=== PATIENT | male | born 1990 | race Caucasian/White ===

== ENCOUNTER 2017-05-18 21:27 | Emergency (ER) | payer OTHER ==
--- NOTE | 2017-05-18 23:30 | ERPHSYRPT ---
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 ALERT/ORIENTED - FLAT AFFECT. SKIN FLUSHED/HOT/DRY - NO RASH/INJURY APPRECIATED. RESPS EASY NON-LABORED Physician History: The patient is a 27-year-old male with his mother and is a poor historian. He states that he used to weigh 285 pounds and now weighs 250 pounds. At first he said he lost the 35 pounds in a period of 2 2-1/2 weeks but his mother corrected him saying that it has been several months. For several weeks after eating he sometimes vomits a partial amount of his food. It begins by belching and then he vomits because it makes him breathe better. He is been trying to watch is diet and eat better. He denies having any vomiting or abdominal pain today. He saw his family doctor a few weeks ago and was told this might be his gallbladder. He also complains that he smelled and irritating gas at work several weeks ago when bleach and on discharge detergent were mixed in a drain. His past medical history is unremarkable. Timing/Duration: week(s) (several) Severity: mild Modifying Factors: Improves With: eating Associated Symptoms: nausea, vomiting Allergies/Adverse Reactions: No Known Drug Allergies Allergy (Unverified 05/18/17 22:23) Hx Tetanus, Diphtheria Vaccination/Date Given: Yes Hx Influenza Vaccination/Date Given: No Hx Pneumococcal Vaccination/Date Given: No Immunizations Up to Date: Yes - Review of Systems Constitutional: Weight Loss Eyes: No Symptoms Ears, Nose, & Throat: No Symptoms Respiratory: No Cough, No Dyspnea Cardiac: No Chest Pain, No Edema, No Syncope Abdominal/Gastrointestinal: Vomiting Genitourinary Symptoms: No Dysuria Musculoskeletal: No Back Pain, No Neck Pain Skin: No Rash Neurological: No Dizziness, No Focal Weakness, No Sensory Changes Psychological: No Symptoms Endocrine: No Symptoms Hematologic/Lymphatic: No Symptoms Immunological/Allergic: No Symptoms All Other Systems: Reviewed and Negative - Past Medical History Pertinent Past Medical History: No - Past Surgical History Past Surgical History: No - Social History Smoking Status: Never smoker Exposure to second hand smoke: No Drug Use: none Patient Lives Alone: No - Nursing Vital Signs Nursing Vital Signs: Initial Vital Signs Temperature 98.5 F Temperature Source Oral Pulse Rate 78 Respiratory Rate 18 Blood Pressure [Left Arm] 121/81 Pain Intensity 0 - Physical Exam General Appearance: no apparent distress, alert Eye Exam: PERRL/EOMI, eyes nml inspection Ears, Nose, Throat Exam: normal ENT inspection, TMs normal, pharynx normal, moist mucous membranes Neck Exam: normal inspection, non-tender, supple, full range of motion Respiratory Exam: normal breath sounds, lungs clear, No respiratory distress Cardiovascular Exam: regular rate/rhythm, normal heart sounds, normal peripheral pulses Gastrointestinal/Abdomen Exam: soft, normal bowel sounds, No tenderness, No mass Rectal Exam: not done Back Exam: normal inspection, normal range of motion, No CVA tenderness, No vertebral tenderness Extremity Exam: normal inspection, normal range of motion, pelvis stable Neurologic Exam: alert, oriented x 3, cooperative, normal mood/affect, nml cerebellar function, nml station & gait, sensation nml, No motor deficits Skin Exam: normal color, warm, dry, No rash Lymphatic Exam: No adenopathy SpO2 Interpretation: normal SpO2: 97 Oxygen Delivery: Room Air - Radiology Exams Abdomen X-ray Interpretation: Interpreted by me, Negative Ordered Tests: Active Orders 24 hr Category Date Time Status KUB Stat Exams 05/18/17 23:35 Taken CBC W DIFF Stat Lab 05/18/17 23:45 Completed CMP Stat Lab 05/18/17 23:45 Completed LIPASE Stat Lab 05/18/17 23:45 Completed Lab/Rad Data: Laboratory Result Diagrams 05/18/17 23:45 05/18/17 23:45 Laboratory Results 05/18/17 05/18/17 Range/Units 23:45 23:45 WBC 5.6 (4.0-10.5) K/mm3 RBC 5.11 (4.1-5.6) M/mm3 Hgb 15.6 (12.5-18.0) gm/dl Hct 44.8 (42-50) % MCV 87.7 (78-100) fl MCH 30.5 (26-32) pg MCHC 34.8 (32-36) g/dl RDW 13.0 (11.5-14.0) % Plt Count 192 (150-450) K/mm3 MPV 11.2 H (6-9.5) fl Gran % 42.7 (36.0-66.0) % Lymphocytes % 42.0 (24.0-44.0) % Monocytes % 14.2 H (0.0-12.0) % Eosinophils % 0.9 (0.00-5.0) % Basophils % 0.2 (0.0-0.4) % Basophils # 0.01 (0-0.4) Sodium 140 (136-145) mEq/L Potassium 3.3 L (3.5-5.1) mEq/L Chloride 104 (98-107) mEq/L Carbon Dioxide 23.5 (21-32) mEq/L Anion Gap 16.0 H (5-15) MEQ/L BUN 13 (9-20) mg/dL Creatinine 0.74 (0.55-1.30) mg/dl Estimated GFR > 60 ML/MIN Glucose 99 (70-110) MG/DL Calcium 9.2 (8.5-10.1) mg/dL Total Bilirubin 0.80 (0.2-1.0) mg/dL AST 22 (15-37) U/L ALT 48 (12-78) U/L Alkaline Phosphatase 38 L (46-116) U/L Serum Total Protein 7.2 (6.4-8.2) gm/dL Albumin 4.1 (3.4-5.0) g/dL Lipase 106 (73-393) U/L - Progress Progress: unchanged Counseled pt/family regarding: lab results, diagnosis, need for follow-up - Departure Time of Disposition: 00:43 Departure Disposition: Home Clinical Impression: Vomiting Condition: Stable Critical Care Time: No Additional Instructions: You have intermittent vomiting from an unknown cause. Your laboratory results including the white count, kidney function, liver function, and pancreatic enzymes were all normal. X-ray of your abdomen was normal. Take Zofran 4 mg every 6 hours as needed for nausea and vomiting. Follow-up with Dr. Vizcaino to discuss further evaluation and studies. Prescriptions: Ondansetron [Zofran Odt] 4 mg PO Q6HPRN PRN #10 tab.rapdis PRN Reason: Nausea/Vomiting
[2017-05-18 23:49] LABS: BASOPHIL % 0.2 % (0.0-0.4); Eosinophil % 0.9 % (0.00-5.0); Granulocytes % 42.7 % (36.0-66.0); Mean Cell Volume 87.7 fl (78-100); Mean Corpuscular Hemoglobin 30.5 pg (26-32); Mean Platelet Volume 11.2 fl (6-9.5); Monocytes % 14.2 % (0.0-12.0); Platelet Count 192 K/mm3 (150-450); Red Blood Count 5.11 M/mm3 (4.1-5.6); White Blood Count 5.6 K/mm3 (4.0-10.5)
[2017-05-19 00:01] VITALS: PULSE 78
[2017-05-19 00:07] LABS: ALBUMIN 4.1 g/dL (3.4-5.0); ALKALINE PHOSPHATASE 38 U/L (46-116); BLOOD UREA NITROGEN 13 mg/dL (9-20); CHLORIDE 104 mEq/L (98-107); Carbon Dioxide 23.5 mEq/L (21-32); Glucose 99 MG/DL (70-110); LIPASE 106 U/L (73-393); Potassium 3.3 mEq/L (3.5-5.1); SGOT/AST 22 U/L (15-37); SGPT/ALT 48 U/L (12-78); SODIUM 140 mEq/L (136-145); Total Protein 7.2 gm/dL (6.4-8.2)
[2017-05-19 00:47] VITALS: O2SAT 97
[2017-05-19 00:59] VITALS: BP 128/78
--- NOTE | 2017-05-21 08:51 | XRAY ---
Indication: Emesis. Comparison: None KUB nonacute and nonobstructed. Solid organs and osseous structures unremarkable.
== END 2017-05-19 00:59 | disposition home or self-care (01) ==
LOC: ED 21:27
DX: R11.2 Nausea with vomiting, unspecified (principal); R10.10 Upper abdominal pain, unspecified; R63.4 Abnormal weight loss
CPT/HCPCS: 36415; 74000; 80053; 83690; 85025; 99284

== ENCOUNTER 2017-06-22 05:47 | Day surgery (SDC) | payer OTHER ==
[2017-06-22] MEDS ORDERED: Lactated Ringers 1,000 ML IV SCH (07:00)
[2017-06-22 07:54] VITALS: O2SAT 98
[2017-06-22] MEDS ORDERED: DIPRIVAN 200 MG/20 ML IV ONE (08:00)
[2017-06-22] MEDS ORDERED: Versed 2 MG/2 ML Injection IV ONE (08:00)
--- NOTE | 2017-06-22 08:03 | OP ---
SURGERY DATE/TIME: 06/22/2017 0651 PREOPERATIVE DIAGNOSIS: Persistent vomiting. POSTOPERATIVE DIAGNOSES: 1) Mild gastritis. 2) Mild esophagitis. PROCEDURE: Esophagogastroduodenoscopy with biopsy. SURGEON: Dr. Torres. ANESTHESIA: Medications were given by the anesthesia department. BRIEF HISTORY: The patient is a 27 year old white male patient presenting now for complaints of persistent vomiting over the last three months. He has been on omeprazole but not improving. He had a gallbladder ultrasound which was negative. The patient was felt the need to have endoscopic evaluation. He was appraised of the risks of the procedure including the risk of perforation, phlebitis, untoward reaction to medication, bleeding and missed lesions. The patient verbalized his understanding and desired to have the procedure performed. DESCRIPTION OF PROCEDURE: The patient was given the medications by the anesthesia department. He had continuous pulse oximetry, ECG monitoring, intermittent blood pressure monitoring and tidal CO2 monitoring during the examination. He was placed in the left lateral decubitus position. A bite block was placed. The flexible Olympus gastroscope was used to intubate the oropharynx. A view of the esophagus was developed with the scope easily passed into the esophagus. There appeared to be streaks of erythema radiating upwards from the gastroesophageal junction. They were somewhat mild in nature and consistent with a grade I esophagitis. The scope was passed into the stomach where normal gastric rugal folds were seen and these distended nicely with insufflation of air. The scope was passed along the greater curvature of the stomach to the antrum. The pylorus is encountered and intubated. The duodenum inspected and found to be normal. The scope was withdrawn towards the stomach. A retroflex view was obtained of the lesser curvature, fundus and cardia regions of the stomach and these appeared to be normal. The scope was then redirected towards the gastric antrum and biopsies were obtained to rule out the presence of Helicobacter pylori-type organisms. The scope was then removed from the patient who tolerated the procedure well and was sent back to the hospital [facility] in good condition.
[2017-06-22 08:07] VITALS: BP 124/68; PULSE 71
== END 2017-06-22 08:10 | disposition home or self-care (01) ==
LOC: SDC 05:47
PROVIDERS: ATTEND Family Medicine
PROC: 0DB78ZX Excision of Stomach, Pylorus, Via Natural or Artificial Opening Endoscopic, Diagnostic (ICD-10-PCS; principal; 2017-06-22)
DX: K29.70 Gastritis, unspecified, without bleeding (principal); K20.9 Esophagitis, unspecified
CPT/HCPCS: 00740; 36415; 88305; J2250; J2704

== ENCOUNTER 2017-06-25 20:45 | Emergency (ER) | payer OTHER ==
[2017-06-25] MEDS ORDERED: GI COCKTAIL 60ML (Belladonn/Phenobarb/Lidoc PO ONE (21:26)
[2017-06-25] MEDS ORDERED: Zofran 4 MG/2 ML VIAL IV ONE (21:26)
[2017-06-25] MEDS ORDERED: Sodium Chloride 0.9% 1000 ML 1,000 ML IV STA (21:26)
--- NOTE | 2017-06-25 21:26 | ERPHSYRPT ---
- History of Present Illness Time Seen by Provider: 06/25/17 21:16 Source: patient, family Exam Limitations: no limitations Patient Subjective Stated Complaint: PT STATES THAT HE HAD TROUBLE BREATHING TODAY AND HAS SOME TINGLING IN HIS HANDS. PT REPORTS FREQUENT BELCHING, NAUSEA AND INTERMITTENT VOMITING. PT ALSO REPORTS SOME CHEST PAIN AND REFLUX. REPORTS AT TIMES HIS CHEST PAIN IS INCREASED AFTER CERTAIN FOODS. MOTHER STATES HE HAS BEEN GOING THROUGH SOME TESTING FOR UNEXPLAINED WEIGHT LOSS. Triage Nursing Assessment: PT IS AOX3, AMBULATORY TO COT WITH NO DIFFICULTIES, RESPS ARE EASY AND NON LABORED, LUNGS SOUNDS ARE CLEAR AND EQUAL THROUGHOUT, BOWEL SOUNDS ARE PRESENT AND NORMOACTIVE, PULSES ARE STRONG AND EQUAL, HEART SOUNDS ARE NORMAL, SKIN IS PWD. NO EDEMA IS NOTED. PT IS BELCHING THROUGHOUT THIS EXAM. Physician History: The patient is a 27-year-old male with his mother complaining of shortness of breath at times today. The patient is a poor historian. He doesn't have any problems at this moment. On June 22 he had an upper GI which showed inflammation of the esophagus. He states that some foods will cause chest pain. Today he is belching frequently with nausea and intermittent vomiting. His past medical history is significant for gastritis and hypertension. Timing/Duration: today Activities at Onset: none Severity of Dyspnea-Max: mild Severity of Dyspnea-Current: none Possible Cause: no prior episodes Modifying Factors: Improves With: activity Associated Symptoms: tingling hands Allergies/Adverse Reactions: No Known Drug Allergies Allergy (Verified 06/25/17 21:00) Home Medications: Lisinopril 40 mg PO DAILY 06/21/17 [History] Omeprazole 20 MG [Prilosec 20 mg] 20 mg PO DAILY 06/21/17 [History] Hx Tetanus, Diphtheria Vaccination/Date Given: Yes Hx Influenza Vaccination/Date Given: No Hx Pneumococcal Vaccination/Date Given: No Immunizations Up to Date: Yes - Review of Systems Constitutional: No Fever, No Chills Eyes: No Symptoms Ears, Nose, & Throat: No Symptoms Respiratory: Dyspnea Cardiac: Chest Pain Abdominal/Gastrointestinal: Nausea, Vomiting Genitourinary Symptoms: No Symptoms Musculoskeletal: No Back Pain, No Neck Pain Skin: No Rash Neurological: No Dizziness, No Focal Weakness, No Sensory Changes Psychological: No Symptoms Endocrine: No Symptoms Hematologic/Lymphatic: No Symptoms Immunological/Allergic: No Symptoms All Other Systems: Reviewed and Negative - Past Medical History Pertinent Past Medical History: No Neurological History: No Pertinent History ENT History: No Pertinent History Cardiac History: No Pertinent History, Hypertension Respiratory History: No Pertinent History Endocrine Medical History: No Pertinent History Musculoskeletal History: No Pertinent History GI Medical History: No Pertinent History History: No Pertinent History Psycho-Social History: No Pertinent History Male Reproductive Disorders: No Pertinent History Other Medical History: pt states he has chest pain after eating. - Past Surgical History Past Surgical History: Yes Neuro Surgical History: No Pertinent History Cardiac: No Pertinent History Respiratory: No Pertinent History Gastrointestinal: No Pertinent History Genitourinary: No Pertinent History Musculoskeletal: Other Male Surgical History: No Pertinent History Other Surgical History: pt states he had thumb surgery when he was a baby. - Social History Smoking Status: Never smoker Exposure to second hand smoke: No Drug Use: none Patient Lives Alone: No - Nursing Vital Signs Nursing Vital Signs: Initial Vital Signs Temperature 98.3 F 06/25/17 20:46 Pulse Rate 93 H 06/25/17 20:46 Respiratory Rate 20 06/25/17 20:46 Blood Pressure 142/95 06/25/17 20:46 O2 Sat by Pulse Oximetry 96 06/25/17 20:46 Pain Scale Pain Intensity 0 - Physical Exam General Appearance: no apparent distress, alert Eye Exam: PERRL/EOMI Neck Exam: normal inspection, supple Respiratory Exam: normal breath sounds Cardiovascular/Chest Exam: normal heart sounds, regular rate/rhythm Abdominal/Gastrointestinal Exam: soft, No tenderness, No distention, No mass Rectal Exam: not done Extremity Exam: non-tender, normal range of motion, normal inspection, no calf tenderness, no pedal edema Neurologic Exam: alert, oriented x 3, cooperative, risk advisor II-XII nml as tested, sensation nml, No motor deficits Skin Exam: normal color, warm, No dry SpO2 Interpretation: normal SpO2: 96 Oxygen Delivery: Room Air - Course EKG Interpreted by Me: RATE, Sinus Rhythm, NORMAL AXIS, NORMAL INTERVALS, NORMAL QRS, NORMAL ST-T - Radiology Exams Chest X-ray Interpretation: Interpreted by me, Negative Ordered Tests: Active Orders 24 hr Category Date Time Status EKG-ER Only STAT Care 06/25/17 21:26 Active IV Insertion STAT Care 06/25/17 21:26 Active CHEST 2 VIEWS (PA AND LAT) Stat Exams 06/25/17 21:27 Taken CBC W DIFF Stat Lab 06/25/17 21:48 Completed CMP Stat Lab 06/25/17 21:48 Completed Lactic Acid Stat Lab 06/25/17 21:45 Completed TROPONIN Q3H Lab 06/25/17 21:48 Completed TROPONIN Q3H Lab 06/26/17 00:30 Ordered TROPONIN Q3H Lab 06/26/17 03:30 Ordered TROPONIN Q3H Lab 06/26/17 06:30 Ordered TROPONIN Q3H Lab 06/26/17 09:30 Ordered Medication Summary Discontinued Medications Generic Name Dose Route Start Last Admin Trade Name Draganq PRN Reason Stop Dose Admin Al Hydrox/Mg Hydrox/Simethicone Confirm 06/25/17 21:33 Maalox Es 30 Ml Unit Dose Administered 06/25/17 21:34 Dose 30 ml .ROUTE .STK-MED ONE Belladonna Alkaloids/Phenobarbital 60 ml 06/25/17 21:26 06/25/17 21:37 Gi Cocktail 60ml (Belladonn/Phenobarb/Lidoc* PO 06/25/17 21:27 60 ml STAT ONE Administration Belladonna Alkaloids/Phenobarbital Confirm 06/25/17 21:34 Donnatol Liquid Administered 06/25/17 21:35 Dose 64.8 mg .ROUTE .STK-MED ONE Sodium Chloride 1,000 mls @ 999 mls/hr 06/25/17 21:26 06/25/17 21:37 Sodium Chloride 0.9% 1000 Ml IV 06/25/17 22:26 999 mls/hr .Q1H1M STA Administration Sodium Chloride Confirm 06/25/17 21:33 Sodium Chloride 0.9% 1000 Ml Administered 06/25/17 21:34 Dose 1,000 mls @ ud .ROUTE .STK-MED ONE Lidocaine HCl Confirm 06/25/17 21:32 Xylocaine Viscous 2% 20 Ml Cup Administered 06/25/17 21:33 Dose 20 ml .ROUTE .STK-MED ONE Ondansetron HCl 4 mg 06/25/17 21:26 06/25/17 21:37 Zofran 4 Mg/2 Ml Vial IV 06/25/17 21:27 4 mg STAT ONE Administration Ondansetron HCl Confirm 06/25/17 21:35 Zofran 4 Mg/2 Ml Vial Administered 06/25/17 21:36 Dose 4 mg .ROUTE .STK-MED ONE Lab/Rad Data: Laboratory Result Diagrams 06/25/17 21:48 06/25/17 21:48 Laboratory Results 06/25/17 06/25/17 06/25/17 Range/Units 21:48 21:48 21:48 WBC 6.6 (4.0-10.5) K/mm3 RBC 5.12 (4.1-5.6) M/mm3 Hgb 15.4 (12.5-18.0) gm/dl Hct 44.9 (42-50) % MCV 87.7 (78-100) fl MCH 30.1 (26-32) pg MCHC 34.3 (32-36) g/dl RDW 12.7 (11.5-14.0) % Plt Count 196 (150-450) K/mm3 MPV 11.8 H (6-9.5) fl Gran % 47.9 (36.0-66.0) % Lymphocytes % 37.9 (24.0-44.0) % Monocytes % 13.2 H (0.0-12.0) % Eosinophils % 0.8 (0.00-5.0) % Basophils % 0.2 (0.0-0.4) % Basophils # 0.01 (0-0.4) Sodium 143 (136-145) mEq/L Potassium 3.4 L (3.5-5.1) mEq/L Chloride 106 (98-107) mEq/L Carbon Dioxide 24.5 (21-32) mEq/L Anion Gap 15.7 H (5-15) MEQ/L BUN 13 (9-20) mg/dL Creatinine 0.93 (0.55-1.30) mg/dl Estimated GFR > 60 ML/MIN Glucose 90 (70-110) MG/DL Lactic Acid (0.4-2.0) Calcium 9.3 (8.5-10.1) mg/dL Total Bilirubin 0.60 (0.2-1.0) mg/dL AST 22 (15-37) U/L ALT 38 (12-78) U/L Alkaline Phosphatase 53 (46-116) U/L Troponin I < 0.017 (0.000-0.056) ng/ml Serum Total Protein 7.0 (6.4-8.2) gm/dL Albumin 4.3 (3.4-5.0) g/dL 06/25/17 Range/Units 21:45 WBC (4.0-10.5) K/mm3 RBC (4.1-5.6) M/mm3 Hgb (12.5-18.0) gm/dl Hct (42-50) % MCV (78-100) fl MCH (26-32) pg MCHC (32-36) g/dl RDW (11.5-14.0) % Plt Count (150-450) K/mm3 MPV (6-9.5) fl Gran % (36.0-66.0) % Lymphocytes % (24.0-44.0) % Monocytes % (0.0-12.0) % Eosinophils % (0.00-5.0) % Basophils % (0.0-0.4) % Basophils # (0-0.4) Sodium (136-145) mEq/L Potassium (3.5-5.1) mEq/L Chloride (98-107) mEq/L Carbon Dioxide (21-32) mEq/L Anion Gap (5-15) MEQ/L BUN (9-20) mg/dL Creatinine (0.55-1.30) mg/dl Estimated GFR ML/MIN Glucose (70-110) MG/DL Lactic Acid 1.3 (0.4-2.0) Calcium (8.5-10.1) mg/dL Total Bilirubin (0.2-1.0) mg/dL AST (15-37) U/L ALT (12-78) U/L Alkaline Phosphatase (46-116) U/L Troponin I (0.000-0.056) ng/ml Serum Total Protein (6.4-8.2) gm/dL Albumin (3.4-5.0) g/dL - Progress Progress: improved Blood Culture(s) Obtained: No Antibiotics given: No Counseled pt/family regarding: lab results, diagnosis, need for follow-up, rad results - Departure Time of Disposition: 22:38 Departure Disposition: Home Clinical Impression: Gastritis, Hypokalemia, Vomiting Condition: Stable Critical Care Time: No Additional Instructions: You have gastritis. This is caused 2 to have nausea and vomiting. The vomiting has decreased your serum potassium level slightly. In the ER you were given 1 L of normal saline by IV as well as Zofran 4 mg. You were also given a GI cocktail. You were given potassium 20 mEq. Take Zofran 4 mg ODT every 6 hours as needed for nausea and vomiting. Follow-up as scheduled. Prescriptions: Ondansetron [Zofran Odt] 4 mg PO Q6HPRN PRN #10 tab.rapdis PRN Reason: Nausea/Vomiting
[2017-06-25] MEDS ORDERED: XYLOCAINE VISCOUS 2% 20 ML CUP ONE (21:32)
[2017-06-25] MEDS ORDERED: MAALOX ES 30 ML UNIT DOSE ONE (21:33)
[2017-06-25] MEDS ORDERED: Sodium Chloride 0.9% 1000 ML 1,000 ML ONE (21:33)
[2017-06-25] MEDS ORDERED: Donnatol Liquid ONE (21:34)
[2017-06-25] MEDS ORDERED: Zofran 4 MG/2 ML VIAL ONE (21:35)
[2017-06-25 21:54] LABS: BASOPHIL % 0.2 % (0.0-0.4); Eosinophil % 0.8 % (0.00-5.0); Granulocytes % 47.9 % (36.0-66.0); Lymphocytes % 37.9 % (24.0-44.0); Mean Cell Volume 87.7 fl (78-100); Mean Corpuscular Hemoglobin 30.1 pg (26-32); Mean Platelet Volume 11.8 fl (6-9.5); Monocytes % 13.2 % (0.0-12.0); Platelet Count 196 K/mm3 (150-450); Red Blood Count 5.12 M/mm3 (4.1-5.6); Red Cell Distribution Width 12.7 % (11.5-14.0); White Blood Count 6.6 K/mm3 (4.0-10.5)
[2017-06-25 22:04] VITALS: PULSE 76
[2017-06-25 22:14] LABS: ALBUMIN 4.3 g/dL (3.4-5.0); ALKALINE PHOSPHATASE 53 U/L (46-116); ANION GAP 15.7 MEQ/L (5-15); BLOOD UREA NITROGEN 13 mg/dL (9-20); CHLORIDE 106 mEq/L (98-107); Carbon Dioxide 24.5 mEq/L (21-32); Glucose 90 MG/DL (70-110); Potassium 3.4 mEq/L (3.5-5.1); SGOT/AST 22 U/L (15-37); SGPT/ALT 38 U/L (12-78); SODIUM 143 mEq/L (136-145)
[2017-06-25] MEDS ORDERED: Klor Con 10 MEQ PO ONE ×2 (22:39→22:44)
[2017-06-25 22:54] VITALS: BP 121/73; O2SAT 99
--- NOTE | 2017-06-26 08:36 | XRAY ---
Indication: Chest pain, short of breath, congestion, cough, and fever for 3 months. Comparison: None PA/lateral chest demonstrates normal heart and lungs. Bony thorax intact.
== END 2017-06-25 22:54 | disposition home or self-care (01) ==
LOC: ED 20:45
DX: K29.70 Gastritis, unspecified, without bleeding (principal); E87.6 Hypokalemia; R11.2 Nausea with vomiting, unspecified; R07.9 Chest pain, unspecified; R06.02 Shortness of breath; R14.2 Eructation; I10 Essential (primary) hypertension; Z79.899 Other long term (current) drug therapy
CPT/HCPCS: 36000; 36415; 71020; 80053; 83605; 84484; 85025; 93005; 96374; 99284; J2405; A9270-GY

== ENCOUNTER 2017-07-20 20:03 | Emergency (ER) | payer OTHER ==
[2017-07-20] MEDS ORDERED: Ativan 1 MG PO ONE (20:53)
[2017-07-20] MEDS ORDERED: Ativan 1 MG ONE (20:59)
--- NOTE | 2017-07-20 20:59 | ERPHSYRPT ---
- History of Present Illness Time Seen by Provider: 07/20/17 20:12 Source: patient, family Patient Subjective Stated Complaint: pt states he has been having trouble thinking today. states while washing his hands he began feeling panicked and began having difficulty thinking. states he feels like he has a band around his head- has been having this pressure in head for about a month. pt states he has been having a lot of stress lately Triage Nursing Assessment: pt awake and alert, answers questions but has difficulty answerign some questions. pt ambualtory with steady gait noted. respriations nonlabored with llungs cta. skin pink warm and dry. pupils equal and reactive. bilat upper and lower ext strength strong and equal bilat. Physician History: He has a baseline learning disability, but today for past 3 hours, he feels like he cannot think correctly. He has frequent panic attacks and felt like this all began with a panic attack. Time of Onset/Last Time Seen Normal: 3 hours ago. Timing/Duration: today, hour(s) (3) Severity: mild Character of Deficits: none Baseline/Normal Cognition: alert oriented x 3 Current Cognition: alert oriented x 3 Associated Symptoms: headache, No confusion, No fever, No loss of consciousness , No nausea, No vomiting, No weakness, No insomnia, No muscle spasms, No numbness/tingling in legs/feet, No paresthesia, No ringing in ears, No seizures , No slurred speech, No trouble walking, No vision changes, No chest pain Allergies/Adverse Reactions: No Known Drug Allergies Allergy (Verified 07/20/17 20:28) Home Medications: Omeprazole 20 MG [Prilosec 20 mg] 20 mg PO BID 06/21/17 [History] Hx Tetanus, Diphtheria Vaccination/Date Given: Yes Hx Influenza Vaccination/Date Given: No Hx Pneumococcal Vaccination/Date Given: No Immunizations Up to Date: Yes - Review of Systems Constitutional: No Symptoms Eyes: No Symptoms Ears, Nose, & Throat: No Symptoms Respiratory: No Symptoms Cardiac: No Symptoms Abdominal/Gastrointestinal: No Symptoms Musculoskeletal: No Symptoms Skin: No Symptoms Neurological: Other (He states that he feels like a band around his head.) Psychological: Anxiety Endocrine: No Symptoms Hematologic/Lymphatic: No Symptoms Immunological/Allergic: No Symptoms All Other Systems: Reviewed and Negative - Past Medical History Pertinent Past Medical History: Yes Neurological History: No Pertinent History, Other (Learning Disability) ENT History: No Pertinent History Cardiac History: Hypertension Respiratory History: No Pertinent History Endocrine Medical History: No Pertinent History Musculoskeletal History: No Pertinent History GI Medical History: GERD History: No Pertinent History Psycho-Social History: No Pertinent History Male Reproductive Disorders: No Pertinent History Other Medical History: states he is no longer on bp meds since losing weight - Past Surgical History Past Surgical History: Yes Neuro Surgical History: No Pertinent History Cardiac: No Pertinent History Respiratory: No Pertinent History Gastrointestinal: No Pertinent History Genitourinary: No Pertinent History Musculoskeletal: Other Male Surgical History: No Pertinent History Other Surgical History: pt states he had thumb surgery when he was a baby. - Social History Smoking Status: Never smoker Exposure to second hand smoke: No Drug Use: none Patient Lives Alone: No - Nursing Vital Signs Nursing Vital Signs: Initial Vital Signs Temperature 98.7 F 07/20/17 20:11 Pulse Rate 102 H 07/20/17 20:11 Respiratory Rate 20 07/20/17 20:11 Blood Pressure 147/88 07/20/17 20:11 O2 Sat by Pulse Oximetry 99 07/20/17 20:11 Pain Scale Pain Intensity 3 - [place] Coma Scale Best Eye Response ([place]): (4) open spontaneously Best Verbal Response ([place]): (5) oriented Best Motor Response ([place]): (6) obeys commands [place] Total: 15 - Physical Exam General Appearance: no apparent distress, alert, anxiety Eye Exam: bilateral eye: normal inspection, PERRL, EOMI Ears, Nose, Throat Exam: normal ENT inspection, TMs normal, pharynx normal, moist mucous membranes Neck Exam: normal inspection, non-tender, supple, full range of motion Respiratory: normal breath sounds, lungs clear, airway intact, No chest tenderness, No respiratory distress Cardiovascular: regular rate/rhythm, normal heart sounds, normal peripheral pulses Gastrointestinal: soft, normal bowel sounds, No tenderness, No distention Back Exam: normal inspection, normal range of motion Extremity Exam: normal inspection, normal range of motion, pelvis stable Peripheral Pulses: dorsalis-pedis (R): 3+, dorsalis-pedis (L): 3+ Mental Status: alert, oriented x 3, 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 Exam: normal hearing, normal speech, PERRL Coordination/Gait: normal gait Motor/Sensory: no motor deficit, no sensory deficit, no pronator drift, No pronator drift (R), No pronator drift (L), No sensory deficit, No weak motor strength RUE, No weak motor strength LUE, No weak motor strength RLE, No weak motor strength LLE Skin Exam: normal color, warm, dry SpO2 Interpretation: normal SpO2: 99 Oxygen Delivery: Room Air - Course Nursing assessment & vital signs reviewed: Yes - CT Exams Head CT Interpretation: Negative Ordered Tests: Active Orders 24 hr Category Date Time Status HEAD WITHOUT CONTRAST [CT] Stat Exams 07/20/17 20:49 Taken CBC W DIFF Stat Lab 07/20/17 21:05 Completed CMP Stat Lab 07/20/17 21:05 Completed PROTIME WITH INR Stat Lab 07/20/17 20:48 Completed UA W/RFX UR CULTURE Stat Lab 07/20/17 20:49 Ordered Medication Summary Discontinued Medications Generic Name Dose Route Start Last Admin Trade Name Freq PRN Reason Stop Dose Admin Lorazepam 1 mg 07/20/17 20:53 07/20/17 20:59 Ativan 1 Mg PO 07/20/17 20:54 1 mg STAT ONE Administration Lorazepam Confirm 07/20/17 20:59 Ativan 1 Mg Administered 07/20/17 21:00 Dose 1 mg .ROUTE .STK-MED ONE Lab/Rad Data: Laboratory Result Diagrams 07/20/17 21:05 07/20/17 21:05 Laboratory Results 07/20/17 07/20/17 07/20/17 Range/Units 21:05 21:05 20:48 WBC 7.3 (4.0-10.5) K/mm3 RBC 4.86 (4.1-5.6) M/mm3 Hgb 14.5 (12.5-18.0) gm/dl Hct 43.3 (42-50) % MCV 89.1 (78-100) fl MCH 29.8 (26-32) pg MCHC 33.5 (32-36) g/dl RDW 12.7 (11.5-14.0) % Plt Count 177 (150-450) K/mm3 MPV 11.6 H (6-9.5) fl Gran % 80.5 H (36.0-66.0) % Lymphocytes % 10.7 L (24.0-44.0) % Monocytes % 8.3 (0.0-12.0) % Eosinophils % 0.4 (0.00-5.0) % Basophils % 0.1 (0.0-0.4) % Basophils # 0.01 (0-0.4) INR 1.08 (0.8-3.0) Sodium 143 (136-145) mEq/L Potassium 4.0 (3.5-5.1) mEq/L Chloride 107 (98-107) mEq/L Carbon Dioxide 26.0 (21-32) mEq/L Anion Gap 13.9 (5-15) MEQ/L BUN 8 L (9-20) mg/dL Creatinine 0.95 (0.55-1.30) mg/dl Estimated GFR > 60 ML/MIN Glucose 110 (70-110) MG/DL Calcium 9.6 (8.5-10.1) mg/dL Total Bilirubin 0.40 (0.2-1.0) mg/dL AST 20 (15-37) U/L ALT 26 (12-78) U/L Alkaline Phosphatase 43 L (46-116) U/L Serum Total Protein 6.8 (6.4-8.2) gm/dL Albumin 4.0 (3.4-5.0) g/dL - Progress Progress: improved Discussed with : Other Will see patient in: office (PCP 1 week) Counseled pt/family regarding: lab results, diagnosis, need for follow-up, rad results - Departure Time of Disposition: 21:45 Departure Disposition: Home Clinical Impression: Anxiety Condition: Stable Critical Care Time: No Referrals: RENATA CUELLO [Primary Care Provider] -
[2017-07-20 21:10] LABS: BASOPHIL % 0.1 % (0.0-0.4); Eosinophil % 0.4 % (0.00-5.0); Granulocytes % 80.5 % (36.0-66.0); Lymphocytes % 10.7 % (24.0-44.0); Mean Cell Volume 89.1 fl (78-100); Mean Corpuscular Hemoglobin 29.8 pg (26-32); Mean Platelet Volume 11.6 fl (6-9.5); Monocytes % 8.3 % (0.0-12.0); Platelet Count 177 K/mm3 (150-450); Red Blood Count 4.86 M/mm3 (4.1-5.6); Red Cell Distribution Width 12.7 % (11.5-14.0); White Blood Count 7.3 K/mm3 (4.0-10.5)
[2017-07-20 21:30] LABS: ALKALINE PHOSPHATASE 43 U/L (46-116); ANION GAP 13.9 MEQ/L (5-15); BLOOD UREA NITROGEN 8 mg/dL (9-20); CHLORIDE 107 mEq/L (98-107); Glucose 110 MG/DL (70-110); SGOT/AST 20 U/L (15-37); SGPT/ALT 26 U/L (12-78); SODIUM 143 mEq/L (136-145); Total Protein 6.8 gm/dL (6.4-8.2)
[2017-07-20 21:34] LABS: INR 1.08 (0.8-3.0); PROTIME 12.2 SECONDS (8.83-12.87)
[2017-07-20 22:19] LABS: ADD URINE CULTURE? NO (NO); Bilirubin NEGATIVE (NEGATIVE); Blood NEGATIVE Ery/ul (0-5); COMPLETE URINE MICROSCOPIC? NO; Collection Type CLEAN CATCH; Glucose NEGATIVE (NEGATIVE); Leukocyte Esterase NEGATIVE (NEGATIVE)
[2017-07-20 22:42] VITALS: BP 127/70; PULSE 76; O2SAT 100
--- NOTE | 2017-07-21 08:58 | XRAY ---
Indication: Decrease cognition. " Bandlike tightening pressure." Multiple contiguous axial images obtained through the head without contrast. Comparison: None Normal appearing brain parenchyma, ventricles, and bony calvarium. Visualized paranasal sinuses and mastoid air cells clear. Impression: Normal CT head without contrast exam. Comment: Preliminary interpretation was made by [facility]. No discrepancy. CTDI 70.94
== END 2017-07-20 22:41 | disposition home or self-care (01) ==
LOC: ED 20:03
DX: F41.9 Anxiety disorder, unspecified (principal); F81.89 Other developmental disorders of scholastic skills; F41.0 Panic disorder [episodic paroxysmal anxiety]; I10 Essential (primary) hypertension
CPT/HCPCS: 36415; 70450; 80053; 81002; 85025; 85610; 99284; A9270-GY

== ENCOUNTER 2017-08-12 20:29 | Emergency (ER) | payer OTHER ==
[2017-08-12] MEDS ORDERED: Geodon 20 MG INJ IM ONE ×2 (20:46→20:58)
[2017-08-12 21:03] LABS: BASOPHIL % 0.3 % (0.0-0.4); Eosinophil % 0.3 % (0.00-5.0); Granulocytes % 59.8 % (36.0-66.0); Lymphocytes % 26.7 % (24.0-44.0); Mean Cell Volume 89.9 fl (78-100); Mean Corpuscular Hemoglobin 30.2 pg (26-32); Monocytes % 12.9 % (0.0-12.0); Platelet Count 191 K/mm3 (150-450); Red Blood Count 5.43 M/mm3 (4.1-5.6); Red Cell Distribution Width 13.5 % (11.5-14.0)
[2017-08-12 21:20] LABS: ALBUMIN 5.1 g/dL (3.4-5.0); ALKALINE PHOSPHATASE 44 U/L (46-116); ANION GAP 18.1 MEQ/L (5-15); BLOOD UREA NITROGEN 18 mg/dL (9-20); CHLORIDE 108 mEq/L (98-107); Carbon Dioxide 25.7 mEq/L (21-32); ETHYL ALCOHOL < 0.010 % (0.00-0.01); Glucose 94 MG/DL (70-110); Potassium 3.7 mEq/L (3.5-5.1); SGOT/AST 16 U/L (15-37); SGPT/ALT 26 U/L (12-78); SODIUM 148 mEq/L (136-145); Total Protein 7.8 gm/dL (6.4-8.2)
[2017-08-12 21:25] LABS: ACETAMINOPHEN < 2.0 ug/ml (10-30)
[2017-08-12 21:32] LABS: ADD URINE CULTURE? NO (NO); Bilirubin NEGATIVE (NEGATIVE); Blood NEGATIVE Ery/ul (0-5); COMPLETE URINE MICROSCOPIC? NO; Collection Type CLEAN CATCH; Glucose 50 mg/dL (NEGATIVE); Leukocyte Esterase NEGATIVE (NEGATIVE)
--- NOTE | 2017-08-12 23:34 | ERPHSYRPT ---
- History of Present Illness Source: patient, family (parents), EMS Patient Subjective Stated Complaint: PER POLICE CALLED FOR PERSON TRYING TO BREAK INTO HOME, PATIENT CONFUSED AND IRRATIONAL THOUGHTS, Triage Nursing Assessment: PER POLICE CALLED FOR PERSON TRYING TO BREAK INTO HOME, PATIENT CONFUSED AND IRRATIONAL THOUGHTS, PATIENT CONFUSED RAMBILING THOUGHTS, VSS, AOX3, POLICE WITH PATIENT ESCORT AT THIS TIME, PATIENT DENIES HOMICIDIAL OR SUICIDIAL THOUGHTS, Timing/Duration: today Severity of Symptoms-Max: severe Severity of Symptoms-Current: severe Hx Tetanus, Diphtheria Vaccination/Date Given: Yes Hx Influenza Vaccination/Date Given: No Hx Pneumococcal Vaccination/Date Given: No <ROMAN GALEANO - Last Filed: 08/13/17 06:42> <FANY ISLAS - Last Filed: 08/13/17 11:33> - History of Present Illness Time Seen by Provider: 08/12/17 20:37 Physician History: CC: mental disorder Hx: 27 y/o patient of Dr Renata Cuello. He has fam hx of bipolar disorder in mother. He has never been admited to [facility]. He had a panic attack a month ago. Had follow up. Started Rx of zyprexa this week but only took two tabs if any. Was supposed to start effexor next week. Today the police were called as he was banging on a girl's door. Apparently he had a fixation with this girl and stalked her 5 years ago. He had no relationship with her but had seen her working in a restaraunt. He then went to the gas station and laid on the floor. Police were called again. He ran and was caught and brought to hospital. He denies hearing voices or seeing things. He states he has thoughts he can not control. He denies suicidal ideation. Mother reports he has never slept well and suffers a sleeping disorder. Family feels he likely has bipolar disorder like mother. (ROMAN GALEANO) Allergies/Adverse Reactions: No Known Drug Allergies Allergy (Verified 07/20/17 20:28) Home Medications: Omeprazole 20 MG [Prilosec 20 mg] 20 mg PO BID 06/21/17 [History] - Past Medical History Pertinent Past Medical History: Yes Neurological History: No Pertinent History, Other (Learning Disability) ENT History: No Pertinent History Cardiac History: Hypertension Respiratory History: No Pertinent History Endocrine Medical History: No Pertinent History Musculoskeletal History: No Pertinent History GI Medical History: GERD History: No Pertinent History Psycho-Social History: Depression, Other Male Reproductive Disorders: No Pertinent History Other Medical History: PSYCH HX - Past Surgical History Past Surgical History: No Neuro Surgical History: No Pertinent History Cardiac: No Pertinent History Respiratory: No Pertinent History Gastrointestinal: No Pertinent History Genitourinary: No Pertinent History Musculoskeletal: Other Male Surgical History: No Pertinent History Other Surgical History: pt states he had thumb surgery when he was a baby. - Social History Smoking Status: Never smoker Exposure to second hand smoke: No Drug Use: none Patient Lives Alone: No (FAMILY) <GALEANOROMAN - Last Filed: 08/13/17 06:42> - Review of Systems Constitutional: No Fever, No Chills Eyes: No Symptoms Ears, Nose, & Throat: No Symptoms Respiratory: No Cough, No Dyspnea Cardiac: No Chest Pain Abdominal/Gastrointestinal: No Abdominal Pain, No Nausea, No Vomiting Genitourinary Symptoms: No Symptoms Musculoskeletal: No Back Pain, No Neck Pain, No Fall, No Injury Skin: No Rash Neurological: No Focal Weakness, No Headache, No Parasthesia Psychological: Anxiety, Emotional Lability, Hallucinations (?), No Alcohol Abuse , No Drug Abuse, No Suicidal Ideations All Other Systems: Reviewed and Negative <GALEANOROMAN Last Filed: 08/13/17 06:42> - Physical Exam General Appearance: alert, other (fairly cooperative) Eyes, Ears, Nose, Throat Exam: normal ENT inspection, moist mucous membranes Neck Exam: normal inspection, non-tender, supple Respiratory Exam: normal breath sounds, lungs clear Cardiovascular Exam: regular rate/rhythm Gastrointestinal/Abdominal Exam: soft, No tenderness, No distention Current Suicidality: denies suicide plan Neurological Exam: alert, oriented x 3 Appearance: appropriate appearance Thoughts/Hallucinations: delusions, lutheran (holding arms in front and chanting) Skin Exam: warm, dry, No rash SpO2 Interpretation: normal SpO2: 97 Oxygen Delivery: Room Air <GALEANOROMAN - Last Filed: 08/13/17 06:42> - Nursing Vital Signs Nursing Vital Signs: Initial Vital Signs Temperature 98.5 F 08/12/17 20:35 Pulse Rate 105 H 08/12/17 20:35 Respiratory Rate 12 08/12/17 20:35 Blood Pressure 150/80 08/12/17 20:35 O2 Sat by Pulse Oximetry 100 08/12/17 20:35 Pain Scale Pain Intensity 0 - Course Nursing assessment & vital signs reviewed: Yes <GALEANONONA - Last Filed: 08/13/17 06:42> Ordered Tests: Active Orders 24 hr Category Date Time Status Clean Catch Urine Specimen STAT Care 08/12/17 20:37 Active EKG-ER Only STAT Care 08/12/17 20:37 Active IV Insertion STAT Care 08/12/17 20:37 Active Regular Diet Diet 08/13/17 Breakfast Active Regular Diet Diet 08/13/17 Dinner Active ACETAMINOPHEN Stat Lab 08/12/17 20:40 Completed CBC W DIFF Stat Lab 08/12/17 20:40 Completed CMP Stat Lab 08/12/17 20:40 Completed ETHYL ALCOHOL Stat Lab 08/12/17 20:40 Completed SALICYLATE Stat Lab 08/12/17 20:40 Completed UA W/RFX UR CULTURE Stat Lab 08/12/17 21:20 Completed Urine Triage Profile Stat Lab 08/12/17 21:20 Completed Medication Summary Discontinued Medications Generic Name Dose Route Start Last Admin Trade Name Draganq PRN Reason Stop Dose Admin Lorazepam 2 mg 08/13/17 00:57 08/13/17 01:06 Ativan 2 Mg/1 Ml Vial SL 08/13/17 00:58 2 mg STAT ONE Administration Lorazepam Confirm 08/13/17 00:59 Ativan 2 Mg/1 Ml Vial Administered 08/13/17 01:00 Dose 2 mg .ROUTE .STK-MED ONE Lorazepam 2 mg 08/13/17 08:53 08/13/17 09:07 Ativan 2 Mg/1 Ml Vial IV 08/13/17 08:54 2 mg STAT ONE Administration Lorazepam Confirm 08/13/17 08:52 Ativan 2 Mg/1 Ml Vial Administered 08/13/17 08:53 Dose 2 mg .ROUTE .STK-MED ONE Ziprasidone 10 mg 08/12/17 20:46 08/12/17 21:24 Geodon 20 Mg Inj IM 08/12/17 20:47 10 mg STAT ONE Administration Ziprasidone Confirm 08/12/17 20:58 Geodon 20 Mg Inj Administered 08/12/17 20:59 Dose 20 mg IM .STK-MED ONE Ziprasidone 10 mg 08/13/17 06:03 08/13/17 06:37 Geodon 20 Mg Inj IM 08/13/17 06:04 10 mg STAT ONE Administration Lab/Rad Data: Laboratory Result Diagrams 08/12/17 20:40 08/12/17 20:40 Laboratory Results 08/12/17 08/12/17 08/12/17 Range/Units 21:20 21:20 20:40 WBC (4.0-10.5) K/mm3 RBC (4.1-5.6) M/mm3 Hgb (12.5-18.0) gm/dl Hct (42-50) % MCV (78-100) fl MCH (26-32) pg MCHC (32-36) g/dl RDW (11.5-14.0) % Plt Count (150-450) K/mm3 MPV (6-9.5) fl Gran % (36.0-66.0) % Lymphocytes % (24.0-44.0) % Monocytes % (0.0-12.0) % Eosinophils % (0.00-5.0) % Basophils % (0.0-0.4) % Basophils # (0-0.4) Sodium (136-145) mEq/L Potassium (3.5-5.1) mEq/L Chloride (98-107) mEq/L Carbon Dioxide (21-32) mEq/L Anion Gap (5-15) MEQ/L BUN (9-20) mg/dL Creatinine (0.55-1.30) mg/dl Estimated GFR ML/MIN Glucose (70-110) MG/DL Calcium (8.5-10.1) mg/dL Total Bilirubin (0.2-1.0) mg/dL AST (15-37) U/L ALT (12-78) U/L Alkaline Phosphatase (46-116) U/L Serum Total Protein (6.4-8.2) gm/dL Albumin (3.4-5.0) g/dL Ur Collection Type CLEAN CATCH Urine Color HEBER (YELLOW) Urine Appearance CLEAR (CLEAR) Urine pH 5.0 (5-6) Ur Specific Brock 1.030 (1.005-1.025) Urine Protein NEGATIVE (Negative) Urine Ketones NEGATIVE (NEGATIVE) Urine Blood NEGATIVE (0-5) Waldo/ul Urine Nitrite NEGATIVE (NEGATIVE) Urine Bilirubin NEGATIVE (NEGATIVE) Urine Urobilinogen NORMAL (0-1) mg/dL Ur Leukocyte Esterase NEGATIVE (NEGATIVE) Urine Glucose 50 (NEGATIVE) mg/dL Salicylates < 2.8 L (2.8-20.0) mg/dl Urine Opiates Level NEG. (NEGATIVE) Ur Methadone NEG. (NEGATIVE) Acetaminophen (10-30) ug/ml Urine Barbiturates NEG. (NEGATIVE) Ur Phencyclidine (PCP) NEG. (NEGATIVE) Urine Amphetamine NEG. (NEGATIVE) U Benzodiazepine Level NEG. (NEGATIVE) Urine Cocaine NEG. (NEGATIVE) Urine Marijuana (THC) NEG. (NEGATIVE) Ethyl Alcohol (0.00-0.01) % Specimen Received 08/12/17:2100 08/12/17 08/12/17 Range/Units 20:40 20:40 WBC 7.0 (4.0-10.5) K/mm3 RBC 5.43 (4.1-5.6) M/mm3 Hgb 16.4 (12.5-18.0) gm/dl Hct 48.8 (42-50) % MCV 89.9 (78-100) fl MCH 30.2 (26-32) pg MCHC 33.6 (32-36) g/dl RDW 13.5 (11.5-14.0) % Plt Count 191 (150-450) K/mm3 MPV 12.0 H (6-9.5) fl Gran % 59.8 (36.0-66.0) % Lymphocytes % 26.7 (24.0-44.0) % Monocytes % 12.9 H (0.0-12.0) % Eosinophils % 0.3 (0.00-5.0) % Basophils % 0.3 (0.0-0.4) % Basophils # 0.02 (0-0.4) Sodium 148 H (136-145) mEq/L Potassium 3.7 (3.5-5.1) mEq/L Chloride 108 H (98-107) mEq/L Carbon Dioxide 25.7 (21-32) mEq/L Anion Gap 18.1 H (5-15) MEQ/L BUN 18 (9-20) mg/dL Creatinine 0.98 (0.55-1.30) mg/dl Estimated GFR > 60 ML/MIN Glucose 94 (70-110) MG/DL Calcium 10.2 H (8.5-10.1) mg/dL Total Bilirubin 1.30 H (0.2-1.0) mg/dL AST 16 (15-37) U/L ALT 26 (12-78) U/L Alkaline Phosphatase 44 L (46-116) U/L Serum Total Protein 7.8 (6.4-8.2) gm/dL Albumin 5.1 H (3.4-5.0) g/dL Ur Collection Type Urine Color (YELLOW) Urine Appearance (CLEAR) Urine pH (5-6) Ur Specific Brock (1.005-1.025) Urine Protein (Negative) Urine Ketones (NEGATIVE) Urine Blood (0-5) Waldo/ul Urine Nitrite (NEGATIVE) Urine Bilirubin (NEGATIVE) Urine Urobilinogen (0-1) mg/dL Ur Leukocyte Esterase (NEGATIVE) Urine Glucose (NEGATIVE) mg/dL Salicylates (2.8-20.0) mg/dl Urine Opiates Level (NEGATIVE) Ur Methadone (NEGATIVE) Acetaminophen < 2.0 L (10-30) ug/ml Urine Barbiturates (NEGATIVE) Ur Phencyclidine (PCP) (NEGATIVE) Urine Amphetamine (NEGATIVE) U Benzodiazepine Level (NEGATIVE) Urine Cocaine (NEGATIVE) Urine Marijuana (THC) (NEGATIVE) Ethyl Alcohol < 0.010 (0.00-0.01) % Specimen Received - Progress Counseled pt/family regarding: lab results, diagnosis, need for follow-up <ROMAN GALEANO - Last Filed: 08/13/17 06:42> <FANY ISLAS - Last Filed: 08/13/17 11:33> - Progress Progress Note: 08/12/17 23:34 Police placed immediate mcfp for evaluation. IM kinzadon given. He has been mostly calm. No beds at [facility] or [facility] or [facility]. Attempting IP BHU placement. 08/13/17 02:46 Pt was up and agitated. Not comabtive but holding arms in front chanting. IV ativan given. Sleeping now with stable vital signs. No beds at [facility], [facility] Noon, [facility], [facility]. Also called [facility]. Spoke to intake at [facility] and they are reviewing case. 08/13/17 04:08 [facility] called back and Dr Robbins accepts but no current bed available. May be bed by noon. Parents aware. Pt sleeping. 08/13/17 06:42 He awoke and gradually was becoming more agitated. Was singing and talking to the wall. He is having trouble understanding time and day. Another dose IM geodon given. He is now eating breakfast and more relaxed. Await transfer to [facility]. landcare officer filled out emergency [facility] paperwork. (ROMAN GALEANO) 08/13/17 11:[address] Pt care discussed with Dr Galeano and care accepted from Dr Galeano at 07:00. Pt accepted for transfer to [facility] per Dr Robbins. (FANY ISLAS) - Departure Departure Disposition: Transfer ([facility]) Critical Care Time: No <ROMAN GALEANO - Last Filed: 08/13/17 06:42> - Departure Time of Disposition: 11:32 Departure Disposition: Transfer ([facility] per DR Robbins) Critical Care Time: No <FANY ISLAS - Last Filed: 08/13/17 11:33> - Departure Clinical Impression: Psychosis Qualifiers: Psychosis type: unspecified psychosis type Qualified Code(s): F29 - Unspecified psychosis not due to a substance or known physiological condition Condition: Fair Referrals: RENATA CUELLO [Primary Care Provider] - Additional Instructions: You are having a psychotic episode and are being transferred to [facility] per Dr Robbins.
[2017-08-13] MEDS ORDERED: Ativan 2 MG/1 ML VIAL SL ONE (00:57)
[2017-08-13] MEDS ORDERED: Ativan 2 MG/1 ML VIAL ONE ×3 (00:59→11:58)
[2017-08-13] MEDS ORDERED: Geodon 20 MG INJ IM ONE (06:03)
[2017-08-13] MEDS ORDERED: Ativan 2 MG/1 ML VIAL IV ONE ×2 (08:53→11:58)
[2017-08-13 11:11] VITALS: BP 156/75
[2017-08-13 12:13] VITALS: PULSE 93; O2SAT 98
== END 2017-08-13 12:44 ==
LOC: ED 20:29
DX: F29 Unspecified psychosis not due to a substance or known physiological condition (principal)
CPT/HCPCS: 36415; 80053; 80307; 81002; 85025; 93005; 96360; 96372; 96374; 96376; 99285; G0481; J2060; J3486

== ENCOUNTER 2019-04-28 07:37 | Emergency (ER) | payer OTHER ==
--- NOTE | 2019-04-28 07:39 | ERPHSYRPT ---
- History of Present Illness Time Seen by Provider: 04/28/19 07:39 Source: patient, family Exam Limitations: no limitations Physician History: 29 y/o morbidly obese white male presents with soa. pt states his sx began this morning after breakfast. he states he has to belch to catch his breath. pt denies cp, denies abd pain and denies calf pain. pt had in the past. pt states sx better after he lost weight. pt gain a lot of weight back. Timing/Duration: today Activities at Onset: none Severity of Dyspnea-Max: mild Severity of Dyspnea-Current: mild Possible Cause: occasional episodes Modifying Factors: Improves With: activity Associated Symptoms: No cough, No chest pain/discomfort, No wheezing, No hemoptysis, No calf pain, No dizziness Allergies/Adverse Reactions: No Known Drug Allergies Allergy (Verified 04/28/19 07:48) Home Medications: Lurasidone HCl [Latuda] 40 mg PO DAILY 04/28/19 [History] Phentermine HCl [Adipex-P] 37.5 mg PO DAILY 04/28/19 [History] Hx Tetanus, Diphtheria Vaccination/Date Given: Yes Hx Influenza Vaccination/Date Given: No Hx Pneumococcal Vaccination/Date Given: No - Review of Systems Constitutional: No Symptoms Eyes: No Symptoms Ears, Nose, & Throat: No Symptoms Respiratory: Dyspnea Cardiac: No Symptoms Abdominal/Gastrointestinal: No Symptoms Genitourinary Symptoms: No Symptoms Musculoskeletal: No Symptoms Skin: No Symptoms Neurological: No Symptoms Psychological: No Symptoms Endocrine: No Symptoms Hematologic/Lymphatic: No Symptoms Immunological/Allergic: No Symptoms All Other Systems: Reviewed and Negative - Past Medical History Pertinent Past Medical History: Yes Neurological History: No Pertinent History, Other (Learning Disability) ENT History: No Pertinent History Cardiac History: Hypertension Respiratory History: No Pertinent History Endocrine Medical History: No Pertinent History Musculoskeletal History: No Pertinent History GI Medical History: GERD History: No Pertinent History Psycho-Social History: Depression, Other Male Reproductive Disorders: No Pertinent History Other Medical History: PSYCH HX - Past Surgical History Past Surgical History: No Neuro Surgical History: No Pertinent History Cardiac: No Pertinent History Respiratory: No Pertinent History Gastrointestinal: No Pertinent History Genitourinary: No Pertinent History Musculoskeletal: Other Male Surgical History: No Pertinent History Other Surgical History: pt states he had thumb surgery when he was a baby. - Social History Smoking Status: Never smoker Exposure to second hand smoke: No Drug Use: none Patient Lives Alone: No (FAMILY) - Nursing Vital Signs Nursing Vital Signs: Initial Vital Signs Temperature 98.1 F 04/28/19 07:39 Pulse Rate 92 H 04/28/19 07:39 Respiratory Rate 14 04/28/19 07:39 Blood Pressure 152/98 04/28/19 07:39 O2 Sat by Pulse Oximetry 96 04/28/19 07:39 Pain Scale Pain Intensity 0 - Physical Exam General Appearance: no apparent distress, alert, anxiety Eye Exam: PERRL/EOMI, eyes nml inspection Ears, Nose, Throat Exam: hearing grossly normal, normal ENT inspection Neck Exam: normal inspection, non-tender, supple, full range of motion Respiratory Exam: normal breath sounds, lungs clear, airway intact, No chest tenderness, No respiratory distress, No diminished breath sounds Cardiovascular/Chest Exam: normal heart sounds, regular rate/rhythm, murmur Abdominal/Gastrointestinal Exam: soft, normal bowel sounds, No tenderness, No guarding Rectal Exam: not done Extremity Exam: non-tender, No normal range of motion, No normal inspection, No normal capillary refill Neurologic Exam: alert, oriented x 3, cooperative, pastoral counselor II-XII nml as tested Skin Exam: normal color, warm, dry Lymphatic Exam: No adenopathy SpO2 Interpretation: normal O2 Delivery: Room Air - Course Nursing assessment & vital signs reviewed: Yes EKG Interpreted by Me: RATE ([id number]), Sinus Rhythm, NORMAL AXIS, NORMAL INTERVALS, NORMAL QRS, Other (coomparison ekg 08/12/17 no changes) Ordered Tests: Active Orders 24 hr Category Date Time Status Circular Knife Cutter Machine STAT Care 04/28/19 07:55 Active EKG-ER Only STAT Care 04/28/19 07:54 Active IV Insertion STAT Care 04/28/19 07:54 Active Pulse Oximetry (ED) STAT Care 04/28/19 07:54 Active CHEST 1 VIEW (PORTABLE) Stat Exams 04/28/19 07:55 Completed CHEST WITH CONTRAST [CT] Stat Exams 04/28/19 08:30 Completed CBC W DIFF Stat Lab 04/28/19 08:00 Completed CMP Stat Lab 04/28/19 08:00 Completed D-DIMER QUANTITATION Stat Lab 04/28/19 08:00 Completed NT PRO BNP Stat Lab 04/28/19 08:00 Completed PROTIME WITH INR Stat Lab 04/28/19 08:00 Completed TROPONIN Q3H Lab 04/28/19 08:00 Completed TROPONIN Q3H Lab 04/28/19 11:00 Ordered TROPONIN Q3H Lab 04/28/19 14:00 Ordered TROPONIN Q3H Lab 04/28/19 17:00 Ordered TROPONIN Q3H Lab 04/28/19 20:00 Ordered Lab/Rad Data: Laboratory Result Diagrams 04/28/19 08:00 04/28/19 08:00 Laboratory Results 04/28/19 04/28/19 04/28/19 Range/Units 08:00 08:00 08:00 WBC (4.0-10.5) K/mm3 RBC (4.1-5.6) M/mm3 Hgb (12.5-18.0) gm/dl Hct (42-50) % MCV (78-100) fl MCH (26-32) pg MCHC (32-36) g/dl RDW (11.5-14.0) % Plt Count (150-450) K/mm3 MPV (6-9.5) fl Gran % (36.0-66.0) % Eos # (Auto) (0-0.5) Absolute Lymphs (auto) (1.0-4.6) Absolute Monos (auto) (0.0-1.3) Lymphocytes % (24.0-44.0) % Monocytes % (0.0-12.0) % Eosinophils % (0.00-5.0) % Basophils % (0.0-0.4) % Absolute Granulocytes (1.4-6.9) Basophils # (0-0.4) PT 10.9 (8.83-12.87) SECONDS INR 0.94 (0.8-3.0) D-Dimer 523 H* (215-500) ng/mL Sodium 142 (137-145) mmol/L Potassium 3.7 (3.5-5.1) mmol/L Chloride 105 (98-107) mmol/L Carbon Dioxide 25 (22-30) mmol/L Anion Gap 15.7 H (5-15) MEQ/L BUN 16 (9-20) mg/dL Creatinine 0.63 L (0.66-1.25) mg/dL Estimated GFR > 60.0 ML/MIN Glucose 147 H (74-106) mg/dL Calcium 9.5 (8.4-10.2) mg/dL Total Bilirubin 0.40 (0.2-1.3) mg/dL AST 36 (17-59) U/L ALT 42 (0-50) U/L Alkaline Phosphatase 50 (38-126) U/L Troponin I < 0.012 (0.000-0.034) ng/mL NT-Pro-B Natriuret Pep < 11.1 (0-450) pg/mL Serum Total Protein 7.4 (6.3-8.2) g/dL Albumin 4.1 (3.5-5.0) g/dL 04/28/19 Range/Units 08:00 WBC 6.8 (4.0-10.5) K/mm3 RBC 4.89 (4.1-5.6) M/mm3 Hgb 14.7 (12.5-18.0) gm/dl Hct 44.3 (42-50) % MCV 90.6 (78-100) fl MCH 30.1 (26-32) pg MCHC 33.2 (32-36) g/dl RDW 13.8 (11.5-14.0) % Plt Count 203 (150-450) K/mm3 MPV 10.8 H (6-9.5) fl Gran % 56.8 (36.0-66.0) % Eos # (Auto) 0.10 (0-0.5) Absolute Lymphs (auto) 2.14 (1.0-4.6) Absolute Monos (auto) 0.69 (0.0-1.3) Lymphocytes % 31.3 (24.0-44.0) % Monocytes % 10.1 (0.0-12.0) % Eosinophils % 1.5 (0.00-5.0) % Basophils % 0.3 (0.0-0.4) % Absolute Granulocytes 3.88 (1.4-6.9) Basophils # 0.02 (0-0.4) PT (8.83-12.87) SECONDS INR (0.8-3.0) D-Dimer (215-500) ng/mL Sodium (137-145) mmol/L Potassium (3.5-5.1) mmol/L Chloride (98-107) mmol/L Carbon Dioxide (22-30) mmol/L Anion Gap (5-15) MEQ/L BUN (9-20) mg/dL Creatinine (0.66-1.25) mg/dL Estimated GFR ML/MIN Glucose (74-106) mg/dL Calcium (8.4-10.2) mg/dL Total Bilirubin (0.2-1.3) mg/dL AST (17-59) U/L ALT (0-50) U/L Alkaline Phosphatase (38-126) U/L Troponin I (0.000-0.034) ng/mL NT-Pro-B Natriuret Pep (0-450) pg/mL Serum Total Protein (6.3-8.2) g/dL Albumin (3.5-5.0) g/dL - Progress Progress: re-examined Air Movement: good Progress Note: 04/28/19 09:52 cta chest-no large central pulmonary emboli seen. limited view but no obvious distal pulmonary emboli Blood Culture(s) Obtained: No Antibiotics given: No Counseled pt/family regarding: lab results, diagnosis, need for follow-up, rad results - Departure Departure Disposition: Home Clinical Impression: Shortness of breath Condition: Stable Critical Care Time: No Referrals: SEPIDEH ALLAN [Primary Care Provider] - Additional Instructions: follow up with primary doctor for further management
[2019-04-28 07:48] VITALS: PULSE 92
[2019-04-28 08:03] VITALS: O2SAT 95
[2019-04-28 08:05] LABS: BASOPHIL % 0.3 % (0.0-0.4); Basophil (Absolute #) 0.02 (0-0.4); Eosinophil % 1.5 % (0.00-5.0); Granulocyte Absolute (ANC) 3.88 (1.4-6.9); Granulocytes % 56.8 % (36.0-66.0); Hematocrit 44.3 % (42-50); Hemoglobin 14.7 gm/dl (12.5-18.0); Lymphocyte (Absolute #) 2.14 (1.0-4.6); Lymphocytes % 31.3 % (24.0-44.0); Mean Cell Volume 90.6 fl (78-100); Mean Corpuscular Hemoglobin 30.1 pg (26-32); Mean Corpuscular Hgb Concent. 33.2 g/dl (32-36); Mean Platelet Volume 10.8 fl (6-9.5); Monocyte (Absolute #) 0.69 (0.0-1.3); Monocytes % 10.1 % (0.0-12.0); Platelet Count 203 K/mm3 (150-450); Red Blood Count 4.89 M/mm3 (4.1-5.6); Red Cell Distribution Width 13.8 % (11.5-14.0); White Blood Count 6.8 K/mm3 (4.0-10.5)
[2019-04-28 08:12] LABS: INR 0.94 (0.8-3.0); PROTIME 10.9 SECONDS (8.83-12.87)
[2019-04-28 08:27] LABS: ALBUMIN 4.1 g/dL (3.5-5.0); ALKALINE PHOSPHATASE 50 U/L (38-126); ANION GAP 15.7 MEQ/L (5-15); BLOOD UREA NITROGEN 16 mg/dL (9-20); CHLORIDE 105 mmol/L (98-107); Calcium 9.5 mg/dL (8.4-10.2); Carbon Dioxide 25 mmol/L (22-30); Creatinine 1 0.63 mg/dL (0.66-1.25); Glucose 147 mg/dL (74-106); NT PRO BNP < 11.1 pg/mL (0-450); Potassium 3.7 mmol/L (3.5-5.1); SGOT/AST 36 U/L (17-59); SGPT/ALT 42 U/L (0-50); SODIUM 142 mmol/L (137-145); Total Protein 7.4 g/dL (6.3-8.2)
--- NOTE | 2019-04-28 09:34 | XRAY ---
Indication: Short of breath and neck pain. Elevated d-dimer. Multiple contiguous axial images obtained through the chest using 100 cc Isovue 370 contrast and PE protocol. Comparison: None There is suboptimal opacification of the pulmonary arteries limiting evaluation for pulmonary embolus in the distal lobar and segmental branches. No large central pulmonary embolus. Heart is not enlarged. Aorta is normal in course and caliber. No pathologic mediastinal/hilar lymphadenopathy. Small hiatal hernia. Lungs inflated and clear. Bony thorax intact. Limited upper abdomen demonstrates diffuse fatty liver. Impression: 1. Pulmonary embolus evaluation limited by suboptimal contrast opacification. No large central pulmonary embolus. 2. Incidental fatty liver and small hiatal hernia. 3. Remaining CT chest with contrast exam is negative. CT DI 28.13
--- NOTE | 2019-04-28 09:34 | XRAY ---
Indication: Short of breath. Comparison: June 25, 2017. Portable apical lordotic chest again demonstrates normal heart, lungs, and bony thorax.
[2019-04-28 10:14] VITALS: BP 136/95
== END 2019-04-28 10:14 | disposition home or self-care (01) ==
LOC: ED 07:37
DX: R06.02 Shortness of breath (principal); I10 Essential (primary) hypertension; K21.9 Gastro-esophageal reflux disease without esophagitis
CPT/HCPCS: 36000; 36415; 71045; 71260; 80053; 83880; 84484; 85025; 85379; 85610; 93005; 93041; 99284

== ENCOUNTER 2019-08-07 17:17 | Emergency (ER) | payer OTHER ==
--- NOTE | 2019-08-07 17:47 | ERPHSYRPT ---
- History of Present Illness Time Seen by Provider: 08/07/19 17:30 Source: patient, family Exam Limitations: no limitations Patient Subjective Stated Complaint: pt here to be checked out , he states hes parents thinks he is being mean to hes mom and sister, punching craft, and honking horn. pt is a poor historian,pt denies wanting to harm self or others, Triage Nursing Assessment: pt alert, resp easy , skin w/d/p, moves all ext well , walked in, Physician History: Patient has a long-standing mental illness history who has become increasingly more aggressive towards his family, culminating with patient stating his car all evening of 08/06/2019 incontinence warned that he was angry at his parents. Patient has been admitted in the past for psychiatric issues. the patient's parents are very concerned the patient is worsening and they're concerned for their safety as well as the safety for himself. Patient denies any active homicidal or suicidal ideation at this visit. Timing/Duration: week(s) (2) Severity of Symptoms-Max: severe Severity of Symptoms-Current: severe Context related to: parent Suicidal thoughts: other (no thoughts) Associated Symptoms: angry, agitated, hostile, No anxiety, No confused, No depressed, No frustrated, No hallucinating, No impaired concentration, No ingestion, No injury, No insomnia, No paranoid, No suicidal ideation Previous symptoms: same symptoms as today (patient has been hospitalized in the past once for psychiatric issues and sees counselors at [facility]) Allergies/Adverse Reactions: No Known Drug Allergies Allergy (Verified 08/07/19 17:23) Home Medications: Lurasidone HCl [Latuda] 40 mg PO DAILY 04/28/19 [History] Phentermine HCl [Adipex-P] 37.5 mg PO DAILY 04/28/19 [History] Buspirone HCl [Buspar] 5 mg DAILY 08/07/19 [History] Hx Tetanus, Diphtheria Vaccination/Date Given: Yes Hx Influenza Vaccination/Date Given: No Hx Pneumococcal Vaccination/Date Given: No Immunizations Up to Date: Yes - Past Medical History Pertinent Past Medical History: Yes Neurological History: No Pertinent History, Other ENT History: No Pertinent History Cardiac History: Hypertension Respiratory History: No Pertinent History Endocrine Medical History: No Pertinent History Musculoskeletal History: No Pertinent History GI Medical History: GERD History: No Pertinent History Psycho-Social History: Anxiety, Depression, Other Male Reproductive Disorders: No Pertinent History Other Medical History: PSYCH HX - Past Surgical History Past Surgical History: No Neuro Surgical History: No Pertinent History Cardiac: No Pertinent History Respiratory: No Pertinent History Gastrointestinal: No Pertinent History Genitourinary: No Pertinent History Musculoskeletal: Other Male Surgical History: No Pertinent History Other Surgical History: pt states he had thumb surgery when he was a baby. - Social History Smoking Status: Never smoker Exposure to second hand smoke: No Drug Use: none Patient Lives Alone: No - Review of Systems Constitutional: No Fever, No Chills Eyes: No Eye Pain, No Photophobia, No Vision Changes Ears, Nose, & Throat: No Nose Pain, No Nose Congestion, No Throat Pain, No Throat Swelling, No Hoarse Respiratory: No Cough, No Dyspnea Cardiac: No Chest Pain, No Edema, No Syncope Abdominal/Gastrointestinal: No Abdominal Pain, No Nausea, No Vomiting, No Diarrhea Genitourinary Symptoms: No Dysuria, No Hematuria, No Flank Pain Musculoskeletal: No Back Pain, No Neck Pain, No Myalgias Skin: No Rash Neurological: No Dizziness, No Focal Weakness, No Sensory Changes Psychological: Emotional Lability, Mood Changes, No Alcohol Abuse, No Drug Abuse , No Suicidal Ideations, No Homicidal Ideations, No Hallucinations Endocrine: No Polyuria, No Excessive Sweating Hematologic/Lymphatic: No Easy Bleeding, No Easy Bruising All Other Systems: Reviewed and Negative - Nursing Vital Signs Nursing Vital Signs: Initial Vital Signs Temperature 97.2 F 08/07/19 17:24 Pulse Rate 105 H 08/07/19 17:24 Respiratory Rate 16 08/07/19 17:24 Blood Pressure 156/100 08/07/19 17:24 O2 Sat by Pulse Oximetry 96 08/07/19 17:24 Pain Scale Pain Intensity 0 - Physical Exam General Appearance: no apparent distress Eyes, Ears, Nose, Throat Exam: normal ENT inspection, moist mucous membranes Neck Exam: normal inspection, non-tender, supple Respiratory Exam: normal breath sounds, lungs clear, No respiratory distress Cardiovascular Exam: regular rate/rhythm, No edema Gastrointestinal/Abdominal Exam: soft, No tenderness, No distention Extremities Exam: normal inspection, normal range of motion, No evidence of injury, No edema Current Suicidality: denies suicide plan Neurological Exam: alert, customer service sales consultant II-XII nml as tested, oriented x 3 Skin Exam: normal color, warm, dry, No rash SpO2: 96 - Course Nursing assessment & vital signs reviewed: Yes EKG Interpreted by Me: RATE (97), Sinus Rhythm, NORMAL AXIS, NORMAL INTERVALS, NORMAL QRS, NORMAL ST-T, Other (negative for any acute changes in comparison to EKG from 04/28/2019) Ordered Tests: Active Orders 24 hr Category Date Time Status Manual Writer STAT Care 08/07/19 17:40 Active EKG-ER Only STAT Care 08/07/19 17:39 Active ACETAMINOPHEN Stat Lab 08/07/19 18:12 Completed CBC W DIFF Stat Lab 08/07/19 18:12 Completed CMP Stat Lab 08/07/19 18:12 Completed ETHYL ALCOHOL Stat Lab 08/07/19 18:12 Completed SALICYLATE Stat Lab 08/07/19 18:12 Completed TSH [TSH, 3RD Generation] Stat Lab 08/07/19 18:12 Completed UA W/RFX UR CULTURE Stat Lab 08/07/19 18:45 Completed Urine Triage Profile Stat Lab 08/07/19 18:45 Completed Lab/Rad Data: Laboratory Result Diagrams 08/07/19 18:12 08/07/19 18:12 Laboratory Results 08/07/19 08/07/19 08/07/19 Range/Units 18:45 18:45 18:12 WBC (4.0-10.5) K/mm3 RBC (4.1-5.6) M/mm3 Hgb (12.5-18.0) gm/dl Hct (42-50) % MCV (78-100) fl MCH (26-32) pg MCHC (32-36) g/dl RDW (11.5-14.0) % Plt Count (150-450) K/mm3 MPV (6-9.5) fl Gran % (36.0-66.0) % Eos # (Auto) (0-0.5) Absolute Lymphs (auto) (1.0-4.6) Absolute Monos (auto) (0.0-1.3) Lymphocytes % (24.0-44.0) % Monocytes % (0.0-12.0) % Eosinophils % (0.00-5.0) % Basophils % (0.0-0.4) % Absolute Granulocytes (1.4-6.9) Basophils # (0-0.4) Sodium (137-145) mmol/L Potassium (3.5-5.1) mmol/L Chloride (98-107) mmol/L Carbon Dioxide (22-30) mmol/L Anion Gap (5-15) MEQ/L BUN (9-20) mg/dL Creatinine (0.66-1.25) mg/dL Estimated GFR ML/MIN Glucose (74-106) mg/dL Calcium (8.4-10.2) mg/dL Total Bilirubin (0.2-1.3) mg/dL AST (17-59) U/L ALT (0-50) U/L Alkaline Phosphatase (38-126) U/L Serum Total Protein (6.3-8.2) g/dL Albumin (3.5-5.0) g/dL TSH 3rd Generation 2.490 (0.47-4.68) mIU/L Urine Color YELLOW (YELLOW) Urine Appearance CLEAR (CLEAR) Urine pH 5.0 (5-6) Ur Specific Bradford 1.024 (1.005-1.025) Urine Protein NEGATIVE (Negative) Urine Ketones NEGATIVE (NEGATIVE) Urine Blood NEGATIVE (0-5) Waldo/ul Urine Nitrite NEGATIVE (NEGATIVE) Urine Bilirubin NEGATIVE (NEGATIVE) Urine Urobilinogen NEGATIVE (0-1) mg/dL Ur Leukocyte Esterase NEGATIVE (NEGATIVE) Urine WBC (Auto) NONE (0-5) /HPF Urine RBC (Auto) NONE (0-2) /HPF U Epithel Cells (Auto) NONE (FEW) /HPF Urine Bacteria (Auto) NONE (NEGATIVE) /HPF Urine Mucus (Auto) SLIGHT (NEGATIVE) /HPF Urine Culture Reflexed NO (NO) Urine Glucose NEGATIVE (NEGATIVE) mg/dL Salicylates (2-20) mg/dL Urine Opiates Level NEGATIVE (NEGATIVE) Ur Methadone NEGATIVE (NEGATIVE) Acetaminophen (10-30) ug/ml Urine Barbiturates NEGATIVE (NEGATIVE) Ur Phencyclidine (PCP) NEGATIVE (NEGATIVE) Urine Amphetamine NEGATIVE (NEGATIVE) U Benzodiazepine Level NEGATIVE (NEGATIVE) Urine Cocaine NEGATIVE (NEGATIVE) Urine Marijuana (THC) NEGATIVE (NEGATIVE) Ethyl Alcohol (0-10) mg/dL 08/07/19 08/07/19 Range/Units 18:12 18:12 WBC 8.5 (4.0-10.5) K/mm3 RBC 5.10 (4.1-5.6) M/mm3 Hgb 15.3 (12.5-18.0) gm/dl Hct 46.0 (42-50) % MCV 90.2 (78-100) fl MCH 30.0 (26-32) pg MCHC 33.3 (32-36) g/dl RDW 13.5 (11.5-14.0) % Plt Count 240 (150-450) K/mm3 MPV 10.5 H (6-9.5) fl Gran % 65.3 (36.0-66.0) % Eos # (Auto) 0.09 (0-0.5) Absolute Lymphs (auto) 2.08 (1.0-4.6) Absolute Monos (auto) 0.74 (0.0-1.3) Lymphocytes % 24.6 (24.0-44.0) % Monocytes % 8.8 (0.0-12.0) % Eosinophils % 1.1 (0.00-5.0) % Basophils % 0.2 (0.0-0.4) % Absolute Granulocytes 5.52 (1.4-6.9) Basophils # 0.02 (0-0.4) Sodium 141 (137-145) mmol/L Potassium 3.7 (3.5-5.1) mmol/L Chloride 108 H (98-107) mmol/L Carbon Dioxide 22 (22-30) mmol/L Anion Gap 14.7 (5-15) MEQ/L BUN 15 (9-20) mg/dL Creatinine 0.72 (0.66-1.25) mg/dL Estimated GFR > 60.0 ML/MIN Glucose 109 H (74-106) mg/dL Calcium 9.5 (8.4-10.2) mg/dL Total Bilirubin 0.40 (0.2-1.3) mg/dL AST 33 (17-59) U/L ALT 37 (0-50) U/L Alkaline Phosphatase 53 (38-126) U/L Serum Total Protein 7.7 (6.3-8.2) g/dL Albumin 4.5 (3.5-5.0) g/dL TSH 3rd Generation (0.47-4.68) mIU/L Urine Color (YELLOW) Urine Appearance (CLEAR) Urine pH (5-6) Ur Specific Bradford (1.005-1.025) Urine Protein (Negative) Urine Ketones (NEGATIVE) Urine Blood (0-5) Waldo/ul Urine Nitrite (NEGATIVE) Urine Bilirubin (NEGATIVE) Urine Urobilinogen (0-1) mg/dL Ur Leukocyte Esterase (NEGATIVE) Urine WBC (Auto) (0-5) /HPF Urine RBC (Auto) (0-2) /HPF U Epithel Cells (Auto) (FEW) /HPF Urine Bacteria (Auto) (NEGATIVE) /HPF Urine Mucus (Auto) (NEGATIVE) /HPF Urine Culture Reflexed (NO) Urine Glucose (NEGATIVE) mg/dL Salicylates < 1.0 L (2-20) mg/dL Urine Opiates Level (NEGATIVE) Ur Methadone (NEGATIVE) Acetaminophen < 10 L (10-30) ug/ml Urine Barbiturates (NEGATIVE) Ur Phencyclidine (PCP) (NEGATIVE) Urine Amphetamine (NEGATIVE) U Benzodiazepine Level (NEGATIVE) Urine Cocaine (NEGATIVE) Urine Marijuana (THC) (NEGATIVE) Ethyl Alcohol < 10 (0-10) mg/dL - Progress Progress: unchanged Progress Note: 08/07/19 19:30 Patient is medically cleared at this time. We will have [facility] evaluate the patient for inpatient psychiatric admission. 08/07/19 21:25 Jessica Kelley from [facility] states patient is not a candidate for inpatient psychiatric admission at this time and the patient is to followup as an outpatient in the morning of 08/08/2019 and [place], [place] office. 08/07/19 21:31 patient denies any auditory or visual hallucinations, suicidal ideations, homicidal ideations, scattered thoughts, anxiety, shortness of breath, chest pain, or palpitations at this time. Counseled pt/family regarding: lab results, diagnosis, need for follow-up - Departure Departure Disposition: Home Clinical Impression: Outbursts of anger Hypertension Qualifiers: Hypertension type: essential hypertension Qualified Code(s): I10 - Essential ( primary) hypertension Condition: Good Critical Care Time: No Referrals: SEPIDEH ALLAN [Primary Care Provider] - 08/08/19 (Follow-up with [facility] on 08/07/2019 in the [place], [place] office) Instructions: Intermittent Explosive Disorder, Bipolar Disorder (DC), High Blood Pressure (DC) Additional Instructions: Make certain to follow-up with [facility] on 08/08/2019. Return immediately back to the emergency department if any worsening thoughts, anger, mood swings, depression, anxiety or any other concerning signs or symptoms that were not present on today's emergency department for immediate reevaluation in the emergency department.
[2019-08-07 18:15] LABS: BASOPHIL % 0.2 % (0.0-0.4); Basophil (Absolute #) 0.02 (0-0.4); Eosinophil % 1.1 % (0.00-5.0); Eosinophil (Absolute #) 0.09 (0-0.5); Granulocyte Absolute (ANC) 5.52 (1.4-6.9); Granulocytes % 65.3 % (36.0-66.0); Hemoglobin 15.3 gm/dl (12.5-18.0); Lymphocyte (Absolute #) 2.08 (1.0-4.6); Lymphocytes % 24.6 % (24.0-44.0); Mean Cell Volume 90.2 fl (78-100); Mean Corpuscular Hgb Concent. 33.3 g/dl (32-36); Mean Platelet Volume 10.5 fl (6-9.5); Monocyte (Absolute #) 0.74 (0.0-1.3); Monocytes % 8.8 % (0.0-12.0); Platelet Count 240 K/mm3 (150-450); Red Cell Distribution Width 13.5 % (11.5-14.0); White Blood Count 8.5 K/mm3 (4.0-10.5)
[2019-08-07 18:29] LABS: ALBUMIN 4.5 g/dL (3.5-5.0); ALKALINE PHOSPHATASE 53 U/L (38-126); ANION GAP 14.7 MEQ/L (5-15); BLOOD UREA NITROGEN 15 mg/dL (9-20); CHLORIDE 108 mmol/L (98-107); Calcium 9.5 mg/dL (8.4-10.2); Carbon Dioxide 22 mmol/L (22-30); Creatinine 1 0.72 mg/dL (0.66-1.25); Glucose 109 mg/dL (74-106); Potassium 3.7 mmol/L (3.5-5.1); SGOT/AST 33 U/L (17-59); SGPT/ALT 37 U/L (0-50); SODIUM 141 mmol/L (137-145); Total Protein 7.7 g/dL (6.3-8.2)
[2019-08-07 18:33] LABS: ACETAMINOPHEN < 10 ug/ml (10-30); ETHYL ALCOHOL < 10 mg/dL (0-10); SALICYLATE < 1.0 mg/dL (2-20)
[2019-08-07 18:57] LABS: Appearance CLEAR (CLEAR); Bilirubin NEGATIVE (NEGATIVE); Blood NEGATIVE Ery/ul (0-5); Glucose NEGATIVE (NEGATIVE); Ketones NEGATIVE (NEGATIVE); Leukocyte Esterase NEGATIVE (NEGATIVE); Mucus SLIGHT /HPF (NEGATIVE); Nitrite NEGATIVE (NEGATIVE); Protein,Urine Dip NEGATIVE (Negative); Specific Gravity 1.024 (1.005-1.025); Urobilinogen NEGATIVE mg/dL (0-1)
[2019-08-07 19:12] LABS: Amphetamine,Urine NEGATIVE (NEGATIVE); Barbiturate,Urine NEGATIVE (NEGATIVE); Benzodiazepine,Urine NEGATIVE (NEGATIVE); Cocaine,Urine NEGATIVE (NEGATIVE); Methadone,Urine NEGATIVE (NEGATIVE); Opiate,Urine NEGATIVE (NEGATIVE); PCP,Urine NEGATIVE (NEGATIVE); THC,Urine NEGATIVE (NEGATIVE)
[2019-08-07 21:42] VITALS: O2SAT 96
[2019-08-07 21:48] VITALS: BP 126/97; PULSE 88
== END 2019-08-07 21:49 | disposition home or self-care (01) ==
LOC: ED 17:17
DX: R45.4 Irritability and anger (principal); I10 Essential (primary) hypertension
CPT/HCPCS: 36415; 80053; 80307; 81001; 84443; 85025; 93005; 93041; 99284; G0480; G0481

== ENCOUNTER 2019-09-08 05:47 | Day surgery (SDC) | payer OTHER ==
[2019-09-08] MEDS ORDERED: Lactated Ringers 1,000 ML IV SCH (06:30)
[2019-09-08] MEDS ORDERED: Lactated Ringers 1,000 ML IV ONE (07:24)
[2019-09-08] MEDS ORDERED: DIPRIVAN 200 MG/20 ML IV ONE ×2 (08:07→08:10)
[2019-09-08] MEDS ORDERED: Ketamine HCl 50 MG/ML ONE (08:07)
[2019-09-08] MEDS ORDERED: APRESOLINE 20 MG/ML INJ ONE (08:19)
[2019-09-08 09:19] VITALS: BP 167/91; PULSE 90; O2SAT 97
--- NOTE | 2019-09-08 11:04 | OP ---
SURGERY DATE/TIME: 09/08/2019 0810 PREOPERATIVE DIAGNOSIS: Rectal bleeding. POSTOPERATIVE DIAGNOSIS: Sigmoid colon polyp. PROCEDURE: Colonoscopy with cold forceps biopsy. SURGEON: Dr. Torres. ANESTHESIA: MAC. Medications given by anesthesia department. HISTORY: The patient is a 29 year-old white male presenting now for colonoscopic evaluation. He reports that he has been having intermittent rectal bleeding bright red in nature mixed in with his stools. The patient was felt the need to have endoscopic evaluation. He was appraised of the risks of the procedure including the risk of perforation, phlebitis, untoward reaction to medication, bleeding and missed lesions. The patient verbalized his understanding and desired to have the procedure performed. DESCRIPTION OF PROCEDURE: The patient was given the medications by the anesthesia department. He had continuous pulse oximetry, ECG monitoring, intermittent blood pressure monitoring and tidal CO2 monitoring during the examination. He was placed in the left lateral decubitus position. A digital rectal examination was performed and revealed normal anal sphincter tone, no masses, no hemorrhoids, normal prostate. The flexible Olympus pediatric colonoscope was used to intubate the rectum. A view of the colon was developed sequentially to the cecum. The patient did have a fair amount of liquid stool to the left. They had given him cleansing enemas before the procedure. It was noted in the sigmoid colon a small polyp measuring approximately 0.7 cm in size this was destroyed using three passes of cold forceps biopsy to completely destroy the lesion. No other mucosal lesions being encountered the scope was removed from the patient who tolerated the procedure well and sent back to OP recovery in good condition. The prep was noted to be fair to poor.
== END 2019-09-08 09:32 | disposition home or self-care (01) ==
LOC: SDC 05:47
PROVIDERS: ATTEND Family Medicine
DX: D12.5 Benign neoplasm of sigmoid colon (principal); I10 Essential (primary) hypertension; Z79.899 Other long term (current) drug therapy
CPT/HCPCS: 88305; J0360; J2704

== ENCOUNTER 2019-10-10 15:32 | Emergency (ER) | payer OTHER ==
--- NOTE | 2019-10-10 15:48 | ERPHSYRPT ---
- History of Present Illness Time Seen by Provider: 10/10/19 15:40 Source: patient Exam Limitations: no limitations Physician History: 29 y/o morbidly obese with h/o htn on no medications for it, presents with a concern of high bp and palpitations at home, pts bp was 130's/90. pts father felt pts pulse was irregular at home. pt denies cp and denies soa. pt denies abd pain. EKG dated 04/28/19 hr 86, nsr, nl axis Timing/Duration: today Severity: mild Modifying Factors: Improves With: nothing Associated Symptoms: No nausea, No vomiting, No abdominal pain, No shortness of breath, No chest pain Allergies/Adverse Reactions: No Known Drug Allergies Allergy (Verified 09/08/19 06:27) Home Medications: Lurasidone HCl [Latuda] 40 mg PO DAILY 04/28/19 [History] Phentermine HCl [Adipex-P] 37.5 mg PO DAILY 04/28/19 [History] Buspirone HCl [Buspar] 5 mg DAILY 08/07/19 [History] Cholecalciferol (Vitamin D3) [Vitamin D3] 1,000 unit PO DAILY 09/01/19 [History] Hx Tetanus, Diphtheria Vaccination/Date Given: Yes Hx Influenza Vaccination/Date Given: No Hx Pneumococcal Vaccination/Date Given: No - Review of Systems Constitutional: No Symptoms Eyes: No Symptoms Ears, Nose, & Throat: No Symptoms Respiratory: No Symptoms Cardiac: Palpitations, No Chest Pain, No Syncope Abdominal/Gastrointestinal: No Symptoms, No Abdominal Pain, No Nausea, No Vomiting Genitourinary Symptoms: No Symptoms Musculoskeletal: No Symptoms Skin: No Symptoms Neurological: No Symptoms Psychological: No Symptoms Endocrine: No Symptoms Hematologic/Lymphatic: No Symptoms Immunological/Allergic: No Symptoms All Other Systems: Reviewed and Negative - Past Medical History Pertinent Past Medical History: Yes Neurological History: No Pertinent History ENT History: No Pertinent History Cardiac History: Hypertension Respiratory History: No Pertinent History Endocrine Medical History: No Pertinent History Musculoskeletal History: No Pertinent History GI Medical History: GERD History: No Pertinent History Psycho-Social History: Anxiety, Depression, Other Male Reproductive Disorders: No Pertinent History Other Medical History: PSYCH HX - Past Surgical History Past Surgical History: No Neuro Surgical History: No Pertinent History Cardiac: No Pertinent History Respiratory: No Pertinent History Gastrointestinal: No Pertinent History Genitourinary: No Pertinent History Musculoskeletal: Other Male Surgical History: No Pertinent History Other Surgical History: pt states he had thumb surgery when he was a baby. - Social History Smoking Status: Never smoker Exposure to second hand smoke: No Drug Use: none Patient Lives Alone: No - Nursing Vital Signs Nursing Vital Signs: Initial Vital Signs Temperature 97.9 F 10/10/19 15:37 Pulse Rate 95 H 10/10/19 15:37 Respiratory Rate 18 10/10/19 15:37 Blood Pressure 117/71 10/10/19 15:37 O2 Sat by Pulse Oximetry 97 10/10/19 15:37 Pain Scale Pain Intensity 0 - Physical Exam General Appearance: no apparent distress, alert, anxiety Eye Exam: PERRL/EOMI, eyes nml inspection Ears, Nose, Throat Exam: normal ENT inspection, moist mucous membranes Neck Exam: normal inspection, non-tender, supple, full range of motion Respiratory Exam: normal breath sounds, lungs clear, airway intact, No chest tenderness, No respiratory distress Cardiovascular Exam: regular rate/rhythm, normal heart sounds, normal peripheral pulses Gastrointestinal/Abdomen Exam: soft, normal bowel sounds, No tenderness Rectal Exam: not done Back Exam: normal inspection, normal range of motion, No CVA tenderness, No vertebral tenderness Extremity Exam: normal inspection, normal range of motion, pelvis stable Neurologic Exam: alert, oriented x 3, cooperative, 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 ) Ordered Tests: Active Orders 24 hr Category Date Time Status Humidifier Attendant STAT Care 10/10/19 15:49 Active EKG-ER Only STAT Care 10/10/19 15:48 Active IV Insertion STAT Care 10/10/19 15:48 Active Pulse Oximetry (ED) STAT Care 10/10/19 15:48 Active CBC W DIFF Stat Lab 10/10/19 16:01 Completed CMP Stat Lab 10/10/19 16:01 Completed MAGNESIUM Stat Lab 10/10/19 16:01 Completed NT PRO BNP Stat Lab 10/10/19 16:01 Completed TROPONIN Q3H Lab 10/10/19 16:01 Completed TROPONIN Q3H Lab 10/10/19 19:00 Ordered TROPONIN Q3H Lab 10/10/19 22:00 Ordered TROPONIN Q3H Lab 10/11/19 01:00 Ordered TROPONIN Q3H Lab 10/11/19 04:00 Ordered Lab/Rad Data: Laboratory Result Diagrams 10/10/19 16:01 10/10/19 16:01 Laboratory Results 10/10/19 10/10/19 10/10/19 Range/Units 16:01 16:01 16:01 WBC 7.9 (4.0-10.5) K/mm3 RBC 5.16 (4.1-5.6) M/mm3 Hgb 15.3 (12.5-18.0) gm/dl Hct 46.2 (42-50) % MCV 89.5 (78-100) fl MCH 29.7 (26-32) pg MCHC 33.1 (32-36) g/dl RDW 13.7 (11.5-14.0) % Plt Count 229 (150-450) K/mm3 MPV 10.8 H (6-9.5) fl Gran % 59.6 (36.0-66.0) % Eos # (Auto) 0.09 (0-0.5) Absolute Lymphs (auto) 2.24 (1.0-4.6) Absolute Monos (auto) 0.86 (0.0-1.3) Lymphocytes % 28.2 (24.0-44.0) % Monocytes % 10.8 (0.0-12.0) % Eosinophils % 1.1 (0.00-5.0) % Basophils % 0.3 (0.0-0.4) % Absolute Granulocytes 4.73 (1.4-6.9) Basophils # 0.02 (0-0.4) Sodium 142 (137-145) mmol/L Potassium 4.2 (3.5-5.1) mmol/L Chloride 104 (98-107) mmol/L Carbon Dioxide 28 (22-30) mmol/L Anion Gap 14.6 (5-15) MEQ/L BUN 11 (9-20) mg/dL Creatinine 0.62 L (0.66-1.25) mg/dL Estimated GFR > 60.0 ML/MIN Glucose 107 H (74-106) mg/dL Calcium 10.3 H (8.4-10.2) mg/dL Magnesium 2.0 (1.6-2.3) mg/dL Total Bilirubin 0.50 (0.2-1.3) mg/dL AST 36 (17-59) U/L ALT 46 (0-50) U/L Alkaline Phosphatase 41 (38-126) U/L Troponin I < 0.012 (0.000-0.034) ng/mL NT-Pro-B Natriuret Pep 12.3 (0-450) pg/mL Serum Total Protein 8.0 (6.3-8.2) g/dL Albumin 4.5 (3.5-5.0) g/dL - Progress Progress: unchanged Counseled pt/family regarding: lab results, diagnosis, need for follow-up - Departure Departure Disposition: Home Clinical Impression: Palpitations Condition: Stable Critical Care Time: No Referrals: SEPIDEH ALLAN [Primary Care Provider] - Additional Instructions: follow up with primary doctor for further management. take your medications as prescribed
[2019-10-10 16:04] LABS: Absolute Neutrophil Ct (ANC) 4.73 (1.4-6.9); BASOPHIL % 0.3 % (0.0-0.4); Basophil (Absolute #) 0.02 (0-0.4); Eosinophil % 1.1 % (0.00-5.0); Eosinophil (Absolute #) 0.09 (0-0.5); Hematocrit 46.2 % (42-50); Hemoglobin 15.3 gm/dl (12.5-18.0); Lymphocyte (Absolute #) 2.24 (1.0-4.6); Lymphocytes % 28.2 % (24.0-44.0); Mean Cell Volume 89.5 fl (78-100); Mean Corpuscular Hemoglobin 29.7 pg (26-32); Mean Corpuscular Hgb Concent. 33.1 g/dl (32-36); Mean Platelet Volume 10.8 fl (6-9.5); Monocyte (Absolute #) 0.86 (0.0-1.3); Monocytes % 10.8 % (0.0-12.0); Neutrophil % 59.6 % (36.0-66.0); Platelet Count 229 K/mm3 (150-450); Red Blood Count 5.16 M/mm3 (4.1-5.6); Red Cell Distribution Width 13.7 % (11.5-14.0); White Blood Count 7.9 K/mm3 (4.0-10.5)
[2019-10-10 16:24] LABS: ALBUMIN 4.5 g/dL (3.5-5.0); ALKALINE PHOSPHATASE 41 U/L (38-126); ANION GAP 14.6 MEQ/L (5-15); BLOOD UREA NITROGEN 11 mg/dL (9-20); CHLORIDE 104 mmol/L (98-107); Calcium 10.3 mg/dL (8.4-10.2); Carbon Dioxide 28 mmol/L (22-30); Creatinine 1 0.62 mg/dL (0.66-1.25); Glucose 107 mg/dL (74-106); NT PRO BNP 12.3 pg/mL (0-450); Potassium 4.2 mmol/L (3.5-5.1); SGOT/AST 36 U/L (17-59); SGPT/ALT 46 U/L (0-50); SODIUM 142 mmol/L (137-145)
[2019-10-10 16:32] VITALS: BP 113/63; PULSE 82; O2SAT 96
== END 2019-10-10 16:53 | disposition home or self-care (01) ==
LOC: ED 15:32
DX: R00.2 Palpitations (principal)
CPT/HCPCS: 36000; 36415; 80053; 83735; 83880; 84484; 85025; 93005; 93041; 94760; 99284

== ENCOUNTER 2019-12-16 11:17 | Emergency (ER) | payer OTHER ==
--- NOTE | 2019-12-16 11:24 | ERPHSYRPT ---
- History of Present Illness Time Seen by Provider: 12/16/19 11:24 Historian: patient Exam Limitations: no limitations Physician History: 29 y/o morbidly obese white male presents with central substernal cp without radiation. pts recent cta chest was negative for any acute process. similar episodes in past. pain onset at 0930 this am. has mild assoc sob. no abd pain. pt has h/o htn, anxiety and depression Timing/Duration: today Activities at Onset: none Quality: aching Location: substernal, central Chest Pain Radiation: no radiation Severity of Pain-Max: mild Severity of Pain-Current: none Modifying Factors: Improves With: nothing Associated Symptoms: shortness of breath (mild ) Nitro Today/Relief: no nitro taken today Aspirin Treatment Today: no aspirin today Allergies/Adverse Reactions: No Known Drug Allergies Allergy (Verified 12/16/19 11:27) Home Medications: Lurasidone HCl [Latuda] 40 mg PO DAILY 04/28/19 [History] Buspirone HCl [Buspar] 5 mg DAILY 08/07/19 [History] Cholecalciferol (Vitamin D3) [Vitamin D3] 1,000 unit PO DAILY 09/01/19 [History] Benazepril HCl 10 mg DAILY 12/16/19 [History] Carvedilol 12.5 mg [Coreg 12.5 mg] 12.5 mg DAILY 12/16/19 [History] Omeprazole 20 mg DAILY 12/16/19 [History] Simvastatin 10 mg DAILY 12/16/19 [History] Hx Tetanus, Diphtheria Vaccination/Date Given: Yes Hx Influenza Vaccination/Date Given: No Hx Pneumococcal Vaccination/Date Given: No - Review of Systems Constitutional: No Symptoms Eyes: No Symptoms Ears, Nose, & Throat: No Symptoms Respiratory: No Symptoms Cardiac: Chest Pain Abdominal/Gastrointestinal: No Symptoms Genitourinary Symptoms: No Symptoms Musculoskeletal: No Symptoms Skin: No Symptoms Neurological: No Symptoms Psychological: No Symptoms Endocrine: No Symptoms Hematologic/Lymphatic: No Symptoms Immunological/Allergic: No Symptoms All Other Systems: Reviewed and Negative - Past Medical History Pertinent Past Medical History: Yes Neurological History: No Pertinent History ENT History: No Pertinent History Cardiac History: Hypertension Respiratory History: No Pertinent History Endocrine Medical History: No Pertinent History Musculoskeletal History: No Pertinent History GI Medical History: GERD History: No Pertinent History Psycho-Social History: Anxiety, Depression, Other Male Reproductive Disorders: No Pertinent History Other Medical History: PSYCH HX - Past Surgical History Past Surgical History: No Neuro Surgical History: No Pertinent History Cardiac: No Pertinent History Respiratory: No Pertinent History Gastrointestinal: No Pertinent History Genitourinary: No Pertinent History Musculoskeletal: Other Male Surgical History: No Pertinent History Other Surgical History: pt states he had thumb surgery when he was a baby. - Social History Smoking Status: Never smoker Exposure to second hand smoke: No Drug Use: none Patient Lives Alone: No - Nursing Vital Signs Nursing Vital Signs: Initial Vital Signs Temperature 98.0 F 12/16/19 11:19 Pulse Rate 70 12/16/19 11:19 Respiratory Rate 16 12/16/19 11:19 Blood Pressure 135/80 12/16/19 11:19 O2 Sat by Pulse Oximetry 95 12/16/19 11:19 Pain Scale Pain Intensity 6 - Physical Exam General Appearance: no apparent distress, alert, anxiety Eye Exam: PERRL/EOMI, eyes nml inspection Ears, Nose, Throat Exam: normal ENT inspection, moist mucous membranes Neck Exam: normal inspection, non-tender, supple, full range of motion Respiratory Exam: normal breath sounds, lungs clear, airway intact, No chest tenderness, No respiratory distress Cardiovascular Exam: regular rate/rhythm, normal heart sounds, normal peripheral pulses Gastrointestinal/Abdomen Exam: soft, normal bowel sounds, No tenderness Rectal Exam: not done Back Exam: normal inspection, normal range of motion, No CVA tenderness, No vertebral tenderness Extremity Exam: normal inspection, normal range of motion, pelvis stable Neurologic Exam: alert, oriented x 3, cooperative, manager access II-XII nml as tested Skin Exam: normal color, warm, dry Lymphatic Exam: No adenopathy SpO2 Interpretation: normal O2 Delivery: Room Air - Course Nursing assessment & vital signs reviewed: Yes EKG Interpreted by Me: RATE (61), Sinus Rhythm, NORMAL AXIS, NORMAL INTERVALS, NORMAL QRS, Other (no change when compared to nl ekg dated 10/10/19) Ordered Tests: Active Orders 24 hr Category Date Time Status Electrical Estimator STAT Care 12/16/19 11:55 Active EKG-ER Only STAT Care 12/16/19 11:54 Active IV Insertion STAT Care 12/16/19 11:54 Active Pulse Oximetry (ED) STAT Care 12/16/19 11:54 Active CHEST 1 VIEW (PORTABLE) Stat Exams 12/16/19 11:55 Completed CBC W DIFF Stat Lab 12/16/19 11:30 Completed CMP Stat Lab 12/16/19 11:30 Completed NT PRO BNP Stat Lab 12/16/19 11:30 Completed TROPONIN Q3H Lab 12/16/19 11:30 Completed TROPONIN Q3H Lab 12/16/19 15:00 Ordered TROPONIN Q3H Lab 12/16/19 18:00 Ordered TROPONIN Q3H Lab 12/16/19 21:00 Ordered TROPONIN Q3H Lab 12/17/19 00:00 Ordered Lab/Rad Data: Laboratory Result Diagrams 12/16/19 11:30 12/16/19 11:30 Laboratory Results 12/16/19 12/16/19 12/16/19 Range/Units 11:30 11:30 11:30 WBC 7.2 (4.0-10.5) K/mm3 RBC 4.95 (4.1-5.6) M/mm3 Hgb 15.1 (12.5-18.0) gm/dl Hct 44.2 (42-50) % MCV 89.3 (78-100) fl MCH 30.5 (26-32) pg MCHC 34.2 (32-36) g/dl RDW 13.4 (11.5-14.0) % Plt Count 205 (150-450) K/mm3 MPV 11.1 H (7.5-11.0) fl Gran % 56.9 (36.0-66.0) % Eos # (Auto) 0.08 (0-0.5) Absolute Lymphs (auto) 2.34 (1.0-4.6) Absolute Monos (auto) 0.66 (0.0-1.3) Lymphocytes % 32.5 (24.0-44.0) % Monocytes % 9.2 (0.0-12.0) % Eosinophils % 1.1 (0.00-5.0) % Basophils % 0.3 (0.0-0.4) % Absolute Granulocytes 4.09 (1.4-6.9) Basophils # 0.02 (0-0.4) Sodium 142 (137-145) mmol/L Potassium 3.8 (3.5-5.1) mmol/L Chloride 106 (98-107) mmol/L Carbon Dioxide 25 (22-30) mmol/L Anion Gap 15.1 H (5-15) MEQ/L BUN 10 (9-20) mg/dL Creatinine 0.68 (0.66-1.25) mg/dL Estimated GFR > 60.0 ML/MIN Glucose 109 H (74-106) mg/dL Calcium 9.2 (8.4-10.2) mg/dL Total Bilirubin 0.30 (0.2-1.3) mg/dL AST 30 (17-59) U/L ALT 40 (0-50) U/L Alkaline Phosphatase 50 (38-126) U/L Troponin I < 0.012 (0.000-0.034) ng/mL NT-Pro-B Natriuret Pep 24.2 (0-450) pg/mL Serum Total Protein 7.2 (6.3-8.2) g/dL Albumin 4.1 (3.5-5.0) g/dL - Progress Progress: improved, re-examined Air Movement: good Progress Note: 12/16/19 12:45 [id number] no acute process Blood Culture(s) Obtained: No Antibiotics given: No Counseled pt/family regarding: lab results, diagnosis, need for follow-up, rad results - Departure Departure Disposition: Home Clinical Impression: Chest pain in adult Condition: Stable Critical Care Time: No Referrals: SEPIDEH ALLAN [Primary Care Provider] - Additional Instructions: 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 take your medications as prescribed.
[2019-12-16 12:03] LABS: Absolute Neutrophil Ct (ANC) 4.09 (1.4-6.9); BASOPHIL % 0.3 % (0.0-0.4); Basophil (Absolute #) 0.02 (0-0.4); Eosinophil % 1.1 % (0.00-5.0); Eosinophil (Absolute #) 0.08 (0-0.5); Hematocrit 44.2 % (42-50); Hemoglobin 15.1 gm/dl (12.5-18.0); Lymphocyte (Absolute #) 2.34 (1.0-4.6); Lymphocytes % 32.5 % (24.0-44.0); Mean Cell Volume 89.3 fl (78-100); Mean Corpuscular Hemoglobin 30.5 pg (26-32); Mean Corpuscular Hgb Concent. 34.2 g/dl (32-36); Mean Platelet Volume 11.1 fl (7.5-11.0); Monocyte (Absolute #) 0.66 (0.0-1.3); Monocytes % 9.2 % (0.0-12.0); Neutrophil % 56.9 % (36.0-66.0); Platelet Count 205 K/mm3 (150-450); Red Blood Count 4.95 M/mm3 (4.1-5.6); Red Cell Distribution Width 13.4 % (11.5-14.0); White Blood Count 7.2 K/mm3 (4.0-10.5)
[2019-12-16 12:24] LABS: ALBUMIN 4.1 g/dL (3.5-5.0); ALKALINE PHOSPHATASE 50 U/L (38-126); ANION GAP 15.1 MEQ/L (5-15); BLOOD UREA NITROGEN 10 mg/dL (9-20); CHLORIDE 106 mmol/L (98-107); Calcium 9.2 mg/dL (8.4-10.2); Carbon Dioxide 25 mmol/L (22-30); Creatinine 1 0.68 mg/dL (0.66-1.25); Glucose 109 mg/dL (74-106); NT PRO BNP 24.2 pg/mL (0-450); Potassium 3.8 mmol/L (3.5-5.1); SGOT/AST 30 U/L (17-59); SGPT/ALT 40 U/L (0-50); SODIUM 142 mmol/L (137-145); Total Protein 7.2 g/dL (6.3-8.2)
--- NOTE | 2019-12-16 12:33 | XRAY ---
Indication: Chest pain. Comparison: April 28, 2019. Portable chest again demonstrates normal heart, lungs, and bony thorax.
[2019-12-16 13:14] VITALS: BP 122/69; PULSE 71; O2SAT 98
== END 2019-12-16 13:18 | disposition home or self-care (01) ==
LOC: ED 11:17
DX: R07.9 Chest pain, unspecified (principal)
CPT/HCPCS: 36000; 36415; 71045; 80053; 83880; 84484; 85025; 93005; 93041; 94760; 99284

== ENCOUNTER 2020-07-15 07:26 | Emergency (ER) | payer OTHER ==
[2020-07-15] MEDS ORDERED: Sodium Chloride 0.9% 1000 ML 1,000 ML IV STA (07:43)
[2020-07-15] MEDS ORDERED: Sodium Chloride 0.9% 1000 ML 1,000 ML ONE (08:08)
--- NOTE | 2020-07-15 08:09 | ERPHSYRPT ---
- History of Present Illness Time Seen by Provider: 07/15/20 07:40 Exam Limitations: no limitations Patient Subjective Stated Complaint: pt reports dark colored, almost black stools for 3 days. pt also reports some diffuse abdominal pain. pt states that he is currently making some adjustments with his provider on his latuda. Triage Nursing Assessment: pt is aox3, appears in no distress, pupils perrl, afebrile, radial pulses strong and equal, cap refill < 3 seconds, abd soft, tender diffusely, bowel sounds normoactive x4, pt skin pink warm dry. Physician History: Patient is a 30-year-old male presents to our ED for evaluation of dark-colored stools. Patient has been experiencing indigestion and has been taking Pepto- Bismol. Patient has been on Pepto-Bismol for 3 days and has also noted dark stools during this timeframe. Patient has been experiencing intermittent generalized abdominal cramping. No nausea or vomiting. No diarrhea. No fever. No rash. Symptoms are mild to moderate in intensity. No specific worsening or improving factors. Patient is otherwise generally healthy. He voices no other complaints at this time. Timing/Duration: day(s) (Days) Activities at Onset: none Quality: cramping Abdominal Pain Onset Location: generalized abdomen Pain Radiation: no radiation Severity of Pain-Max: moderate Severity of Pain-Current: mild Modifying Factors: Improves With: nothing Associated Symptoms: No chest pain, No diaphoresis, No diarrhea, No fever/chills, No fatigue, No headache, No heartburn, No loss of appetite, No nausea, No neck pain, No rash, No shortness of breath, No syncope, No testicular pain, No vomiting Allergies/Adverse Reactions: No Known Drug Allergies Allergy (Verified 07/15/20 07:44) Home Medications: Lurasidone HCl [Latuda] 40 mg PO DAILY 04/28/19 [History] Buspirone HCl [Buspar] 5 mg DAILY 08/07/19 [History] Cholecalciferol (Vitamin D3) [Vitamin D3] 1,000 unit PO DAILY 09/01/19 [History] Benazepril HCl 10 mg DAILY 12/16/19 [History] Carvedilol 12.5 mg [Coreg 12.5 mg] 12.5 mg DAILY 12/16/19 [History] Omeprazole 20 mg DAILY 12/16/19 [History] Simvastatin 10 mg DAILY 12/16/19 [History] Hx Tetanus, Diphtheria Vaccination/Date Given: Yes Hx Influenza Vaccination/Date Given: No Hx Pneumococcal Vaccination/Date Given: No Immunizations Up to Date: Yes Travel Risk - International Travel Have you traveled outside of the country in past 3 weeks: No - Coronavirus Screening Are you exhibiting any of the following symptoms?: No Close contact with a COVID-19 positive Pt in past 14-21 Days: No - Review of Systems Constitutional: No Symptoms, No Fever, No Chills Eyes: No Symptoms Ears, Nose, & Throat: No Symptoms Respiratory: No Symptoms, No Cough, No Dyspnea Cardiac: No Symptoms, No Chest Pain, No Edema, No Syncope Abdominal/Gastrointestinal: No Symptoms, No Abdominal Pain, No Nausea, No Vomiting, No Diarrhea Genitourinary Symptoms: No Symptoms, No Dysuria Musculoskeletal: No Symptoms, No Back Pain, No Neck Pain Skin: No Symptoms, No Rash Neurological: No Symptoms, No Dizziness, No Focal Weakness, No Sensory Changes Psychological: No Symptoms Endocrine: No Symptoms Hematologic/Lymphatic: No Symptoms Immunological/Allergic: No Symptoms All Other Systems: Reviewed and Negative - Past Medical History Pertinent Past Medical History: Yes Neurological History: No Pertinent History ENT History: No Pertinent History Cardiac History: Hypertension Respiratory History: No Pertinent History Endocrine Medical History: No Pertinent History Musculoskeletal History: No Pertinent History GI Medical History: GERD History: No Pertinent History Psycho-Social History: Anxiety, Depression, Other Male Reproductive Disorders: No Pertinent History Other Medical History: PSYCH HX - Past Surgical History Past Surgical History: No Neuro Surgical History: No Pertinent History Cardiac: No Pertinent History Respiratory: No Pertinent History Gastrointestinal: No Pertinent History Genitourinary: No Pertinent History Musculoskeletal: Other Male Surgical History: No Pertinent History Other Surgical History: pt states he had thumb surgery when he was a baby. - Social History Smoking Status: Current every day smoker Exposure to second hand smoke: No Drug Use: none Patient Lives Alone: Yes - Nursing Vital Signs Nursing Vital Signs: Initial Vital Signs Temperature 98.3 F 07/15/20 07:31 Pulse Rate 81 07/15/20 07:31 Respiratory Rate 18 07/15/20 07:31 Blood Pressure 151/97 07/15/20 07:31 O2 Sat by Pulse Oximetry 99 07/15/20 07:31 Pain Scale Pain Intensity 4 - Physical Exam General Appearance: no apparent distress, alert Eye Exam: PERRL/EOMI, eyes nml inspection Ears, Nose, Throat Exam: normal ENT inspection, pharynx normal, moist mucous membranes Neck Exam: normal inspection, non-tender, supple, full range of motion Respiratory Exam: normal breath sounds, lungs clear, No respiratory distress Cardiovascular Exam: regular rate/rhythm, normal heart sounds Gastrointestinal/Abdomen Exam: soft, No tenderness, No mass Back Exam: normal inspection, normal range of motion, No CVA tenderness, No vertebral tenderness Extremity Exam: normal inspection, normal range of motion, pelvis stable Neurologic Exam: alert, oriented x 3, cooperative, normal mood/affect, nml cerebellar function, sensation nml, No motor deficits Skin Exam: normal color, warm, dry SpO2 Interpretation: normal SpO2: 99 O2 Delivery: Room Air - Course Nursing assessment & vital signs reviewed: Yes - CT Exams Abdomen/Pelvis CT Interpretation: Tele-radiologist Report (T reveals diverticulosis, fatty liver, old L1 transverse process fracture, left small fatty inguinal hernia. No acute intra-abdominal pathology.) Ordered Tests: Active Orders 24 hr Category Date Time Status IV Insertion STAT Care 07/15/20 07:43 Active ABDOMEN AND PELVIS W CONTRAST [CT] Stat Exams 07/15/20 08:08 Completed CBC W DIFF Stat Lab 07/15/20 08:20 Completed CMP Stat Lab 07/15/20 08:20 Completed LIPASE Stat Lab 07/15/20 08:20 Completed TROPONIN Q3H Lab 07/15/20 08:20 Completed TROPONIN Q3H Lab 07/15/20 10:45 Ordered TROPONIN Q3H Lab 07/15/20 13:45 Ordered TROPONIN Q3H Lab 07/15/20 16:45 Ordered TROPONIN Q3H Lab 07/15/20 19:45 Ordered UA W/RFX UR CULTURE Stat Lab 07/15/20 08:10 Completed Medication Summary Discontinued Medications Generic Name Dose Route Start Last Admin Trade Name Freq PRN Reason Stop Dose Admin Sodium Chloride 1,000 mls @ 999 mls/hr 07/15/20 07:43 07/15/20 09:30 Sodium Chloride 0.9% 1000 Ml IV 07/15/20 08:43 Infused .Q1H1M STA Infusion Sodium Chloride Confirm 07/15/20 08:08 Sodium Chloride 0.9% 1000 Ml Administered 07/15/20 08:09 Dose 1,000 mls @ ud .ROUTE .STK-MED ONE Lab/Rad Data: Laboratory Result Diagrams 07/15/20 08:20 07/15/20 08:20 Laboratory Results 07/15/20 07/15/20 07/15/20 Range/Units 08:20 08:20 08:20 WBC 7.0 (4.0-10.5) K/mm3 RBC 5.02 (4.1-5.6) M/mm3 Hgb 15.1 (12.5-18.0) gm/dl Hct 46.0 (42-50) % MCV 91.6 (78-100) fl MCH 30.1 (26-32) pg MCHC 32.8 (32-36) g/dl RDW 13.6 (11.5-14.0) % Plt Count 220 (150-450) K/mm3 MPV 10.5 (7.5-11.0) fl Gran % 61.1 (36.0-66.0) % Eos # (Auto) 0.09 (0-0.5) Absolute Lymphs (auto) 2.04 (1.0-4.6) Absolute Monos (auto) 0.57 (0.0-1.3) Lymphocytes % 29.1 (24.0-44.0) % Monocytes % 8.1 (0.0-12.0) % Eosinophils % 1.3 (0.00-5.0) % Basophils % 0.4 (0.0-0.4) % Absolute Granulocytes 4.27 (1.4-6.9) Basophils # 0.03 (0-0.4) Sodium 140 (137-145) mmol/L Potassium 4.1 (3.5-5.1) mmol/L Chloride 107 (98-107) mmol/L Carbon Dioxide 26 (22-30) mmol/L Anion Gap 10.9 (5-15) MEQ/L BUN 13 (9-20) mg/dL Creatinine 0.65 L (0.66-1.25) mg/dL Estimated GFR > 60.0 ML/MIN Glucose 134 H (74-106) mg/dL Calcium 8.9 (8.4-10.2) mg/dL Total Bilirubin 0.50 (0.2-1.3) mg/dL AST 28 (17-59) U/L ALT 33 (0-50) U/L Alkaline Phosphatase 44 (38-126) U/L Troponin I < 0.012 (0.000-0.034) ng/mL Serum Total Protein 7.3 (6.3-8.2) g/dL Albumin 4.2 (3.5-5.0) g/dL Lipase 50 (23-300) U/L Urine Color (YELLOW) Urine Appearance (CLEAR) Urine pH (5-6) Ur Specific [place] (1.005-1.025) Urine Protein (Negative) Urine Ketones (NEGATIVE) Urine Blood (0-5) Waldo/ul Urine Nitrite (NEGATIVE) Urine Bilirubin (NEGATIVE) Urine Urobilinogen (0-1) mg/dL Ur Leukocyte Esterase (NEGATIVE) Urine WBC (Auto) (0-5) /HPF Urine RBC (Auto) (0-2) /HPF U Epithel Cells (Auto) (FEW) /HPF Urine Bacteria (Auto) (NEGATIVE) /HPF Urine Mucus (Auto) (NEGATIVE) /HPF Urine Culture Reflexed (NO) Urine Glucose (NEGATIVE) mg/dL 07/15/20 Range/Units 08:10 WBC (4.0-10.5) K/mm3 RBC (4.1-5.6) M/mm3 Hgb (12.5-18.0) gm/dl Hct (42-50) % MCV (78-100) fl MCH (26-32) pg MCHC (32-36) g/dl RDW (11.5-14.0) % Plt Count (150-450) K/mm3 MPV (7.5-11.0) fl Gran % (36.0-66.0) % Eos # (Auto) (0-0.5) Absolute Lymphs (auto) (1.0-4.6) Absolute Monos (auto) (0.0-1.3) Lymphocytes % (24.0-44.0) % Monocytes % (0.0-12.0) % Eosinophils % (0.00-5.0) % Basophils % (0.0-0.4) % Absolute Granulocytes (1.4-6.9) Basophils # (0-0.4) Sodium (137-145) mmol/L Potassium (3.5-5.1) mmol/L Chloride (98-107) mmol/L Carbon Dioxide (22-30) mmol/L Anion Gap (5-15) MEQ/L BUN (9-20) mg/dL Creatinine (0.66-1.25) mg/dL Estimated GFR ML/MIN Glucose (74-106) mg/dL Calcium (8.4-10.2) mg/dL Total Bilirubin (0.2-1.3) mg/dL AST (17-59) U/L ALT (0-50) U/L Alkaline Phosphatase (38-126) U/L Troponin I (0.000-0.034) ng/mL Serum Total Protein (6.3-8.2) g/dL Albumin (3.5-5.0) g/dL Lipase (23-300) U/L Urine Color YELLOW (YELLOW) Urine Appearance CLEAR (CLEAR) Urine pH 5.0 (5-6) Ur Specific [place] 1.025 (1.005-1.025) Urine Protein NEGATIVE (Negative) Urine Ketones NEGATIVE (NEGATIVE) Urine Blood NEGATIVE (0-5) Waldo/ul Urine Nitrite NEGATIVE (NEGATIVE) Urine Bilirubin NEGATIVE (NEGATIVE) Urine Urobilinogen NEGATIVE (0-1) mg/dL Ur Leukocyte Esterase NEGATIVE (NEGATIVE) Urine WBC (Auto) NONE (0-5) /HPF Urine RBC (Auto) NONE (0-2) /HPF U Epithel Cells (Auto) NONE (FEW) /HPF Urine Bacteria (Auto) NONE (NEGATIVE) /HPF Urine Mucus (Auto) SLIGHT (NEGATIVE) /HPF Urine Culture Reflexed NO (NO) Urine Glucose NEGATIVE (NEGATIVE) mg/dL - Progress Progress: improved Progress Note: 07/15/20 10:21 Patient reassessed. He is well. He had no bowel movements in our ED. Patient's dark stool coincides with intake of Pepto-Bismol. The dark stools likely due to bismuth in the Pepto-Bismol. Hemoglobin within normal limits. Patient advised to discontinue Pepto-Bismol and assess for normalization of stool color. We intended to send patient stool for Hemoccult however patient unable to produce a sample for us today. Patient has no abdominal pain at this time. CT negative for acute intra-abdominal pathology. Patient states he is ready for discharge. Patient agrees to follow-up with his primary care doctor within 48 hours for reevaluation. Counseled pt/family regarding: lab results, diagnosis, need for follow-up, rad results - Departure Departure Disposition: Home Clinical Impression: Dark stools, Diverticulosis, Fatty liver, Inguinal hernia of left side without obstruction or gangrene Condition: Stable Critical Care Time: No Referrals: SEPIDEH ALLAN [Primary Care Provider] - Additional Instructions: Discharge/Care Plan FANY AN was seen on 07/15/20 in the Emergency Room. The patient was counseled regarding Diagnosis,Lab results, Imaging studies, need for follow up and when to return to the Emergency Room. Prescriptions given: Discharge Note I have spoken with the patient and/or caregivers. I have explained the patient's condition, diagnosis and treatment plan based on the information available to me at this time. I have answered the patient's and/or caregiver's questions and addressed any concerns. The patient and/or caregivers have as good understanding of the patient's diagnosis, condition and treatment plan as can be expected at this point. The vital signs have been stable. The patient's condition is stable and appropriate for discharge from the emergency department. The patient will pursue further outpatient evaluation with the primary care physician or other designated or consulting physician as outlined in the discharge instructions. The patient and/or caregivers are agreeable to this plan of care and follow-up instructions have been explained in detail. The patient and/or caregivers have received these instruction. The patient/and or caregivers are aware that any significant change in condition or worsening of symptoms should prompt an immediate return to this or the closest emergency department or call 911.
[2020-07-15 08:22] LABS: Appearance CLEAR (CLEAR); Bilirubin NEGATIVE (NEGATIVE); Blood NEGATIVE Ery/ul (0-5); Glucose NEGATIVE (NEGATIVE); Ketones NEGATIVE (NEGATIVE); Leukocyte Esterase NEGATIVE (NEGATIVE); Mucus SLIGHT /HPF (NEGATIVE); Nitrite NEGATIVE (NEGATIVE); Protein,Urine Dip NEGATIVE (Negative); Specific Gravity 1.025 (1.005-1.025); Urobilinogen NEGATIVE mg/dL (0-1)
[2020-07-15 08:23] LABS: Absolute Neutrophil Ct (ANC) 4.27 (1.4-6.9); BASOPHIL % 0.4 % (0.0-0.4); Basophil (Absolute #) 0.03 (0-0.4); Eosinophil % 1.3 % (0.00-5.0); Eosinophil (Absolute #) 0.09 (0-0.5); Hemoglobin 15.1 gm/dl (12.5-18.0); Lymphocyte (Absolute #) 2.04 (1.0-4.6); Lymphocytes % 29.1 % (24.0-44.0); Mean Cell Volume 91.6 fl (78-100); Mean Corpuscular Hemoglobin 30.1 pg (26-32); Mean Corpuscular Hgb Concent. 32.8 g/dl (32-36); Mean Platelet Volume 10.5 fl (7.5-11.0); Monocyte (Absolute #) 0.57 (0.0-1.3); Monocytes % 8.1 % (0.0-12.0); Neutrophil % 61.1 % (36.0-66.0); Platelet Count 220 K/mm3 (150-450); Red Blood Count 5.02 M/mm3 (4.1-5.6); Red Cell Distribution Width 13.6 % (11.5-14.0)
[2020-07-15 08:33] LABS: ALBUMIN 4.2 g/dL (3.5-5.0); ALKALINE PHOSPHATASE 44 U/L (38-126); ANION GAP 10.9 MEQ/L (5-15); BLOOD UREA NITROGEN 13 mg/dL (9-20); CHLORIDE 107 mmol/L (98-107); Calcium 8.9 mg/dL (8.4-10.2); Carbon Dioxide 26 mmol/L (22-30); Creatinine 1 0.65 mg/dL (0.66-1.25); Glucose 134 mg/dL (74-106); LIPASE 50 U/L (23-300); Potassium 4.1 mmol/L (3.5-5.1); SGOT/AST 28 U/L (17-59); SGPT/ALT 33 U/L (0-50); SODIUM 140 mmol/L (137-145); Total Protein 7.3 g/dL (6.3-8.2)
--- NOTE | 2020-07-15 09:30 | XRAY ---
Indication: Abdomen and pelvic pain. Nausea. Blood in stool. Multiple contiguous axial images obtained through the chest using 80 cc Isovue 370 contrast only. Comparison: None Lung bases are clear. Heart is not enlarged. Small hiatal hernia. Noncontrasted stomach and bowel loops appear nonobstructed. Normal appendix. Minimal scattered colonic diverticulosis without diverticulitis. No free fluid/air. Diffuse fatty liver. Remaining liver, gallbladder, pancreas, spleen, adrenal glands, kidneys, ureters, bladder, and aorta appear unremarkable. No pathologic retroperitoneal lymphadenopathy. Osseous structures intact with incidental old nonunited right L1 transverse process fracture. Small fatty left inguinal hernia. Impression: 1. Minimal colonic diverticulosis, small hiatal hernia, fatty liver, and small fatty left inguinal hernia. 2. Remaining CT abdomen/pelvis with contrast exam is negative.
[2020-07-15 10:28] VITALS: O2SAT 99
[2020-07-15 11:04] VITALS: BP 119/80; PULSE 71
== END 2020-07-15 11:00 | disposition home or self-care (01) ==
LOC: ED 07:26
DX: R19.5 Other fecal abnormalities (principal); K57.90 Diverticulosis of intestine, part unspecified, without perforation or abscess without bleeding; K76.0 Fatty (change of) liver, not elsewhere classified; K40.90 Unilateral inguinal hernia, without obstruction or gangrene, not specified as recurrent; I10 Essential (primary) hypertension; Z72.0 Tobacco use
CPT/HCPCS: 36000; 36415; 74177; 80053; 81001; 83690; 84484; 85025; 99284

== ENCOUNTER 2020-08-31 06:27 | Emergency (ER) | payer OTHER ==
--- NOTE | 2020-08-31 07:23 | ERPHSYRPT ---
- History of Present Illness Time Seen by Provider: 08/31/20 07:10 Source: patient Exam Limitations: no limitations Patient Subjective Stated Complaint: Pt's mom states, "He's been very disagreeable and he can't focus and has been unable to think clearly". Triage Nursing Assessment: Pt's mom states, "he's been very disagreeable lately and is having trouble focuing and cannot think". Pt had to leave work early yesterday (3 hours early) due to being unable to concentrate and think. Pt has no feelings of wanting to harm himself or anyone else. Mom did not try to contact his therapist or counselor yesterday. Physician History: Patient is a 30-year-old male presents to our ED for evaluation. Mother at bedside states that patient has been acting differently. Mother states patient has not been thinking clearly. Patient has not been agreeable as usual. Symptoms started approximately 1 month ago after his medication, Latuda was stopped. Patient had been on Latuda for several months according to mother. Patient states he feels fine. He denies pain. No numbness tingling or weakness. No head trauma. Patient has no complaint at this time. Patient denies illicit drug use. Patient has no homicidal or suicidal ideation. No nausea or vomiting. No diarrhea. No chest pain. No rash. No fever. No neck pain. No photophobia. Patient has no meningeal signs. Mother bedside voices no other complaints or concerns. Timing/Duration: other (1 month) Severity: mild Modifying Factors: Improves With: nothing Associated Symptoms: denies symptoms Allergies/Adverse Reactions: No Known Drug Allergies Allergy (Verified 08/31/20 06:49) Home Medications: Buspirone HCl [Buspar] 5 mg PO BID 08/07/19 [History] Cholecalciferol (Vitamin D3) [Vitamin D3] 1,000 unit PO DAILY 09/01/19 [History] Benazepril HCl 10 mg PO DAILY 12/16/19 [History] Carvedilol 12.5 mg [Coreg 12.5 mg] 12.5 mg PO BID 12/16/19 [History] Omeprazole 40 mg PO DAILY 12/16/19 [History] Simvastatin 10 mg PO DAILY 12/16/19 [History] Cariprazine HCl [Vraylar] 3 mg PO DAILY 08/31/20 [History] Paliperidone [Invega] 3 mg PO DAILY 08/31/20 [History] Hx Tetanus, Diphtheria Vaccination/Date Given: No Hx Influenza Vaccination/Date Given: Yes (1 week ago) Hx Pneumococcal Vaccination/Date Given: No Immunizations Up to Date: No Travel Risk - International Travel Have you traveled outside of the country in past 3 weeks: No - Coronavirus Screening Are you exhibiting any of the following symptoms?: No Close contact with a COVID-19 positive Pt in past 14-21 Days: No - Review of Systems Constitutional: No Symptoms, No Fever, No Chills Eyes: No Symptoms Ears, Nose, & Throat: No Symptoms Respiratory: No Symptoms, No Cough, No Dyspnea Cardiac: No Symptoms, No Chest Pain, No Edema, No Syncope Abdominal/Gastrointestinal: No Symptoms, No Abdominal Pain, No Nausea, No Vomiting, No Diarrhea Genitourinary Symptoms: No Symptoms, No Dysuria Musculoskeletal: No Symptoms, No Back Pain, No Neck Pain Skin: No Symptoms, No Rash Neurological: No Dizziness, No Focal Weakness, No Sensory Changes Psychological: No Symptoms Endocrine: No Symptoms Hematologic/Lymphatic: No Symptoms Immunological/Allergic: No Symptoms All Other Systems: Reviewed and Negative - Past Medical History Pertinent Past Medical History: Yes Neurological History: No Pertinent History ENT History: No Pertinent History Cardiac History: Hypertension Respiratory History: No Pertinent History Endocrine Medical History: No Pertinent History Musculoskeletal History: No Pertinent History GI Medical History: GERD History: No Pertinent History Psycho-Social History: Anxiety, Bipolar, Depression, Other Male Reproductive Disorders: No Pertinent History Other Medical History: PSYCH HX - Past Surgical History Past Surgical History: Yes Neuro Surgical History: No Pertinent History Cardiac: No Pertinent History Respiratory: No Pertinent History Gastrointestinal: No Pertinent History Genitourinary: No Pertinent History Musculoskeletal: Other Male Surgical History: No Pertinent History Other Surgical History: pt states he had thumb surgery when he was a baby. - Social History Smoking Status: Former smoker Exposure to second hand smoke: Yes Drug Use: none Patient Lives Alone: Yes - Nursing Vital Signs Nursing Vital Signs: Initial Vital Signs Temperature 98.4 F 08/31/20 06:37 Pulse Rate 69 08/31/20 06:37 Respiratory Rate 20 08/31/20 06:37 Blood Pressure 155/90 08/31/20 06:37 O2 Sat by Pulse Oximetry 97 08/31/20 06:37 Pain Scale Pain Intensity 0 - Physical Exam General Appearance: no apparent distress, alert Eye Exam: PERRL/EOMI, eyes nml inspection Ears, Nose, Throat Exam: normal ENT inspection, TMs normal, pharynx normal, moist mucous membranes Neck Exam: normal inspection, non-tender, supple, full range of motion Respiratory Exam: normal breath sounds, lungs clear, No respiratory distress Cardiovascular Exam: regular rate/rhythm, normal heart sounds, normal peripheral pulses Gastrointestinal/Abdomen Exam: soft, normal bowel sounds, No tenderness, No mass Back Exam: normal inspection, normal range of motion, No CVA tenderness, No vertebral tenderness Extremity Exam: normal inspection, normal range of motion, pelvis stable Neurologic Exam: alert, oriented x 3, 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, 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, normal mood/affect, nml cerebellar function, nml station & gait, sensation nml, No motor deficits, No sensory deficit, No disoriented, No confusion, No agitation, No uncooperative, No intoxicated appearance, No depressed mood/affect, No motor weakness, No facial droop, No slurred speech, No aphasia, No dysarthria Skin Exam: normal color, warm, dry, No rash Lymphatic Exam: No adenopathy SpO2 Interpretation: normal SpO2: 97 O2 Delivery: Room Air - Course Nursing assessment & vital signs reviewed: Yes Ordered Tests: Active Orders 24 hr Category Date Time Status F[employer] As[employer]er STAT Care 08/31/20 07:07 Active ACETAMINOPHEN Stat Lab 08/31/20 07:34 Completed CBC W DIFF Stat Lab 08/31/20 07:34 Completed CMP Stat Lab 08/31/20 07:34 Completed ETHYL ALCOHOL Stat Lab 08/31/20 07:34 Completed SALICYLATE Stat Lab 08/31/20 07:34 Completed UA W/RFX UR CULTURE Stat Lab 08/31/20 07:50 Completed Urine Triage Profile Stat Lab 08/31/20 07:50 Completed Lab/Rad Data: Laboratory Result Diagrams 08/31/20 07:34 08/31/20 07:34 Laboratory Results 08/31/20 08/31/20 08/31/20 Range/Units 07:50 07:50 07:34 WBC (4.0-10.5) K/mm3 RBC (4.1-5.6) M/mm3 Hgb (12.5-18.0) gm/dl Hct (42-50) % MCV (78-100) fl MCH (26-32) pg MCHC (32-36) g/dl RDW (11.5-14.0) % Plt Count (150-450) K/mm3 MPV (7.5-11.0) fl Gran % (36.0-66.0) % Eos # (Auto) (0-0.5) Absolute Lymphs (auto) (1.0-4.6) Absolute Monos (auto) (0.0-1.3) Lymphocytes % (24.0-44.0) % Monocytes % (0.0-12.0) % Eosinophils % (0.00-5.0) % Basophils % (0.0-0.4) % Absolute Granulocytes (1.4-6.9) Basophils # (0-0.4) Sodium 138 (137-145) mmol/L Potassium 4.0 (3.5-5.1) mmol/L Chloride 103 (98-107) mmol/L Carbon Dioxide 28 (22-30) mmol/L Anion Gap 10.8 (5-15) MEQ/L BUN 15 (9-20) mg/dL Creatinine 0.89 (0.66-1.25) mg/dL Estimated GFR > 60.0 ML/MIN Glucose 139 H (74-106) mg/dL Calcium 9.5 (8.4-10.2) mg/dL Total Bilirubin 0.50 (0.2-1.3) mg/dL AST 33 (17-59) U/L ALT 49 (0-50) U/L Alkaline Phosphatase 44 (38-126) U/L Serum Total Protein 7.6 (6.3-8.2) g/dL Albumin 4.5 (3.5-5.0) g/dL Urine Color YELLOW (YELLOW) Urine Appearance SLIGHTLY CLOUDY (CLEAR) Urine pH 5.0 (5-6) Ur Specific [place] 1.027 (1.005-1.025) Urine Protein NEGATIVE (Negative) Urine Ketones NEGATIVE (NEGATIVE) Urine Blood NEGATIVE (0-5) [place]/ul Urine Nitrite NEGATIVE (NEGATIVE) Urine Bilirubin NEGATIVE (NEGATIVE) Urine Urobilinogen NEGATIVE (0-1) mg/dL Ur Leukocyte Esterase NEGATIVE (NEGATIVE) Urine WBC (Auto) NONE (0-5) /HPF Urine RBC (Auto) 0-2 (0-2) /HPF U Epithel Cells (Auto) NONE (FEW) /HPF Urine Bacteria (Auto) NONE (NEGATIVE) /HPF Urine Mucus (Auto) MANY (NEGATIVE) /HPF Urine Culture Reflexed NO (NO) Urine Glucose NEGATIVE (NEGATIVE) mg/dL Salicylates < 1.0 L (2-20) mg/dL Urine Opiates Level NEGATIVE (NEGATIVE) Ur Methadone NEGATIVE (NEGATIVE) Acetaminophen < 10 L (10-30) ug/ml Urine Barbiturates NEGATIVE (NEGATIVE) Ur Phencyclidine (PCP) NEGATIVE (NEGATIVE) Urine Amphetamine NEGATIVE (NEGATIVE) U Benzodiazepine Level NEGATIVE (NEGATIVE) Urine Cocaine NEGATIVE (NEGATIVE) Urine Marijuana (THC) NEGATIVE (NEGATIVE) Ethyl Alcohol < 10 (0-10) mg/dL 08/31/20 Range/Units 07:34 WBC 8.0 (4.0-10.5) K/mm3 RBC 4.93 (4.1-5.6) M/mm3 Hgb 14.6 (12.5-18.0) gm/dl Hct 45.3 (42-50) % MCV 91.9 (78-100) fl MCH 29.6 (26-32) pg MCHC 32.2 (32-36) g/dl RDW 13.3 (11.5-14.0) % Plt Count 231 (150-450) K/mm3 MPV 10.8 (7.5-11.0) fl Gran % 69.0 H (36.0-66.0) % Eos # (Auto) 0.05 (0-0.5) Absolute Lymphs (auto) 1.67 (1.0-4.6) Absolute Monos (auto) 0.72 (0.0-1.3) Lymphocytes % 21.0 L (24.0-44.0) % Monocytes % 9.1 (0.0-12.0) % Eosinophils % 0.6 (0.00-5.0) % Basophils % 0.3 (0.0-0.4) % Absolute Granulocytes 5.49 (1.4-6.9) Basophils # 0.02 (0-0.4) Sodium (137-145) mmol/L Potassium (3.5-5.1) mmol/L Chloride (98-107) mmol/L Carbon Dioxide (22-30) mmol/L Anion Gap (5-15) MEQ/L BUN (9-20) mg/dL Creatinine (0.66-1.25) mg/dL Estimated GFR ML/MIN Glucose (74-106) mg/dL Calcium (8.4-10.2) mg/dL Total Bilirubin (0.2-1.3) mg/dL AST (17-59) U/L ALT (0-50) U/L Alkaline Phosphatase (38-126) U/L Serum Total Protein (6.3-8.2) g/dL Albumin (3.5-5.0) g/dL Urine Color (YELLOW) Urine Appearance (CLEAR) Urine pH (5-6) Ur Specific [place] (1.005-1.025) Urine Protein (Negative) Urine Ketones (NEGATIVE) Urine Blood (0-5) [place]/ul Urine Nitrite (NEGATIVE) Urine Bilirubin (NEGATIVE) Urine Urobilinogen (0-1) mg/dL Ur Leukocyte Esterase (NEGATIVE) Urine WBC (Auto) (0-5) /HPF Urine RBC (Auto) (0-2) /HPF U Epithel Cells (Auto) (FEW) /HPF Urine Bacteria (Auto) (NEGATIVE) /HPF Urine Mucus (Auto) (NEGATIVE) /HPF Urine Culture Reflexed (NO) Urine Glucose (NEGATIVE) mg/dL Salicylates (2-20) mg/dL Urine Opiates Level (NEGATIVE) Ur Methadone (NEGATIVE) Acetaminophen (10-30) ug/ml Urine Barbiturates (NEGATIVE) Ur Phencyclidine (PCP) (NEGATIVE) Urine Amphetamine (NEGATIVE) U Benzodiazepine Level (NEGATIVE) Urine Cocaine (NEGATIVE) Urine Marijuana (THC) (NEGATIVE) Ethyl Alcohol (0-10) mg/dL - Progress Progress: improved Progress Note: 08/31/20 07:25 Patient reassessed. He is well. Patient has no complaints. Patient answering questions appropriately. 08/31/20 09:04 Repeat neuro exam within normal limits. Work-up negative. No indication for further evaluation at this time. Will discharge home. Patient agrees to follow-up with his primary care doctor within 48 hours for reevaluation. Mother at bedside voices no other complaints or concerns. Counseled pt/family regarding: lab results, diagnosis, need for follow-up - Departure Departure Disposition: Home Clinical Impression: Encounter for medical screening examination Condition: Stable Critical Care Time: No Referrals: SEPIDEH ALLAN [Primary Care Provider] - Additional Instructions: Discharge/Care Plan FANY AN was seen on 08/31/20 in the Emergency Room. The patient was counseled regarding Diagnosis,Lab results, Imaging studies, need for follow up and when to return to the Emergency Room. Prescriptions given: Discharge Note I have spoken with the patient and/or caregivers. I have explained the patient's condition, diagnosis and treatment plan based on the information available to me at this time. I have answered the patient's and/or caregiver's questions and addressed any concerns. The patient and/or caregivers have as good understanding of the patient's diagnosis, condition and treatment plan as can be expected at this point. The vital signs have been stable. The patient's condition is stable and appropriate for discharge from the emergency department. The patient will pursue further outpatient evaluation with the primary care physician or other designated or consulting physician as outlined in the discharge instructions. The patient and/or caregivers are agreeable to this plan of care and follow-up instructions have been explained in detail. The patient and/or caregivers have received these instruction. The patient/and or caregivers are aware that any significant change in condition or worsening of symptoms should prompt an immediate return to this or the closest emergency department or call 911.
[2020-08-31 07:40] LABS: Absolute Neutrophil Ct (ANC) 5.49 (1.4-6.9); BASOPHIL % 0.3 % (0.0-0.4); Basophil (Absolute #) 0.02 (0-0.4); Eosinophil % 0.6 % (0.00-5.0); Eosinophil (Absolute #) 0.05 (0-0.5); Hematocrit 45.3 % (42-50); Hemoglobin 14.6 gm/dl (12.5-18.0); Lymphocyte (Absolute #) 1.67 (1.0-4.6); Mean Cell Volume 91.9 fl (78-100); Mean Corpuscular Hemoglobin 29.6 pg (26-32); Mean Corpuscular Hgb Concent. 32.2 g/dl (32-36); Mean Platelet Volume 10.8 fl (7.5-11.0); Monocyte (Absolute #) 0.72 (0.0-1.3); Monocytes % 9.1 % (0.0-12.0); Platelet Count 231 K/mm3 (150-450); Red Blood Count 4.93 M/mm3 (4.1-5.6); Red Cell Distribution Width 13.3 % (11.5-14.0)
[2020-08-31 07:52] LABS: ALBUMIN 4.5 g/dL (3.5-5.0); ALKALINE PHOSPHATASE 44 U/L (38-126); ANION GAP 10.8 MEQ/L (5-15); BLOOD UREA NITROGEN 15 mg/dL (9-20); CHLORIDE 103 mmol/L (98-107); Calcium 9.5 mg/dL (8.4-10.2); Carbon Dioxide 28 mmol/L (22-30); Creatinine 1 0.89 mg/dL (0.66-1.25); EST GLOMERULAR FILTRATION RATE > 60.0 ML/MIN; Glucose 139 mg/dL (74-106); SGOT/AST 33 U/L (17-59); SGPT/ALT 49 U/L (0-50); SODIUM 138 mmol/L (137-145); Total Protein 7.6 g/dL (6.3-8.2)
[2020-08-31 07:54] LABS: ACETAMINOPHEN < 10 ug/ml (10-30); ETHYL ALCOHOL < 10 mg/dL (0-10); SALICYLATE < 1.0 mg/dL (2-20)
[2020-08-31 08:07] LABS: Appearance SLIGHTLY CLOUDY (CLEAR); Bilirubin NEGATIVE (NEGATIVE); Blood NEGATIVE Ery/ul (0-5); Glucose NEGATIVE (NEGATIVE); Ketones NEGATIVE (NEGATIVE); Leukocyte Esterase NEGATIVE (NEGATIVE); Mucus MANY /HPF (NEGATIVE); Nitrite NEGATIVE (NEGATIVE); Protein,Urine Dip NEGATIVE (Negative); RBC 0-2 /HPF (0-2); Specific Gravity 1.027 (1.005-1.025); Urobilinogen NEGATIVE mg/dL (0-1)
[2020-08-31 09:00] LABS: Amphetamine,Urine NEGATIVE (NEGATIVE); Barbiturate,Urine NEGATIVE (NEGATIVE); Benzodiazepine,Urine NEGATIVE (NEGATIVE); Cocaine,Urine NEGATIVE (NEGATIVE); Methadone,Urine NEGATIVE (NEGATIVE); Opiate,Urine NEGATIVE (NEGATIVE); PCP,Urine NEGATIVE (NEGATIVE); THC,Urine NEGATIVE (NEGATIVE)
[2020-08-31 09:06] VITALS: O2SAT 97
[2020-08-31 09:12] VITALS: BP 147/90; PULSE 82
== END 2020-08-31 09:14 | disposition home or self-care (01) ==
LOC: ED 06:27
DX: Z00.01 Encounter for general adult medical examination with abnormal findings (principal); F31.9 Bipolar disorder, unspecified
CPT/HCPCS: 36415; 80053; 80307; 81001; 85025; 93041; 99284; G0480

== ENCOUNTER 2020-09-21 19:04 | Emergency (ER) | payer OTHER ==
[2020-09-21 19:48] LABS: Absolute Neutrophil Ct (ANC) 5.24 (1.4-6.9); BASOPHIL % 0.1 % (0.0-0.4); Basophil (Absolute #) 0.01 (0-0.4); Eosinophil (Absolute #) 0.08 (0-0.5); Hematocrit 48.2 % (42-50); Hemoglobin 15.9 gm/dl (12.5-18.0); INR 1.11 (0.8-3.0); Lymphocyte (Absolute #) 2.08 (1.0-4.6); Lymphocytes % 25.3 % (24.0-44.0); Mean Cell Volume 92.3 fl (78-100); Mean Corpuscular Hemoglobin 30.5 pg (26-32); Mean Platelet Volume 10.7 fl (7.5-11.0); Monocytes % 9.7 % (0.0-12.0); Neutrophil % 63.9 % (36.0-66.0); PROTIME 12.5 SECONDS (8.83-12.87); Platelet Count 227 K/mm3 (150-450); Red Blood Count 5.22 M/mm3 (4.1-5.6); Red Cell Distribution Width 13.9 % (11.5-14.0); White Blood Count 8.2 K/mm3 (4.0-10.5)
[2020-09-21 19:50] LABS: PTT 29.6 SECONDS (24.1-36.1)
[2020-09-21 19:53] LABS: ALBUMIN 4.3 g/dL (3.5-5.0); ALKALINE PHOSPHATASE 46 U/L (38-126); ANION GAP 12.2 MEQ/L (5-15); Appearance SLIGHTLY CLOUDY (CLEAR); BLOOD UREA NITROGEN 16 mg/dL (9-20); Bilirubin NEGATIVE (NEGATIVE); Blood NEGATIVE Ery/ul (0-5); CHLORIDE 102 mmol/L (98-107); Calcium 9.3 mg/dL (8.4-10.2); Carbon Dioxide 25 mmol/L (22-30); Creatinine 1 0.68 mg/dL (0.66-1.25); EST GLOMERULAR FILTRATION RATE > 60.0 ML/MIN; Glucose 116 mg/dL (74-106); Glucose NEGATIVE (NEGATIVE); Ketones NEGATIVE (NEGATIVE); Leukocyte Esterase NEGATIVE (NEGATIVE); Mucus SLIGHT /HPF (NEGATIVE); Nitrite NEGATIVE (NEGATIVE); Potassium 3.6 mmol/L (3.5-5.1); Protein,Urine Dip NEGATIVE (Negative); SGOT/AST 78 U/L (17-59); SGPT/ALT 49 U/L (0-50); SODIUM 136 mmol/L (137-145); Specific Gravity 1.018 (1.005-1.025); Total Protein 7.3 g/dL (6.3-8.2); Urobilinogen NEGATIVE mg/dL (0-1); WBC 0-2 /HPF (0-5)
[2020-09-21 19:55] LABS: ETHYL ALCOHOL < 10 mg/dL (0-10)
[2020-09-21 19:56] LABS: Amphetamine,Urine NEGATIVE (NEGATIVE); Barbiturate,Urine NEGATIVE (NEGATIVE); Benzodiazepine,Urine NEGATIVE (NEGATIVE); Cocaine,Urine NEGATIVE (NEGATIVE); Methadone,Urine NEGATIVE (NEGATIVE); Opiate,Urine NEGATIVE (NEGATIVE); PCP,Urine NEGATIVE (NEGATIVE); THC,Urine NEGATIVE (NEGATIVE)
--- NOTE | 2020-09-21 19:56 | ERPHSYRPT ---
- History of Present Illness Source: EMS Exam Limitations: other (Pt nonverbal upon arrival) Patient Subjective Stated Complaint: pt arrived by EMS, lethargic, eye open Triage Nursing Assessment: pt arrived via EMS. They got the call that pt was sitting on side of the bed then just went unresponsive, laid back on bed. EMS brought pt to ER, he received Narcan 2mg in route to ER. Upon arrival, pt went directly to CT scan of head. Pt returned from CT, eyes open, PERRL, pt answered questions to his name, and place. Pt is very lethargic, moved his head side to side, but no other movements noticed. Pt's clothes cut off, hooked up to panel monitor, O2 sats, b/p and EKG performed. F/c placed, urine sent. 2nd IV placed and labs sent for analysis. Lungs diminished throughout. Abd lg, soft with active bs x4 quad, nontender. Physician History: 30 yo wm w altered mental status. According to EMS, pt was sitting on bed and fell backward onto bed. There is no evidence of trauma. Pt was rushed to CT scan upon arrival, and CT appeared neg for blood. Pt had a good airway upon arrival and gradually became alert and oriented x3. He denied any pain and did not know what happened to him. Timing/Duration: today Severity: mild Character of Deficits: other (Pt nonverbal) Deficits: weak (Pt nonverbal) Baseline/Normal Cognition: alert oriented x 3 Current Cognition: poor alertness (Lethargic but became oriented x3) Associated Symptoms: denies symptoms Allergies/Adverse Reactions: No Known Drug Allergies Allergy (Verified 09/21/20 19:42) Home Medications: Buspirone HCl [Buspar] 5 mg PO BID 08/07/19 [History] Cholecalciferol (Vitamin D3) [Vitamin D3] 1,000 unit PO DAILY 09/01/19 [History] Benazepril HCl 10 mg PO DAILY 12/16/19 [History] Carvedilol 12.5 mg [Coreg 12.5 mg] 12.5 mg PO BID 12/16/19 [History] Omeprazole 40 mg PO DAILY 12/16/19 [History] Simvastatin 10 mg PO DAILY 12/16/19 [History] Hx Tetanus, Diphtheria Vaccination/Date Given: No Hx Influenza Vaccination/Date Given: Yes Hx Pneumococcal Vaccination/Date Given: No Travel Risk - International Travel Have you traveled outside of the country in past 3 weeks: No - Coronavirus Screening Are you exhibiting any of the following symptoms?: No Close contact with a COVID-19 positive Pt in past 14-21 Days: No - Review of Systems All Other Systems: Unable due to condition - Past Medical History Pertinent Past Medical History: Yes Neurological History: No Pertinent History ENT History: No Pertinent History Cardiac History: Hypertension Respiratory History: No Pertinent History Endocrine Medical History: No Pertinent History Musculoskeletal History: No Pertinent History GI Medical History: GERD History: No Pertinent History Psycho-Social History: Anxiety, Bipolar, Depression, Other Male Reproductive Disorders: No Pertinent History Other Medical History: PSYCH HX - Past Surgical History Past Surgical History: Yes Neuro Surgical History: No Pertinent History Cardiac: No Pertinent History Respiratory: No Pertinent History Gastrointestinal: No Pertinent History Genitourinary: No Pertinent History Musculoskeletal: Other Male Surgical History: No Pertinent History Other Surgical History: pt states he had thumb surgery when he was a baby. - Social History Smoking Status: Former smoker Exposure to second hand smoke: Yes Drug Use: none Patient Lives Alone: Yes - Nursing Vital Signs Nursing Vital Signs: Initial Vital Signs Temperature 98.6 F 09/21/20 19:05 Pulse Rate 82 09/21/20 19:05 Respiratory Rate 22 09/21/20 19:05 Blood Pressure 140/87 09/21/20 19:05 O2 Sat by Pulse Oximetry 96 09/21/20 19:05 Pain Scale Pain Intensity 0 - [place] Coma Scale Best Eye Response ([place]): (4) open spontaneously Best Verbal Response ([place]): (2) incomprehsible sounds Best Motor Response ([place]): (6) obeys commands [place] Total: 12 - Physical Exam General Appearance: no apparent distress Eye Exam: bilateral eye: normal inspection, PERRL, EOMI Ears, Nose, Throat Exam: normal ENT inspection, TMs normal, pharynx normal, moist mucous membranes Neck Exam: normal inspection, non-tender, supple, No meningismus, No mass, No Brudzinski, No Kernig's Respiratory: normal breath sounds, lungs clear, airway intact, No respiratory distress Cardiovascular: regular rate/rhythm, normal heart sounds, normal peripheral pulses, No murmur Gastrointestinal: soft, normal bowel sounds (Morbidly obese) Back Exam: normal inspection, normal range of motion Extremity Exam: normal inspection, normal range of motion, pelvis stable Peripheral Pulses: carotid (R): 2+, carotid (L): 2+ Mental Status: oriented x 3, lethargy international representative Exam: PERRL, No abnormal eye position, No abnormal gag reflex Motor/Sensory: no motor deficit DTR: bicep (R): 2+, bicep (L): 2+ Skin Exam: normal color, warm, dry SpO2 Interpretation: normal SpO2: 95 O2 Delivery: Room Air - Course EKG Interpreted by Me: RATE (NSR/R80/Normal QT-QTc/No acutre ST-T wave changes) - CT Exams Head CT Interpretation: Discussed w/radiologist (Neg) Ordered Tests: Active Orders 24 hr Category Date Time Status Command And Control Specialist STAT Care 09/21/20 19:34 Completed EKG-ER Only STAT Care 09/21/20 19:14 Completed Tolentino [Catheter-[place] Tolentino] STAT Care 09/21/20 19:34 Completed IV Insertion STAT Care 09/21/20 19:34 Completed IV Insertion-2nd Peripheral STAT Care 09/21/20 19:34 Completed Pulse Oximetry (ED) STAT Care 09/21/20 19:34 Completed HEAD WITHOUT CONTRAST [CT] Stat Exams 09/21/20 19:19 Taken ACETAMINOPHEN Stat Lab 09/21/20 19:15 Completed CBC W DIFF Stat Lab 09/21/20 19:34 Completed CMP Stat Lab 09/21/20 19:34 Completed ETHYL ALCOHOL Stat Lab 09/21/20 19:34 Completed Lactic Acid Stat Lab 09/21/20 19:25 Completed PROTIME WITH INR Stat Lab 09/21/20 19:34 Completed PTT Stat Lab 09/21/20 19:34 Completed SALICYLATE Stat Lab 09/21/20 19:15 Completed TROPONIN Q3H Lab 09/21/20 19:34 Completed UA W/RFX UR CULTURE Stat Lab 09/21/20 19:34 Completed Urine Triage Profile Stat Lab 09/21/20 19:34 Completed Lab/Rad Data: Laboratory Result Diagrams 09/21/20 19:34 09/21/20 19:34 Laboratory Results 09/21/20 09/21/20 09/21/20 Range/Units 19:34 19:34 19:34 WBC (4.0-10.5) K/mm3 RBC (4.1-5.6) M/mm3 Hgb (12.5-18.0) gm/dl Hct (42-50) % MCV (78-100) fl MCH (26-32) pg MCHC (32-36) g/dl RDW (11.5-14.0) % Plt Count (150-450) K/mm3 MPV (7.5-11.0) fl Gran % (36.0-66.0) % Eos # (Auto) (0-0.5) Absolute Lymphs (auto) (1.0-4.6) Absolute Monos (auto) (0.0-1.3) Lymphocytes % (24.0-44.0) % Monocytes % (0.0-12.0) % Eosinophils % (0.00-5.0) % Basophils % (0.0-0.4) % Absolute Granulocytes (1.4-6.9) Basophils # (0-0.4) PT 12.5 (8.83-12.87) SECONDS INR 1.11 (0.8-3.0) APTT 29.6 (24.1-36.1) SECONDS Sodium 136 L (137-145) mmol/L Potassium 3.6 (3.5-5.1) mmol/L Chloride 102 (98-107) mmol/L Carbon Dioxide 25 (22-30) mmol/L Anion Gap 12.2 (5-15) MEQ/L BUN 16 (9-20) mg/dL Creatinine 0.68 (0.66-1.25) mg/dL Estimated GFR > 60.0 ML/MIN Glucose 116 H (74-106) mg/dL Lactic Acid (0.4-2.0) Calcium 9.3 (8.4-10.2) mg/dL Total Bilirubin 0.80 (0.2-1.3) mg/dL AST 78 H (17-59) U/L ALT 49 (0-50) U/L Alkaline Phosphatase 46 (38-126) U/L Troponin I < 0.012 (0.000-0.034) ng/mL Serum Total Protein 7.3 (6.3-8.2) g/dL Albumin 4.3 (3.5-5.0) g/dL Urine Color (YELLOW) Urine Appearance (CLEAR) Urine pH (5-6) Ur Specific [place] (1.005-1.025) Urine Protein (Negative) Urine Ketones (NEGATIVE) Urine Blood (0-5) Waldo/ul Urine Nitrite (NEGATIVE) Urine Bilirubin (NEGATIVE) Urine Urobilinogen (0-1) mg/dL Ur Leukocyte Esterase (NEGATIVE) Urine WBC (Auto) (0-5) /HPF Urine RBC (Auto) (0-2) /HPF U Epithel Cells (Auto) (FEW) /HPF Urine Bacteria (Auto) (NEGATIVE) /HPF Urine Mucus (Auto) (NEGATIVE) /HPF Urine Culture Reflexed (NO) Urine Glucose (NEGATIVE) mg/dL Salicylates (2-20) mg/dL Urine Opiates Level (NEGATIVE) Ur Methadone (NEGATIVE) Acetaminophen (10-30) ug/ml Urine Barbiturates (NEGATIVE) Ur Phencyclidine (PCP) (NEGATIVE) Urine Amphetamine (NEGATIVE) U Benzodiazepine Level (NEGATIVE) Urine Cocaine (NEGATIVE) Urine Marijuana (THC) (NEGATIVE) Ethyl Alcohol < 10 (0-10) mg/dL 09/21/20 09/21/20 09/21/20 Range/Units 19:34 19:34 19:34 WBC 8.2 (4.0-10.5) K/mm3 RBC 5.22 (4.1-5.6) M/mm3 Hgb 15.9 (12.5-18.0) gm/dl Hct 48.2 (42-50) % MCV 92.3 (78-100) fl MCH 30.5 (26-32) pg MCHC 33.0 (32-36) g/dl RDW 13.9 (11.5-14.0) % Plt Count 227 (150-450) K/mm3 MPV 10.7 (7.5-11.0) fl Gran % 63.9 (36.0-66.0) % Eos # (Auto) 0.08 (0-0.5) Absolute Lymphs (auto) 2.08 (1.0-4.6) Absolute Monos (auto) 0.80 (0.0-1.3) Lymphocytes % 25.3 (24.0-44.0) % Monocytes % 9.7 (0.0-12.0) % Eosinophils % 1.0 (0.00-5.0) % Basophils % 0.1 (0.0-0.4) % Absolute Granulocytes 5.24 (1.4-6.9) Basophils # 0.01 (0-0.4) PT (8.83-12.87) SECONDS INR (0.8-3.0) APTT (24.1-36.1) SECONDS Sodium (137-145) mmol/L Potassium (3.5-5.1) mmol/L Chloride (98-107) mmol/L Carbon Dioxide (22-30) mmol/L Anion Gap (5-15) MEQ/L BUN (9-20) mg/dL Creatinine (0.66-1.25) mg/dL Estimated GFR ML/MIN Glucose (74-106) mg/dL Lactic Acid (0.4-2.0) Calcium (8.4-10.2) mg/dL Total Bilirubin (0.2-1.3) mg/dL AST (17-59) U/L ALT (0-50) U/L Alkaline Phosphatase (38-126) U/L Troponin I (0.000-0.034) ng/mL Serum Total Protein (6.3-8.2) g/dL Albumin (3.5-5.0) g/dL Urine Color YELLOW (YELLOW) Urine Appearance SLIGHTLY CLOUDY (CLEAR) Urine pH 6.0 (5-6) Ur Specific [place] 1.018 (1.005-1.025) Urine Protein NEGATIVE (Negative) Urine Ketones NEGATIVE (NEGATIVE) Urine Blood NEGATIVE (0-5) Waldo/ul Urine Nitrite NEGATIVE (NEGATIVE) Urine Bilirubin NEGATIVE (NEGATIVE) Urine Urobilinogen NEGATIVE (0-1) mg/dL Ur Leukocyte Esterase NEGATIVE (NEGATIVE) Urine WBC (Auto) 0-2 (0-5) /HPF Urine RBC (Auto) NONE (0-2) /HPF U Epithel Cells (Auto) NONE (FEW) /HPF Urine Bacteria (Auto) NONE (NEGATIVE) /HPF Urine Mucus (Auto) SLIGHT (NEGATIVE) /HPF Urine Culture Reflexed YES (NO) Urine Glucose NEGATIVE (NEGATIVE) mg/dL Salicylates (2-20) mg/dL Urine Opiates Level NEGATIVE (NEGATIVE) Ur Methadone NEGATIVE (NEGATIVE) Acetaminophen (10-30) ug/ml Urine Barbiturates NEGATIVE (NEGATIVE) Ur Phencyclidine (PCP) NEGATIVE (NEGATIVE) Urine Amphetamine NEGATIVE (NEGATIVE) U Benzodiazepine Level NEGATIVE (NEGATIVE) Urine Cocaine NEGATIVE (NEGATIVE) Urine Marijuana (THC) NEGATIVE (NEGATIVE) Ethyl Alcohol (0-10) mg/dL 09/21/20 09/21/20 Range/Units 19:25 19:15 WBC (4.0-10.5) K/mm3 RBC (4.1-5.6) M/mm3 Hgb (12.5-18.0) gm/dl Hct (42-50) % MCV (78-100) fl MCH (26-32) pg MCHC (32-36) g/dl RDW (11.5-14.0) % Plt Count (150-450) K/mm3 MPV (7.5-11.0) fl Gran % (36.0-66.0) % Eos # (Auto) (0-0.5) Absolute Lymphs (auto) (1.0-4.6) Absolute Monos (auto) (0.0-1.3) Lymphocytes % (24.0-44.0) % Monocytes % (0.0-12.0) % Eosinophils % (0.00-5.0) % Basophils % (0.0-0.4) % Absolute Granulocytes (1.4-6.9) Basophils # (0-0.4) PT (8.83-12.87) SECONDS INR (0.8-3.0) APTT (24.1-36.1) SECONDS Sodium (137-145) mmol/L Potassium (3.5-5.1) mmol/L Chloride (98-107) mmol/L Carbon Dioxide (22-30) mmol/L Anion Gap (5-15) MEQ/L BUN (9-20) mg/dL Creatinine (0.66-1.25) mg/dL Estimated GFR ML/MIN Glucose (74-106) mg/dL Lactic Acid 0.9 (0.4-2.0) Calcium (8.4-10.2) mg/dL Total Bilirubin (0.2-1.3) mg/dL AST (17-59) U/L ALT (0-50) U/L Alkaline Phosphatase (38-126) U/L Troponin I (0.000-0.034) ng/mL Serum Total Protein (6.3-8.2) g/dL Albumin (3.5-5.0) g/dL Urine Color (YELLOW) Urine Appearance (CLEAR) Urine pH (5-6) Ur Specific [place] (1.005-1.025) Urine Protein (Negative) Urine Ketones (NEGATIVE) Urine Blood (0-5) Waldo/ul Urine Nitrite (NEGATIVE) Urine Bilirubin (NEGATIVE) Urine Urobilinogen (0-1) mg/dL Ur Leukocyte Esterase (NEGATIVE) Urine WBC (Auto) (0-5) /HPF Urine RBC (Auto) (0-2) /HPF U Epithel Cells (Auto) (FEW) /HPF Urine Bacteria (Auto) (NEGATIVE) /HPF Urine Mucus (Auto) (NEGATIVE) /HPF Urine Culture Reflexed (NO) Urine Glucose (NEGATIVE) mg/dL Salicylates < 1.0 L (2-20) mg/dL Urine Opiates Level (NEGATIVE) Ur Methadone (NEGATIVE) Acetaminophen < 10 L (10-30) ug/ml Urine Barbiturates (NEGATIVE) Ur Phencyclidine (PCP) (NEGATIVE) Urine Amphetamine (NEGATIVE) U Benzodiazepine Level (NEGATIVE) Urine Cocaine (NEGATIVE) Urine Marijuana (THC) (NEGATIVE) Ethyl Alcohol (0-10) mg/dL - Progress Progress: improved Progress Note: 09/21/20 20:48 [facility] called and stated that they want to admit pt due to prior contact earlier today. Pt has a h/o psychiatric ds, and they are familiar w him due to previous admit. 09/21/20 23:01 Pt became more awake and alert during stay. Before transfer, pt pulled catheter out which was placed initially to get UA/UDS. He developed bleeding, so catheter was placed wo difficulty. Catheter irrigated well. [facility] notified that pt would be coming w catheter. Stable upon transfer. 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
[2020-09-21 20:22] LABS: ACETAMINOPHEN < 10 ug/ml (10-30); SALICYLATE < 1.0 mg/dL (2-20)
[2020-09-21 22:28] VITALS: BP 128/74; PULSE 84
[2020-09-21 23:04] VITALS: O2SAT 95
--- NOTE | 2020-09-22 08:47 | XRAY ---
Indication: Altered mental status. Unable to speak. Stroke. Multiple contiguous axial images obtained through the head without contrast. Comparison: July 20, 2017. Normal appearing brain parenchyma, ventricles, and bony calvarium. Visualized paranasal sinuses and mastoid air cells are clear. Impression: Continued normal CT head without contrast exam.
== END 2020-09-21 23:09 ==
LOC: ED 19:04
DX: F06.1 Catatonic disorder due to known physiological condition (principal); F99 Mental disorder, not otherwise specified
CPT/HCPCS: 36000; 36415; 51702; 70450; 80053; 80307; 81001; 83605; 84484; 85025; 85610; 85730; 93005; 93041; 94760; 99285; G0480

== ENCOUNTER 2020-09-22 00:37 | Observation (INO) | payer OTHER ==
--- NOTE | 2020-09-22 01:34 | ERPHSYRPT ---
- History of Present Illness Source: patient, EMS Exam Limitations: other (Pt poor historian) Patient Subjective Stated Complaint: Patient returned to ER by Scat 4 R/T [facility] stated they cannot take anyone with F/C. [facility] stated they would not take him back if he had any bleeding. Triage Nursing Assessment: Patient arrived on gurney per EMS. Patient A/O times 4. Patient noted with leg bag on left leg upon assessment. Moderate amounts of hematuria noted. Physician History: 30 yo wm just transferred to the [facility] after an JOSE was sent back to the ER due to having a Duran catheter. [facility] was told in report that pt had a catheter and accepted pt. Pt pulled his catheter in ER causing bleeding during his first visit, so Duran was put back in per nursing wo difficulty. Duran irrigated wo difficulty before transfer. Pt in NAD upon return to ER w minor bleeding around catheter. He had a small dorsal slit at urethral opening w small amount of bleeding. Timing/Duration: hour(s) (90 min) Activites at Onset: rest Quality: other (No pain) Pain Radiation: none Severity of Pain-Max: none Severity of Pain-Current: none Modifying Factors: Improves With: nothing Associated Symptoms: denies symptoms Prior abdominal problems: none Sexual intercourse history: non-contributory Allergies/Adverse Reactions: No Known Drug Allergies Allergy (Verified 09/21/20 19:42) Home Medications: Buspirone HCl [Buspar] 5 mg PO BID 08/07/19 [History] Cholecalciferol (Vitamin D3) [Vitamin D3] 1,000 unit PO DAILY 09/01/19 [History] Benazepril HCl 10 mg PO DAILY 12/16/19 [History] Carvedilol 12.5 mg [Coreg 12.5 mg] 12.5 mg PO BID 12/16/19 [History] Omeprazole 40 mg PO DAILY 12/16/19 [History] Simvastatin 10 mg PO DAILY 12/16/19 [History] Hx Tetanus, Diphtheria Vaccination/Date Given: Yes Hx Influenza Vaccination/Date Given: No Hx Pneumococcal Vaccination/Date Given: No Immunizations Up to Date: Yes Travel Risk - International Travel Have you traveled outside of the country in past 3 weeks: No - Coronavirus Screening Are you exhibiting any of the following symptoms?: No Close contact with a COVID-19 positive Pt in past 14-21 Days: No - Past Medical History Pertinent Past Medical History: Yes Neurological History: No Pertinent History ENT History: No Pertinent History Cardiac History: Hypertension Respiratory History: No Pertinent History Endocrine Medical History: No Pertinent History Musculoskeletal History: No Pertinent History GI Medical History: GERD History: No Pertinent History Psycho-Social History: Anxiety, Bipolar, Depression, Other Male Reproductive Disorders: No Pertinent History Other Medical History: PSYCH HX - Past Surgical History Past Surgical History: Yes Neuro Surgical History: No Pertinent History Cardiac: No Pertinent History Respiratory: No Pertinent History Gastrointestinal: No Pertinent History Genitourinary: No Pertinent History Musculoskeletal: Other Male Surgical History: No Pertinent History Other Surgical History: pt states he had thumb surgery when he was a baby. - Social History Smoking Status: Never smoker Exposure to second hand smoke: No Drug Use: none Patient Lives Alone: No Significant Family History: no pertinent family hx - Review of Systems Constitutional: No Symptoms Eyes: No Symptoms Ears, Nose, & Throat: No Symptoms Respiratory: No Symptoms Cardiac: No Symptoms Abdominal/Gastrointestinal: No Symptoms Musculoskeletal: No Symptoms Skin: No Symptoms Neurological: No Symptoms Psychological: No Symptoms Endocrine: No Symptoms Hematologic/Lymphatic: No Symptoms Immunological/Allergic: No Symptoms - Nursing Vital Signs Nursing Vital Signs: Initial Vital Signs Temperature 97.8 F 09/22/20 01:00 Pulse Rate 95 H 09/22/20 01:00 Respiratory Rate 18 09/22/20 01:00 Blood Pressure 139/89 09/22/20 01:00 O2 Sat by Pulse Oximetry 95 09/22/20 01:00 Pain Scale Pain Intensity 0 - Physical Exam General Appearance: no apparent distress Eye Exam: PERRL/EOMI, eyes nml inspection Ears, Nose, Throat Exam: normal ENT inspection, TMs normal, pharynx normal, mois t mucous membranes, pharyngeal erythema Neck Exam: normal inspection, non-tender, supple, full range of motion, No meningismus, No mass, No Brudzinski, No Kernig's, No subcutaneous emphysema Respiratory Exam: normal breath sounds, lungs clear, airway intact, No respiratory distress Cardiovascular Exam: regular rate/rhythm, normal heart sounds, normal peripheral pulses Gastrointestinal/Abdomen Exam: soft, normal bowel sounds, No tenderness Male Genital Exam: bleeding (Duran catheter in place w small amount of bleeding from dorsal slit/Duran irrigates well per nursing) Back Exam: normal inspection Extremity Exam: normal inspection, normal range of motion Neurologic Exam: alert, oriented x 3, cooperative, death surveys coder II-XII nml as tested, nml cerebellar function, sensation nml, No motor deficits, No sensory deficit Skin Exam: normal color, warm, dry, No rash Lymphatic Exam: No adenopathy SpO2 Interpretation: normal SpO2: 95 O2 Delivery: Room Air - Course Nursing assessment & vital signs reviewed: Yes Ordered Tests: Active Orders 24 hr Category Date Time Status Heart-Healthy Diet Diet 09/22/20 Breakfast Active CBC W DIFF AM.LAB Lab 09/22/20 04:00 Ordered Transfer Order Routine Transfer 09/22/20 Completed - Progress Progress Note: 09/22/20 01:37 Dorsal slit on penis repaired due to continued bleeding/Prepped w Hibiclens/Anes w 1% Lido wo epi/5.0 Ethilon placed x2 w good hemostasis from slit 09/22/20 01:48 Pt w continued small amount of blood around catheter, so decision to keep catheter in place and obs made. Tried to reach Dr. Torres x3 wo success, so Dr. Fuentes called and accepted pt. Discussed with : Jade Counseled pt/family regarding: need for follow-up - Departure Departure Disposition: Observation Clinical Impression: genital bleeding due to traumatic duran Condition: Stable Critical Care Time: No
[2020-09-22 05:17] LABS: BASOPHIL % 0.2 % (0.0-0.4); Basophil (Absolute #) 0.03 (0-0.4); Eosinophil % 0.8 % (0.00-5.0); Eosinophil (Absolute #) 0.11 (0-0.5); Hematocrit 47.7 % (42-50); Hemoglobin 15.4 gm/dl (12.5-18.0); Lymphocyte (Absolute #) 1.87 (1.0-4.6); Lymphocytes % 13.1 % (24.0-44.0); Mean Cell Volume 93.7 fl (78-100); Mean Corpuscular Hemoglobin 30.3 pg (26-32); Mean Corpuscular Hgb Concent. 32.3 g/dl (32-36); Mean Platelet Volume 12.3 fl (7.5-11.0); Monocyte (Absolute #) 0.94 (0.0-1.3); Monocytes % 6.6 % (0.0-12.0); Neutrophil % 79.3 % (36.0-66.0); Platelet Count 177 K/mm3 (150-450); Red Blood Count 5.09 M/mm3 (4.1-5.6); Red Cell Distribution Width 14.1 % (11.5-14.0); White Blood Count 14.3 K/mm3 (4.0-10.5)
[2020-09-22 07:02] LABS: Slide Review 1 YES
[2020-09-22 07:34] VITALS: BP 140/73; PULSE 82; O2SAT 92
--- NOTE | 2020-09-30 09:07 | SSS ---
DISCHARGE DIAGNOSES: 1) ACUTE PARANOIA. 2) SUICIDAL IDEATION. HOSPITAL COURSE: The patient is a 30 year old white male patient who presented to the emergency room. He was evaluated and found to be concerning for possible harm to himself. The emergency room physician had placed a Tolentino catheter. However the patient was uncooperative and actually pulled out his Tolentino catheter. After referring with the outpatient management people at [facility] with Tolentino replaced he reached their facility door and was actually returned to our facility having been turned down for the possibility of him hanging himself with the Tolentino catheter. In our facility I examined him and he appeared to have the Tolentino catheter in place free of any blood at this time flowing freely with normal urine. The Tolentino catheter was discontinued as this was the only reason the patient was unable to go to the [facility]. He was discharged and transferred back to their facility to be inpatient as the patient is currently emergency jail. He is medically stable and was discharged back to their facility again to be admitted for inpatient management.
== END 2020-09-22 09:45 ==
LOC: ED 00:37 → MED SURG 02:05
PROVIDERS: ADMIT General Practice; ATTEND General Practice
DX: F22 Delusional disorders (principal); R45.851 Suicidal ideations; F31.9 Bipolar disorder, unspecified; T83.83XA Hemorrhage due to genitourinary prosthetic devices, implants and grafts, initial encounter; R31.9 Hematuria, unspecified; I10 Essential (primary) hypertension; Z79.899 Other long term (current) drug therapy
CPT/HCPCS: 36000; 36415; 51702; 70450; 80048; 80053; 80061; 80307; 81001; 83036; 83605; 83721; 84450; 84484; 85025; 85610; 85730; 93005; 93041; 94760; 99285; G0378; G0480

== ENCOUNTER 2021-04-14 06:54 | Emergency (ER) | payer OTHER ==
[2021-04-14 07:08] VITALS: BP 139/73; PULSE 92; O2SAT 96
--- NOTE | 2021-04-14 07:27 | ERPHSYRPT ---
- History of Present Illness Time Seen by Provider: 04/14/21 07:15 Source: patient, family Patient Subjective Stated Complaint: Pt states that his pulse was in the 150's prior to coming to the hospital Triage Nursing Assessment: Pt brought to the ER by his mother, khanh llanes, denies pain, asymptomatic, pulses normal, sinus rhythm, doesn't appear to be in any distress Physician History: This is a morbidly obese 31-year-old white male patient of Dr. Torres who presents with an episode of heart rate in the 150s at home prior to arrival this morning. Patient denies chest pain but he did have an episode of right arm pain that resolved prior to arrival. Patient's father has a history of atrial fibrillation. The patient himself has no documented cardiac history. He does not have a binder fixer. Patient has a history of gastroesophageal reflux disease, elevated cholesterol, hypertension, anxiety, and depression. Patient admits that he is under a lot of stress trying to get a job. Timing/Duration: today Activities at Onset: none Quality: other (Rapid heart rate) Location: other (No chest pain) Severity of Pain-Max: none Severity of Pain-Current: none Modifying Factors: Improves With: nothing Nitro Today/Relief: no nitro taken today Aspirin Treatment Today: no aspirin today Associated Symptoms: denies symptoms Allergies/Adverse Reactions: No Known Drug Allergies Allergy (Verified 04/14/21 07:08) Home Medications: Benazepril HCl 20 mg PO DAILY 12/16/19 [History] Carvedilol 12.5 mg [Coreg 12.5 mg] 12.5 mg PO BID 12/16/19 [History] Omeprazole 40 mg PO DAILY 12/16/19 [History] Bupropion HCl Xl 150 mg [Wellbutrin XL 150 MG] 150 mg PO DAILY 04/14/21 [History] Fluvoxamine Maleate 50 mg PO DAILY 04/14/21 [History] Hydrochlorothiazide 25 mg [hydroDIURIL 25 MG] 25 mg PO DAILY 04/14/21 [History] Lorazepam 0.5 mg [Ativan 0.5 MG] 0.5 mg PO BID 04/14/21 [History] Paliperidone Palmitate [Invega Sustenna 156 mg] 1 syringe IM WEEKLY 04/14/21 [History] Tamsulosin HCl 0.4 mg PO DAILY 04/14/21 [History] Trazodone HCl [Desyrel] 200 mg PO HS 04/14/21 [History] Hx Tetanus, Diphtheria Vaccination/Date Given: Yes Hx Influenza Vaccination/Date Given: No Hx Pneumococcal Vaccination/Date Given: No Travel Risk - International Travel Have you traveled outside of the country in past 3 weeks: No - Coronavirus Screening Are you exhibiting any of the following symptoms?: No Close contact with a COVID-19 positive Pt in past 14-21 Days: No - Vaccine Status Have you recieved a Covid-19 vaccination: No - Review of Systems Constitutional: No Symptoms Eyes: No Symptoms Ears, Nose, & Throat: No Symptoms Respiratory: No Symptoms Cardiac: Palpitations, No Chest Pain Abdominal/Gastrointestinal: No Symptoms Genitourinary Symptoms: No Symptoms Musculoskeletal: No Symptoms Skin: No Symptoms Neurological: No Symptoms Psychological: No Symptoms Endocrine: No Symptoms Hematologic/Lymphatic: No Symptoms Immunological/Allergic: No Symptoms All Other Systems: Reviewed and Negative - Past Medical History Pertinent Past Medical History: Yes Neurological History: No Pertinent History ENT History: No Pertinent History Cardiac History: Hypertension Respiratory History: No Pertinent History Endocrine Medical History: No Pertinent History Musculoskeletal History: No Pertinent History GI Medical History: GERD History: No Pertinent History Psycho-Social History: Anxiety, Bipolar, Depression, Other Male Reproductive Disorders: No Pertinent History Other Medical History: PSYCH HX - Past Surgical History Past Surgical History: Yes Neuro Surgical History: No Pertinent History Cardiac: No Pertinent History Respiratory: No Pertinent History Gastrointestinal: No Pertinent History Genitourinary: No Pertinent History Musculoskeletal: Other Male Surgical History: No Pertinent History Other Surgical History: pt states he had thumb surgery when he was a baby. - Social History Smoking Status: Never smoker Exposure to second hand smoke: No Drug Use: none Patient Lives Alone: No Significant Family History: no pertinent family hx - Nursing Vital Signs Nursing Vital Signs: Initial Vital Signs Temperature 97.4 F 04/14/21 06:59 Pulse Rate 90 04/14/21 06:59 Blood Pressure 139/73 04/14/21 06:59 O2 Sat by Pulse Oximetry 96 04/14/21 06:59 Pain Scale Pain Intensity 0 - Physical Exam General Appearance: no apparent distress, alert, anxiety, obese Eye Exam: PERRL/EOMI, eyes nml inspection Ears, Nose, Throat Exam: normal ENT inspection, moist mucous membranes Neck Exam: normal inspection, non-tender, supple, full range of motion Respiratory Exam: normal breath sounds, lungs clear, airway intact, No chest tenderness, No respiratory distress Cardiovascular Exam: regular rate/rhythm, normal heart sounds, normal peripheral pulses Gastrointestinal/Abdomen Exam: soft, normal bowel sounds, No tenderness Rectal Exam: not done Back Exam: normal inspection, normal range of motion, No CVA tenderness Extremity Exam: normal inspection, normal range of motion, pelvis stable Neurologic Exam: alert, oriented x 3, cooperative, spinning operator II-XII nml as tested, depressed mood/affect Skin Exam: normal color, warm, dry Lymphatic Exam: No adenopathy SpO2 Interpretation: normal SpO2: 96 O2 Delivery: Room Air - Course Nursing assessment & vital signs reviewed: Yes EKG Interpreted by Me: RATE (86), Sinus Rhythm, NORMAL AXIS, NORMAL INTERVALS, NORMAL QRS, NORMAL ST-T, Other (No acute ischemic changes on today's EKG. There is no change from the comparison EKG performed on 09/21/2020) Ordered Tests: Active Orders 24 hr Category Date Time Status EKG-ER Only STAT Care 04/14/21 07:17 Active BMP Stat Lab 04/14/21 07:32 Completed CBC W DIFF Stat Lab 04/14/21 07:32 Completed D-DIMER QUANTITATIVE Stat Lab 04/14/21 07:32 Completed MAGNESIUM Stat Lab 04/14/21 07:32 Completed NT PRO BNP Stat Lab 04/14/21 07:32 Completed TROPONIN Q3H Lab 04/14/21 07:32 Completed TROPONIN Q3H Lab 04/14/21 10:30 Ordered TROPONIN Q3H Lab 04/14/21 13:30 Ordered TROPONIN Q3H Lab 04/14/21 16:30 Ordered TROPONIN Q3H Lab 04/14/21 19:30 Ordered Lab/Rad Data: Laboratory Result Diagrams 04/14/21 07:32 04/14/21 07:32 Laboratory Results 04/14/21 04/14/21 04/14/21 Range/Units 07:32 07:32 07:32 WBC (4.0-10.5) K/mm3 RBC (4.1-5.6) M/mm3 Hgb (12.5-18.0) gm/dl Hct (42-50) % MCV (78-100) fl MCH (26-32) pg MCHC (32-36) g/dl RDW (11.5-14.0) % Plt Count (150-450) K/mm3 MPV (7.5-11.0) fl Gran % (36.0-66.0) % Eos # (Auto) (0-0.5) Absolute Lymphs (auto) (1.0-4.6) Absolute Monos (auto) (0.0-1.3) Lymphocytes % (24.0-44.0) % Monocytes % (0.0-12.0) % Eosinophils % (0.00-5.0) % Basophils % (0.0-0.4) % Absolute Granulocytes (1.4-6.9) Basophils # (0-0.4) D-Dimer 460 (215-500) ng/mL Sodium 138 (137-145) mmol/L Potassium 3.9 (3.5-5.1) mmol/L Chloride 103 (98-107) mmol/L Carbon Dioxide 27 (22-30) mmol/L Anion Gap 12.7 (5-15) MEQ/L BUN 15 (9-20) mg/dL Creatinine 0.79 (0.66-1.25) mg/dL Estimated GFR > 60.0 ML/MIN Glucose 137 H (74-106) mg/dL Calcium 9.3 (8.4-10.2) mg/dL Magnesium 2.0 (1.6-2.3) mg/dL Troponin I < 0.012 (0.000-0.034) ng/mL NT-Pro-B Natriuret Pep 12.0 (0-450) pg/mL 04/14/ Range/Units 07:32 WBC 9.6 (4.0-10.5) K/mm3 RBC 5.27 (4.1-5.6) M/mm3 Hgb 15.4 (12.5-18.0) gm/dl Hct 48.4 (42-50) % MCV 91.8 (78-100) fl MCH 29.2 (26-32) pg MCHC 31.8 L (32-36) g/dl RDW 13.4 (11.5-14.0) % Plt Count 187 (150-450) K/mm3 MPV 10.6 (7.5-11.0) fl Gran % 67.1 H (36.0-66.0) % Eos # (Auto) 0.08 (0-0.5) Absolute Lymphs (auto) 2.00 (1.0-4.6) Absolute Monos (auto) 1.05 (0.0-1.3) Lymphocytes % 20.8 L (24.0-44.0) % Monocytes % 10.9 (0.0-12.0) % Eosinophils % 0.8 (0.00-5.0) % Basophils % 0.4 (0.0-0.4) % Absolute Granulocytes 6.44 (1.4-6.9) Basophils # 0.04 (0-0.4) D-Dimer (215-500) ng/mL Sodium (137-145) mmol/L Potassium (3.5-5.1) mmol/L Chloride (98-107) mmol/L Carbon Dioxide (22-30) mmol/L Anion Gap (5-15) MEQ/L BUN (9-20) mg/dL Creatinine (0.66-1.25) mg/dL Estimated GFR ML/MIN Glucose (74-106) mg/dL Calcium (8.4-10.2) mg/dL Magnesium (1.6-2.3) mg/dL Troponin I (0.000-0.034) ng/mL NT-Pro-B Natriuret Pep (0-450) pg/mL - Progress Progress: re-examined, unchanged Air Movement: good Blood Culture(s) Obtained: No Antibiotics given: No - Departure Departure Disposition: Home Clinical Impression: Intermittent palpitations Condition: Stable Critical Care Time: No Referrals: SEPIDEH TORRES [Primary Care Provider] - Additional Instructions: Continue all your medications as prescribed. Call your primary care doctor and a binder fixer for further management.
[2021-04-14 07:43] LABS: Absolute Neutrophil Ct (ANC) 6.44 (1.4-6.9); BASOPHIL % 0.4 % (0.0-0.4); Basophil (Absolute #) 0.04 (0-0.4); Eosinophil % 0.8 % (0.00-5.0); Eosinophil (Absolute #) 0.08 (0-0.5); Hematocrit 48.4 % (42-50); Hemoglobin 15.4 gm/dl (12.5-18.0); Lymphocytes % 20.8 % (24.0-44.0); Mean Cell Volume 91.8 fl (78-100); Mean Corpuscular Hemoglobin 29.2 pg (26-32); Mean Corpuscular Hgb Concent. 31.8 g/dl (32-36); Mean Platelet Volume 10.6 fl (7.5-11.0); Monocyte (Absolute #) 1.05 (0.0-1.3); Monocytes % 10.9 % (0.0-12.0); Neutrophil % 67.1 % (36.0-66.0); Platelet Count 187 K/mm3 (150-450); Red Blood Count 5.27 M/mm3 (4.1-5.6); Red Cell Distribution Width 13.4 % (11.5-14.0); White Blood Count 9.6 K/mm3 (4.0-10.5)
[2021-04-14 08:01] LABS: ANION GAP 12.7 MEQ/L (5-15); BLOOD UREA NITROGEN 15 mg/dL (9-20); CHLORIDE 103 mmol/L (98-107); Calcium 9.3 mg/dL (8.4-10.2); Carbon Dioxide 27 mmol/L (22-30); Creatinine 1 0.79 mg/dL (0.66-1.25); EST GLOMERULAR FILTRATION RATE > 60.0 ML/MIN; Glucose 137 mg/dL (74-106); Potassium 3.9 mmol/L (3.5-5.1); SODIUM 138 mmol/L (137-145)
== END 2021-04-14 08:24 | disposition home or self-care (01) ==
LOC: ED 06:54
DX: R00.2 Palpitations (principal)
CPT/HCPCS: 36415; 80048; 83735; 83880; 84484; 85025; 85379; 93005; 99284

== ENCOUNTER 2021-04-18 19:47 | Emergency (ER) | payer OTHER ==
[2021-04-18 20:20] LABS: Absolute Neutrophil Ct (ANC) 5.44 (1.4-6.9); BASOPHIL % 0.3 % (0.0-0.4); Basophil (Absolute #) 0.03 (0-0.4); Eosinophil % 0.9 % (0.00-5.0); Eosinophil (Absolute #) 0.08 (0-0.5); Hemoglobin 15.1 gm/dl (12.5-18.0); Lymphocyte (Absolute #) 2.72 (1.0-4.6); Lymphocytes % 29.1 % (24.0-44.0); Mean Cell Volume 91.3 fl (78-100); Mean Corpuscular Hemoglobin 29.3 pg (26-32); Mean Corpuscular Hgb Concent. 32.1 g/dl (32-36); Mean Platelet Volume 10.5 fl (7.5-11.0); Monocyte (Absolute #) 1.07 (0.0-1.3); Monocytes % 11.5 % (0.0-12.0); Neutrophil % 58.2 % (36.0-66.0); Platelet Count 211 K/mm3 (150-450); Red Blood Count 5.15 M/mm3 (4.1-5.6); Red Cell Distribution Width 13.5 % (11.5-14.0); White Blood Count 9.3 K/mm3 (4.0-10.5)
[2021-04-18 20:31] LABS: ALBUMIN 4.5 g/dL (3.5-5.0); ALKALINE PHOSPHATASE 45 U/L (38-126); ANION GAP 11.5 MEQ/L (5-15); BLOOD UREA NITROGEN 17 mg/dL (9-20); CHLORIDE 101 mmol/L (98-107); Calcium 9.8 mg/dL (8.4-10.2); Carbon Dioxide 31 mmol/L (22-30); EST GLOMERULAR FILTRATION RATE > 60.0 ML/MIN; ETHYL ALCOHOL < 10 mg/dL (0-10); Glucose 105 mg/dL (74-106); MAGNESIUM 2.1 mg/dL (1.6-2.3); Potassium 3.6 mmol/L (3.5-5.1); SGOT/AST 23 U/L (17-59); SGPT/ALT 26 U/L (0-50); SODIUM 140 mmol/L (137-145); Total Protein 7.4 g/dL (6.3-8.2)
--- NOTE | 2021-04-18 20:56 | ERPHSYRPT ---
- History of Present Illness Time Seen by Provider: 04/18/21 19:55 Source: patient Exam Limitations: no limitations Patient Subjective Stated Complaint: mom states that she thinks pt has been in afib according to their wrist bp monitor. pt denies chest pain, sob, or palpit ations. mom states that dad has afib so she was concerned that the pt did as well Triage Nursing Assessment: pt alert and oriented, answers questions approp. pt ambulatory with steady gait noted. respiraitons nonlabored with lungs cta. sinus rhythm at 90 on monitor. peripheral pulses wnl. Physician History: Patient is a 32-year-old male presents to our ED with his mother for evaluation of suspected A. fib. Mother states patient's wrist monitor suggested atrial fibrillation. Patient otherwise asymptomatic. Patient had no complaints. Mother states that patient's father has a history of A. fib. Mother became concerned and brought patient to our ED. Vitals are normal. No atrial fibrillation observed on EKG. Patient as stated above has absolutely no complaints. Timing/Duration: today Severity: mild Modifying Factors: Improves With: nothing Associated Symptoms: denies symptoms Allergies/Adverse Reactions: No Known Drug Allergies Allergy (Verified 04/14/21 07:08) Home Medications: Benazepril HCl 20 mg PO DAILY 12/16/19 [History] Carvedilol 12.5 mg [Coreg 12.5 mg] 12.5 mg PO BID 12/16/19 [History] Omeprazole 40 mg PO DAILY 12/16/19 [History] Bupropion HCl Xl 150 mg [Wellbutrin XL 150 MG] 150 mg PO DAILY 04/14/21 [History] Fluvoxamine Maleate 50 mg PO DAILY 04/14/21 [History] Hydrochlorothiazide 25 mg [hydroDIURIL 25 MG] 25 mg PO DAILY 04/14/21 [History] Lorazepam 0.5 mg [Ativan 0.5 MG] 0.5 mg PO BID 04/14/21 [History] Paliperidone Palmitate [Invega Sustenna 156 mg] 1 syringe IM WEEKLY 04/14/21 [History] Tamsulosin HCl 0.4 mg PO DAILY 04/14/21 [History] Trazodone HCl [Desyrel] 200 mg PO HS 04/14/21 [History] Hx Tetanus, Diphtheria Vaccination/Date Given: Yes Hx Influenza Vaccination/Date Given: Yes Hx Pneumococcal Vaccination/Date Given: No Immunizations Up to Date: Yes Travel Risk - International Travel Have you traveled outside of the country in past 3 weeks: No - Coronavirus Screening Are you exhibiting any of the following symptoms?: No Close contact with a COVID-19 positive Pt in past 14-21 Days: No - Vaccine Status Have you recieved a Covid-19 vaccination: No - Review of Systems Constitutional: No Symptoms, No Fever, No Chills Eyes: No Symptoms Ears, Nose, & Throat: No Symptoms Respiratory: No Symptoms, No Cough, No Dyspnea Cardiac: No Symptoms, No Chest Pain, No Edema, No Syncope Abdominal/Gastrointestinal: No Symptoms, No Abdominal Pain, No Nausea, No Vomiting, No Diarrhea Genitourinary Symptoms: No Symptoms, No Dysuria Musculoskeletal: No Symptoms, No Back Pain, No Neck Pain Skin: No Symptoms, No Rash Neurological: No Symptoms, No Dizziness, No Focal Weakness, No Sensory Changes Psychological: No Symptoms Endocrine: No Symptoms Hematologic/Lymphatic: No Symptoms Immunological/Allergic: No Symptoms All Other Systems: Reviewed and Negative - Past Medical History Pertinent Past Medical History: Yes Neurological History: No Pertinent History ENT History: No Pertinent History Cardiac History: Hypertension Respiratory History: No Pertinent History Endocrine Medical History: No Pertinent History Musculoskeletal History: No Pertinent History GI Medical History: GERD History: No Pertinent History Psycho-Social History: Anxiety, Bipolar, Depression, Other Male Reproductive Disorders: No Pertinent History Other Medical History: PSYCH HX - Past Surgical History Past Surgical History: Yes Neuro Surgical History: No Pertinent History Cardiac: No Pertinent History Respiratory: No Pertinent History Gastrointestinal: No Pertinent History Genitourinary: No Pertinent History Musculoskeletal: Other Male Surgical History: No Pertinent History Other Surgical History: pt states he had thumb surgery when he was a baby. - Social History Smoking Status: Never smoker Exposure to second hand smoke: No Drug Use: none Patient Lives Alone: No Significant Family History: no pertinent family hx - Nursing Vital Signs Nursing Vital Signs: Initial Vital Signs Temperature 98.3 F 04/18/21 19:48 Pulse Rate 90 04/18/21 19:48 Respiratory Rate 20 04/18/21 19:48 O2 Sat by Pulse Oximetry 95 04/18/21 19:48 Pain Scale Pain Intensity 0 - Physical Exam General Appearance: no apparent distress, alert Eye Exam: PERRL/EOMI, eyes nml inspection Ears, Nose, Throat Exam: normal ENT inspection, TMs normal, pharynx normal, moist mucous membranes Neck Exam: normal inspection, non-tender, supple, full range of motion Respiratory Exam: normal breath sounds, lungs clear, No respiratory distress Cardiovascular Exam: regular rate/rhythm, normal heart sounds, normal peripheral pulses Gastrointestinal/Abdomen Exam: soft, normal bowel sounds, No tenderness, No mass Back Exam: normal inspection, normal range of motion, No CVA tenderness, No vertebral tenderness Extremity Exam: normal inspection, normal range of motion, pelvis stable Neurologic Exam: alert, oriented x 3, cooperative, normal mood/affect, nml cerebellar function, nml station & gait, sensation nml, No motor deficits Skin Exam: normal color, warm, dry, No rash Lymphatic Exam: No adenopathy SpO2 Interpretation: normal SpO2: 97 O2 Delivery: Room Air - Course Nursing assessment & vital signs reviewed: Yes EKG Interpreted by Me: RATE, Sinus Rhythm, NORMAL AXIS, NORMAL INTERVALS - Radiology Exams Chest X-ray Interpretation: Interpreted by me (Normal heart lungs and bony thorax. No acute pathology observed.) Ordered Tests: Active Orders 24 hr Category Date Time Status Ship Fastener STAT Care 04/18/21 19:55 Active EKG-ER Only STAT Care 04/18/21 19:54 Active IV Insertion STAT Care 04/18/21 19:54 Active Pulse Oximetry (ED) STAT Care 04/18/21 19:54 Active CHEST 1 VIEW (PORTABLE) Stat Exams 04/18/21 19:55 Taken CBC W DIFF Stat Lab 04/18/21 20:10 Completed CMP Stat Lab 04/18/21 20:10 Completed D-DIMER QUANTITATIVE Stat Lab 04/18/21 20:10 Completed ETHYL ALCOHOL Stat Lab 04/18/21 20:10 Completed MAGNESIUM Stat Lab 04/18/21 20:10 Completed TROPONIN Q3H Lab 04/18/21 20:10 Completed TROPONIN Q3H Lab 04/18/21 22:00 Completed TROPONIN Q3H Lab 04/19/21 02:00 Ordered TROPONIN Q3H Lab 04/19/21 05:00 Ordered TROPONIN Q3H Lab 04/19/21 08:00 Ordered Lab/Rad Data: Laboratory Result Diagrams 04/18/21 20:10 04/18/21 20:10 Laboratory Results 04/18/21 04/18/21 04/18/21 Range/Units 22:00 20:10 20:10 WBC (4.0-10.5) K/mm3 RBC (4.1-5.6) M/mm3 Hgb (12.5-18.0) gm/dl Hct (42-50) % MCV (78-100) fl MCH (26-32) pg MCHC (32-36) g/dl RDW (11.5-14.0) % Plt Count (150-450) K/mm3 MPV (7.5-11.0) fl Gran % (36.0-66.0) % Eos # (Auto) (0-0.5) Absolute Lymphs (auto) (1.0-4.6) Absolute Monos (auto) (0.0-1.3) Lymphocytes % (24.0-44.0) % Monocytes % (0.0-12.0) % Eosinophils % (0.00-5.0) % Basophils % (0.0-0.4) % Absolute Granulocytes (1.4-6.9) Basophils # (0-0.4) D-Dimer 480 (215-500) ng/mL Sodium (137-145) mmol/L Potassium (3.5-5.1) mmol/L Chloride (98-107) mmol/L Carbon Dioxide (22-30) mmol/L Anion Gap (5-15) MEQ/L BUN (9-20) mg/dL Creatinine (0.66-1.25) mg/dL Estimated GFR ML/MIN Glucose (74-106) mg/dL Calcium (8.4-10.2) mg/dL Magnesium (1.6-2.3) mg/dL Total Bilirubin (0.2-1.3) mg/dL AST (17-59) U/L ALT (0-50) U/L Alkaline Phosphatase (38-126) U/L Troponin I < 0.012 < 0.012 (0.000-0.034) ng/mL Serum Total Protein (6.3-8.2) g/dL Albumin (3.5-5.0) g/dL Ethyl Alcohol (0-10) mg/dL 04/18/21 04/18/21 Range/Units 20:10 20:10 WBC 9.3 (4.0-10.5) K/mm3 RBC 5.15 (4.1-5.6) M/mm3 Hgb 15.1 (12.5-18.0) gm/dl Hct 47.0 (42-50) % MCV 91.3 (78-100) fl MCH 29.3 (26-32) pg MCHC 32.1 (32-36) g/dl RDW 13.5 (11.5-14.0) % Plt Count 211 (150-450) K/mm3 MPV 10.5 (7.5-11.0) fl Gran % 58.2 (36.0-66.0) % Eos # (Auto) 0.08 (0-0.5) Absolute Lymphs (auto) 2.72 (1.0-4.6) Absolute Monos (auto) 1.07 (0.0-1.3) Lymphocytes % 29.1 (24.0-44.0) % Monocytes % 11.5 (0.0-12.0) % Eosinophils % 0.9 (0.00-5.0) % Basophils % 0.3 (0.0-0.4) % Absolute Granulocytes 5.44 (1.4-6.9) Basophils # 0.03 (0-0.4) D-Dimer (215-500) ng/mL Sodium 140 (137-145) mmol/L Potassium 3.6 (3.5-5.1) mmol/L Chloride 101 (98-107) mmol/L Carbon Dioxide 31 H (22-30) mmol/L Anion Gap 11.5 (5-15) MEQ/L BUN 17 (9-20) mg/dL Creatinine 0.90 (0.66-1.25) mg/dL Estimated GFR > 60.0 ML/MIN Glucose 105 (74-106) mg/dL Calcium 9.8 (8.4-10.2) mg/dL Magnesium 2.1 (1.6-2.3) mg/dL Total Bilirubin 0.40 (0.2-1.3) mg/dL AST 23 (17-59) U/L ALT 26 (0-50) U/L Alkaline Phosphatase 45 (38-126) U/L Troponin I (0.000-0.034) ng/mL Serum Total Protein 7.4 (6.3-8.2) g/dL Albumin 4.5 (3.5-5.0) g/dL Ethyl Alcohol < 10 (0-10) mg/dL - Progress Progress: unchanged Progress Note: Patient reassessed. He remains asymptomatic. Work-up essentially nonremarkable. Labs unremarkable. Troponin negative x2. Chest x-ray within normal limits. Vitals have been stable throughout his course in our ED. No indication for further work-up at this time. Will discharge home. Patient and mother updated. They agree to follow-up with primary care doctor within 48 hours for reevaluation. 04/18/21 22:34 04/18/21 22:35 Counseled pt/family regarding: lab results, diagnosis, need for follow-up, rad results - Departure Departure Disposition: Home Clinical Impression: Encounter for medical screening examination Condition: Stable Critical Care Time: No Referrals: SEPIDEH ALLAN [Primary Care Provider] - Additional Instructions: Discharge/Care Plan FANY DIAZ was seen on 04/18/21 in the Emergency Room. The patient was counseled regarding Diagnosis,Lab results, Imaging studies, need for follow up and when to return to the Emergency Room. Prescriptions given: Discharge Note I have spoken with the patient and/or caregivers. I have explained the patient's condition, diagnosis and treatment plan based on the information available to me at this time. I have answered the patient's and/or caregiver's questions and addressed any concerns. The patient and/or caregivers have as good understanding of the patient's diagnosis, condition and treatment plan as can be expected at this point. The vital signs have been stable. The patient's condition is stable and appropriate for discharge from the emergency department. The patient will pursue further outpatient evaluation with the primary care physician or other designated or consulting physician as outlined in the discharge instructions. The patient and/or caregivers are agreeable to this plan of care and follow-up instructions have been explained in detail. The patient and/or caregivers have received these instruction. The patient/and or caregivers are aware that any significant change in condition or worsening of symptoms should prompt an immediate return to this or the closest emergency department or call 911.
[2021-04-18 22:11] VITALS: BP 144/98; PULSE 85
[2021-04-18 22:36] VITALS: O2SAT 97
--- NOTE | 2021-04-19 08:44 | XRAY ---
Indication: Chest pain. Comparison: December 16, 2019. Portable chest again demonstrates normal heart, lungs, and bony thorax.
== END 2021-04-18 22:44 | disposition home or self-care (01) ==
LOC: ED 19:47
DX: Z13.9 Encounter for screening, unspecified (principal)
CPT/HCPCS: 36000; 36415; 71045; 80053; 83735; 84484; 85025; 85379; 93005; 93041; 94760; 99284; G0480; 80307

== ENCOUNTER 2021-08-24 16:41 | Emergency (ER) | payer OTHER ==
[2021-08-24 18:04] VITALS: O2SAT 96
[2021-08-24] MEDS ORDERED: Bicillin L-A 1.2 Mu/2ML SYRINGE IM ONE ×2 (18:29→18:34)
[2021-08-24] MEDS ORDERED: DECADRON 10MG INJ. IM ONE (18:29)
[2021-08-24] MEDS ORDERED: DECADRON 10MG INJ. ONE (18:33)
--- NOTE | 2021-08-24 18:36 | ERPHSYRPT ---
- History of Present Illness Source: patient Exam Limitations: no limitations Patient Subjective Stated Complaint: Pt states "I have had a sore throat for the past week, I went to [facility] and had labs drawn and checked for strep but I do not feel any better." Triage Nursing Assessment: Pt presented alert and oriented X 3, skin pwd pt ambulates with an upright steady gait, able to speak in clear full senences pt in no apparent respiratory distress. Pt in no apaprent respiratory distress. Physician History: 31 yo obese wm w St x1wk/mild MARTINEZ wo cough/N/V/D/fever. Pt went to clinic today and was neg for strep. CV19 test not done, and pt is not vaccinated. Timing/Duration: other (1 wk) Cough Quality/Degree: no cough Possible Cause: no prior episodes Modifying Factors: Improves With: nothing Associated Symptoms: headache, No fever, No chills, No chest pain/soreness, No cough, No dizziness, No earache, No facial pain Allergies/Adverse Reactions: No Known Drug Allergies Allergy (Verified 04/14/21 07:08) Home Medications: Benazepril HCl 20 mg PO DAILY 12/16/19 [History] Carvedilol 12.5 mg [Coreg 12.5 mg] 12.5 mg PO BID 12/16/19 [History] Bupropion HCl Xl 150 mg [Wellbutrin XL 150 MG] 150 mg PO DAILY 04/14/21 [History] Hydrochlorothiazide 25 mg [hydroDIURIL 25 MG] 25 mg PO DAILY 04/14/21 [History] Hx Tetanus, Diphtheria Vaccination/Date Given: No Hx Influenza Vaccination/Date Given: Yes Hx Pneumococcal Vaccination/Date Given: No Immunizations Up to Date: Yes Travel Risk - International Travel Have you traveled outside of the country in past 3 weeks: No - Coronavirus Screening Are you exhibiting any of the following symptoms?: No Close contact with a COVID-19 positive Pt in past 14-21 Days: No - Vaccine Status Have you recieved a Covid-19 vaccination: No - Review of Systems Constitutional: No Symptoms Eyes: No Symptoms Ears, Nose, & Throat: No Symptoms, Nose Congestion Respiratory: No Symptoms Cardiac: No Symptoms Abdominal/Gastrointestinal: No Symptoms Musculoskeletal: No Symptoms Skin: No Symptoms Neurological: No Symptoms Psychological: No Symptoms Endocrine: No Symptoms Hematologic/Lymphatic: No Symptoms Immunological/Allergic: No Symptoms - Past Medical History Pertinent Past Medical History: Yes Neurological History: No Pertinent History ENT History: No Pertinent History Cardiac History: Hypertension Respiratory History: No Pertinent History Endocrine Medical History: No Pertinent History Musculoskeletal History: No Pertinent History GI Medical History: GERD History: No Pertinent History Psycho-Social History: Anxiety, Bipolar, Depression, Other Male Reproductive Disorders: No Pertinent History Other Medical History: PSYCH HX - Past Surgical History Past Surgical History: Yes Neuro Surgical History: No Pertinent History Cardiac: No Pertinent History Respiratory: No Pertinent History Gastrointestinal: No Pertinent History Genitourinary: No Pertinent History Musculoskeletal: Other Male Surgical History: No Pertinent History Other Surgical History: pt states he had thumb surgery when he was a baby. - Social History Smoking Status: Never smoker Exposure to second hand smoke: Yes Drug Use: none Patient Lives Alone: No Significant Family History: no pertinent family hx - Nursing Vital Signs Nursing Vital Signs: Initial Vital Signs Temperature 97.3 F 08/24/21 17:50 Pulse Rate 88 08/24/21 17:50 Respiratory Rate 20 08/24/21 17:50 Blood Pressure 162/91 08/24/21 17:50 O2 Sat by Pulse Oximetry 96 08/24/21 17:50 Pain Scale Pain Intensity 0 Hypertensive - Physical Exam General Appearance: no apparent distress Eye Exam: PERRL/EOMI, eyes nml inspection Ears, Nose, Throat Exam: normal ENT inspection, TMs normal, pharynx normal, moist mucous membranes Neck Exam: normal inspection, non-tender, supple, full range of motion, No meningismus, No mass, No Brudzinski, No Kernig's Respiratory Exam: normal breath sounds, lungs clear, airway intact, No respiratory distress Cardiovascular Exam: regular rate/rhythm, normal heart sounds, normal peripheral pulses, No murmur Gastrointestinal/Abdomen Exam: soft, normal bowel sounds, No tenderness Back Exam: normal inspection, normal range of motion, No CVA tenderness Extremity Exam: normal inspection, normal range of motion Neurologic Exam: alert, oriented x 3, cooperative, internal audit director II-XII nml as tested, normal mood/affect, nml cerebellar function, nml station & gait, sensation nml, No motor deficits, No sensory deficit Skin Exam: normal color, warm, dry, No rash Lymphatic Exam: No adenopathy SpO2 Interpretation: normal SpO2: 96 O2 Delivery: Room Air - Course Nursing assessment & vital signs reviewed: Yes Ordered Tests: Medication Summary Discontinued Medications Generic Name Dose Route Start Last Admin Trade Name Alfonso PRN Reason Stop Dose Admin Dexamethasone Sodium Phosphate 10 mg 08/24/21 18:29 08/24/21 18:34 Decadron 10mg Inj. IM 08/24/21 18:30 10 mg STAT ONE Administration Dexamethasone Sodium Phosphate Confirm 08/24/21 18:33 Decadron 10mg Inj. Administered 08/24/21 18:34 Dose 10 mg .ROUTE .STK-MED ONE Penicillin G Benzathine 1.2 mu 08/24/21 18:29 08/24/21 18:35 Bicillin L-A 1.2 Mu/2ml Syringe IM 08/24/21 18:30 1.2 mu STAT ONE Administration Penicillin G Benzathine Confirm 08/24/21 18:34 Bicillin L-A 1.2 Mu/2ml Syringe Administered 08/24/21 18:35 Dose 1.2 mu IM .STK-MED ONE - Progress Progress Note: 08/24/21 18:33 CV19 test sent to lab 10mg IM Decadron 1.2 mu IM Dolores Counseled pt/family regarding: diagnosis, need for follow-up - Departure Departure Disposition: Home Clinical Impression: Sore throat Condition: Stable Critical Care Time: No Referrals: SEPIDEH ALLAN [Primary Care Provider] - Instructions: Sore Throat, Adult (DC) Additional Instructions: Follow up with your family MD in 1-2 days Covid19 test will be back in 2-3 days Return to ER for increasing shortness of breath Get a pulse oximeter and monitor oxygen saturation-Return to ER for persistent saturation less than 91%
[2021-08-24 19:31] VITALS: BP 188/87; PULSE 88
== END 2021-08-24 19:24 | disposition home or self-care (01) ==
LOC: ED 16:41
DX: J02.9 Acute pharyngitis, unspecified (principal)
CPT/HCPCS: 96372; 99284; U0003; J0561; J1100

== ENCOUNTER 2021-09-05 16:13 | Emergency (ER) | payer OTHER ==
[2021-09-05 16:25] VITALS: O2SAT 96
[2021-09-05 17:17] LABS: Absolute Neutrophil Ct (ANC) 6.62 (1.4-6.9); BASOPHIL % 0.2 % (0.0-0.4); Basophil (Absolute #) 0.02 (0-0.4); Eosinophil % 0.7 % (0.00-5.0); Eosinophil (Absolute #) 0.07 (0-0.5); Hematocrit 48.5 % (42-50); Hemoglobin 16.1 gm/dl (12.5-18.0); Lymphocyte (Absolute #) 2.38 (1.0-4.6); Lymphocytes % 23.3 % (24.0-44.0); Mean Corpuscular Hemoglobin 29.9 pg (26-32); Mean Corpuscular Hgb Concent. 33.2 g/dl (32-36); Mean Platelet Volume 10.5 fl (7.5-11.0); Monocyte (Absolute #) 1.11 (0.0-1.3); Monocytes % 10.9 % (0.0-12.0); Neutrophil % 64.9 % (36.0-66.0); Platelet Count 256 K/mm3 (150-450); Red Blood Count 5.39 M/mm3 (4.1-5.6); White Blood Count 10.2 K/mm3 (4.0-10.5)
--- NOTE | 2021-09-05 17:20 | ERPHSYRPT ---
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 Physician History: 31 yo wm w dyspnea x 1 hour. Pt denies chest pain/cough/f ever/coryza/N/V/D/melena/hematochezia. Timing/Duration: other (1hr) Activities at Onset: rest Severity of Dyspnea-Max: moderate Severity of Dyspnea-Current: mild Possible Cause: occasional episodes Modifying Factors: Improves With: activity Associated Symptoms: No chest pain/discomfort, No edema, No fever, No insomnia, No loss of appetite, No lightheadedness, No wheezing, No weakness, No ankle swelling, No chills, No hemoptysis, No calf pain, No dizziness, No heaviness, No heart racing, No lightheadedness, No leg swelling, No muscle spasms feet, No muscle spasms hands, No painful breathing, No productive cough, No sweating, No tightness, No tingling face Allergies/Adverse Reactions: No Known Drug Allergies Allergy (Verified 09/05/21 16:25) Home Medications: Benazepril HCl 20 mg PO DAILY 12/16/19 [History] Carvedilol 12.5 mg [Coreg 12.5 mg] 12.5 mg PO BID 12/16/19 [History] Bupropion HCl Xl 150 mg [Wellbutrin XL 150 MG] 150 mg PO DAILY 04/14/21 [History] Hydrochlorothiazide 25 mg [hydroDIURIL 25 MG] 25 mg PO DAILY 04/14/21 [History] Hx Tetanus, Diphtheria Vaccination/Date Given: Yes Hx Influenza Vaccination/Date Given: No Hx Pneumococcal Vaccination/Date Given: No Immunizations Up to Date: Yes Travel Risk - International Travel Have you traveled outside of the country in past 3 weeks: No - Coronavirus Screening Are you exhibiting any of the following symptoms?: No - Vaccine Status Have you recieved a Covid-19 vaccination: No - Review of Systems Constitutional: No Symptoms Eyes: No Symptoms Ears, Nose, & Throat: No Symptoms Respiratory: No Symptoms, Dyspnea Cardiac: No Symptoms Abdominal/Gastrointestinal: No Symptoms Genitourinary Symptoms: No Symptoms Musculoskeletal: No Symptoms Skin: No Symptoms Neurological: No Symptoms Psychological: No Symptoms Endocrine: No Symptoms Hematologic/Lymphatic: No Symptoms Immunological/Allergic: No Symptoms - Past Medical History Pertinent Past Medical History: Yes Neurological History: No Pertinent History ENT History: No Pertinent History Cardiac History: Hypertension Respiratory History: No Pertinent History Endocrine Medical History: No Pertinent History Musculoskeletal History: No Pertinent History GI Medical History: GERD History: No Pertinent History Psycho-Social History: Anxiety, Bipolar, Depression, Other Male Reproductive Disorders: No Pertinent History Other Medical History: PSYCH HX - Past Surgical History Past Surgical History: Yes Neuro Surgical History: No Pertinent History Cardiac: No Pertinent History Respiratory: No Pertinent History Gastrointestinal: No Pertinent History Genitourinary: No Pertinent History Musculoskeletal: Other Male Surgical History: No Pertinent History Other Surgical History: pt states he had thumb surgery when he was a baby. - Social History Smoking Status: Never smoker Exposure to second hand smoke: No Drug Use: none Patient Lives Alone: No Significant Family History: no pertinent family hx - Nursing Vital Signs Nursing Vital Signs: Initial Vital Signs Temperature 98.3 F 09/05/21 16:16 Pulse Rate 94 H 09/05/21 16:16 Respiratory Rate 18 09/05/21 16:16 Blood Pressure 165/93 09/05/21 16:16 O2 Sat by Pulse Oximetry 96 09/05/21 16:16 Pain Scale Pain Intensity 0 Hypertensive - Physical Exam General Appearance: no apparent distress Eye Exam: PERRL/EOMI, eyes nml inspection Ears, Nose, Throat Exam: hearing grossly normal, normal ENT inspection, normal pharynx Neck Exam: normal inspection, non-tender, supple, full range of motion, No Brudzinski, No Kernig's, No meningismus Respiratory Exam: normal breath sounds, lungs clear, airway intact, No chest tenderness, No respiratory distress Cardiovascular/Chest Exam: normal heart sounds, regular rate/rhythm, normal peripheral pulses, No murmur Abdominal/Gastrointestinal Exam: soft, normal bowel sounds, No tenderness Extremity Exam: non-tender, normal range of motion, normal inspection, normal capillary refill Peripheral Pulses Exam: carotid (R): 2+, carotid (L): 2+ Neurologic Exam: alert, oriented x 3, cooperative, audit manager II-XII nml as tested, normal mood/affect, nml station & gait, sensation nml Skin Exam: normal color, warm, dry, No rash Lymphatic Exam: No adenopathy SpO2 Interpretation: normal SpO2: 96 O2 Delivery: Room Air - Course Nursing assessment & vital signs reviewed: Yes EKG Interpreted by Me: RATE (NSR/Normal QT-QTc/No acute ST-T wave changes) Ordered Tests: Active Orders 24 hr Category Date Time Status EKG-ER Only STAT Care 09/05/21 16:51 Completed IV Insertion STAT Care 09/05/21 16:51 Completed CHEST 1 VIEW (PORTABLE) Stat Exams 09/05/21 16:51 Taken CBC W DIFF Stat Lab 09/05/21 17:13 Completed CMP Stat Lab 09/05/21 17:13 Completed PROTIME WITH INR Stat Lab 09/05/21 17:13 Completed PTT Stat Lab 09/05/21 17:13 Completed TROPONIN Q3H Lab 09/05/21 17:13 Completed Lab/Rad Data: Laboratory Result Diagrams 09/05/21 17:13 09/05/21 17:13 Laboratory Results 09/05/21 09/05/21 09/05/21 Range/Units 17:13 17:13 17:13 WBC (4.0-10.5) K/mm3 RBC (4.1-5.6) M/mm3 Hgb (12.5-18.0) gm/dl Hct (42-50) % MCV (78-100) fl MCH (26-32) pg MCHC (32-36) g/dl RDW (11.5-14.0) % Plt Count (150-450) K/mm3 MPV (7.5-11.0) fl Gran % (36.0-66.0) % Eos # (Auto) (0-0.5) Absolute Lymphs (auto) (1.0-4.6) Absolute Monos (auto) (0.0-1.3) Lymphocytes % (24.0-44.0) % Monocytes % (0.0-12.0) % Eosinophils % (0.00-5.0) % Basophils % (0.0-0.4) % Absolute Granulocytes (1.4-6.9) Basophils # (0-0.4) PT 11.8 (9.4-12.5) SECONDS INR 1.00 (0.8-3.0) APTT 32.8 (25.1-36.5) SECONDS Sodium 141 (137-145) mmol/L Potassium 3.9 (3.5-5.1) mmol/L Chloride 102 (98-107) mmol/L Carbon Dioxide 26 (22-30) mmol/L Anion Gap 16.8 H (5-15) MEQ/L BUN 14 (9-20) mg/dL Creatinine 0.88 (0.66-1.25) mg/dL Estimated GFR > 60.0 ML/MIN Glucose 113 H (74-106) mg/dL Calcium 9.6 (8.4-10.2) mg/dL Total Bilirubin 0.50 (0.2-1.3) mg/dL AST 31 (17-59) U/L ALT 43 (0-50) U/L Alkaline Phosphatase 48 (38-126) U/L Troponin I < 0.012 (0.000-0.034) ng/mL Serum Total Protein 7.6 (6.3-8.2) g/dL Albumin 4.5 (3.5-5.0) g/dL 09/05/21 Range/Units 17:13 WBC 10.2 (4.0-10.5) K/mm3 RBC 5.39 (4.1-5.6) M/mm3 Hgb 16.1 (12.5-18.0) gm/dl Hct 48.5 (42-50) % MCV 90.0 (78-100) fl MCH 29.9 (26-32) pg MCHC 33.2 (32-36) g/dl RDW 13.0 (11.5-14.0) % Plt Count 256 (150-450) K/mm3 MPV 10.5 (7.5-11.0) fl Gran % 64.9 (36.0-66.0) % Eos # (Auto) 0.07 (0-0.5) Absolute Lymphs (auto) 2.38 (1.0-4.6) Absolute Monos (auto) 1.11 (0.0-1.3) Lymphocytes % 23.3 L (24.0-44.0) % Monocytes % 10.9 (0.0-12.0) % Eosinophils % 0.7 (0.00-5.0) % Basophils % 0.2 (0.0-0.4) % Absolute Granulocytes 6.62 (1.4-6.9) Basophils # 0.02 (0-0.4) PT (9.4-12.5) SECONDS INR (0.8-3.0) APTT (25.1-36.5) SECONDS Sodium (137-145) mmol/L Potassium (3.5-5.1) mmol/L Chloride (98-107) mmol/L Carbon Dioxide (22-30) mmol/L Anion Gap (5-15) MEQ/L BUN (9-20) mg/dL Creatinine (0.66-1.25) mg/dL Estimated GFR ML/MIN Glucose (74-106) mg/dL Calcium (8.4-10.2) mg/dL Total Bilirubin (0.2-1.3) mg/dL AST (17-59) U/L ALT (0-50) U/L Alkaline Phosphatase (38-126) U/L Troponin I (0.000-0.034) ng/mL Serum Total Protein (6.3-8.2) g/dL Albumin (3.5-5.0) g/dL - Progress Progress Note: 09/05/21 18:03 Pt had neg CV19 test on 08/24/21 Counseled pt/family regarding: lab results, diagnosis, need for follow-up, rad results - Departure Departure Disposition: Home Clinical Impression: Dyspnea Condition: Stable Critical Care Time: No Referrals: SEPIDEH ALLAN [Primary Care Provider] - Instructions: Shortness of Breath (Dyspnea) (DC) Additional Instructions: Follow up with your family MD Return to ER for any new signs/symptoms
[2021-09-05 17:22] LABS: PROTIME 11.8 SECONDS (9.4-12.5)
[2021-09-05 17:24] LABS: PTT 32.8 SECONDS (25.1-36.5)
[2021-09-05 17:40] LABS: ALBUMIN 4.5 g/dL (3.5-5.0); ALKALINE PHOSPHATASE 48 U/L (38-126); ANION GAP 16.8 MEQ/L (5-15); BLOOD UREA NITROGEN 14 mg/dL (9-20); CHLORIDE 102 mmol/L (98-107); Calcium 9.6 mg/dL (8.4-10.2); Carbon Dioxide 26 mmol/L (22-30); Creatinine 1 0.88 mg/dL (0.66-1.25); EST GLOMERULAR FILTRATION RATE > 60.0 ML/MIN; Glucose 113 mg/dL (74-106); Potassium 3.9 mmol/L (3.5-5.1); SGOT/AST 31 U/L (17-59); SGPT/ALT 43 U/L (0-50); SODIUM 141 mmol/L (137-145); Total Protein 7.6 g/dL (6.3-8.2)
[2021-09-05 18:12] VITALS: BP 121/83; PULSE 91
--- NOTE | 2021-09-06 08:36 | XRAY ---
Indication: Dyspnea. Comparison: August 24, 2021. Portable apical lordotic chest again demonstrates normal heart and lungs. Bony thorax intact. No new/acute findings.
== END 2021-09-05 18:12 | disposition home or self-care (01) ==
LOC: ED 16:13
DX: R06.00 Dyspnea, unspecified (principal); R07.89 Other chest pain; R05.9 Cough, unspecified; R50.9 Fever, unspecified; K92.1 Melena; Z79.891 Long term (current) use of opiate analgesic; I10 Essential (primary) hypertension
CPT/HCPCS: 36415; 71045; 80053; 84484; 85025; 85610; 85730; 99284

== ENCOUNTER 2022-02-25 18:34 | Emergency (ER) | payer OTHER ==
--- NOTE | 2022-02-25 19:03 | ERPHSYRPT ---
- History of Present Illness Source: patient Exam Limitations: no limitations Patient Subjective Stated Complaint: Pt states that his left ear has been hurting for the past 2 days Triage Nursing Assessment: Pt brought self to the ER, hypertensive, rates pain as 6/10 in left ear, denies trauma to ear, last took some pain medicine this AM, denies drainage from left ear, doesn't appear to be in any pain Physician History: 31 yo wm w L otalgia x 2 days. Pt denies trauma/fever/ST/cough/coryza/dental pain/N/V/D. Timing/Duration: gradual onset Severity: mild ENT Location: ear (L) Prearrival Treatment: over the counter meds Modifying Factors: Improves With: nothing Associated Symptoms: ear pain (L), No ear pain (R), No cough, No fever, No chills, No change in hearing, No dizziness, No drooling, No ear drainage, No facial pain/swelling, No headache, No hearing loss, No jaw pain, No malaise, No motion sickness, No nasal congestion/drainage, No epistaxis, No nasal foreign body, No neck pain, No poor fluid intake, No poor solids intake, No ringing of ears, No swollen glands, No sinus infection, No sore throat, No tooth pain, No difficulty swallowing, No voice change Allergies/Adverse Reactions: No Known Drug Allergies Allergy (Verified 02/25/22 18:44) Home Medications: Benazepril HCl 20 mg PO DAILY 12/16/19 [History] Carvedilol 12.5 mg [Coreg 12.5 mg] 12.5 mg PO DAILY 12/16/19 [History] Aspirin EC 81 mg [Ecotrin 81 mg] 81 mg PO DAILY 02/25/22 [History] Atorvastatin Calcium 40 mg PO DAILY 02/25/22 [History] Famotidine 40 mg PO DAILY 02/25/22 [History] Omeprazole 40 mg PO BID 02/25/22 [History] Triamterene/Hydrochlorothiazid [Triamterene-Hctz 37.5-25 mg Tb] 1 each PO DAILY 02/25/22 [History] Ziprasidone 20 mg [Geodon 20 MG Capsule] 100 mg PO DAILY 02/25/22 [History] Hx Tetanus, Diphtheria Vaccination/Date Given: Yes Hx Influenza Vaccination/Date Given: No Hx Pneumococcal Vaccination/Date Given: No Travel Risk - International Travel Have you traveled outside of the country in past 3 weeks: No - Coronavirus Screening Are you exhibiting any of the following symptoms?: No Close contact with a COVID-19 positive Pt in past 14-21 Days: No - Vaccine Status Have you recieved a Covid-19 vaccination: No - Review of Systems Constitutional: No Symptoms Eyes: No Symptoms Ears, Nose, & Throat: Ear Pain, No Ear Discharge, No Hearing Changes, No Tinnitus, No Nose Pain, No Nose Congestion, No Nose Discharge, No Sinus Drainage, No Epistaxis, No Mouth Pain, No Mouth Swelling, No Loose Teeth, No Throat Pain, No Throat Swelling, No Hoarse, No Painful Swallowing, No Snoring, No Stridor Respiratory: No Symptoms Cardiac: No Symptoms Abdominal/Gastrointestinal: No Symptoms Genitourinary Symptoms: No Symptoms Musculoskeletal: No Symptoms Skin: No Symptoms Neurological: No Symptoms Psychological: No Symptoms Endocrine: No Symptoms Hematologic/Lymphatic: No Symptoms Immunological/Allergic: No Symptoms - Past Medical History Pertinent Past Medical History: Yes Neurological History: No Pertinent History ENT History: No Pertinent History Cardiac History: Hypertension Respiratory History: No Pertinent History Endocrine Medical History: No Pertinent History Musculoskeletal History: No Pertinent History GI Medical History: GERD History: No Pertinent History Psycho-Social History: Anxiety, Bipolar, Depression, Other Male Reproductive Disorders: No Pertinent History Other Medical History: PSYCH HX - Past Surgical History Past Surgical History: Yes Neuro Surgical History: No Pertinent History Cardiac: No Pertinent History Respiratory: No Pertinent History Gastrointestinal: No Pertinent History Genitourinary: No Pertinent History Musculoskeletal: Other Male Surgical History: No Pertinent History Other Surgical History: pt states he had thumb surgery when he was a baby. - Social History Smoking Status: Never smoker Exposure to second hand smoke: No Drug Use: none Patient Lives Alone: No Significant Family History: no pertinent family hx - Nursing Vital Signs Nursing Vital Signs: Initial Vital Signs Temperature 98.8 F 02/25/22 18:37 Pulse Rate 80 02/25/22 18:37 Blood Pressure 142/84 02/25/22 18:37 O2 Sat by Pulse Oximetry 96 02/25/22 18:37 Pain Scale Pain Intensity 5 Hypertensive - Physical Exam General Appearance: no apparent distress Eye Exam: bilateral eye: normal inspection, PERRL, EOMI Ear Exam: left ear: TM dull, other (Small papule anterior canal wall, cerumen vs early papule) Nasal Exam: normal inspection Throat Exam: normal, pharynx normal Neck Exam: normal inspection, non-tender, supple, full range of motion, trachea midline Cardiovascular/Respiratory Exam: normal breath sounds, regular rate/rhythm, heart sounds normal Abdominal Exam: non-tender Neurologic Exam: alert, oriented x 3, cooperative, cyber forensic specialist II-XII nml as tested, normal mood/affect, nml cerebellar function, nml station & gait, sensation nml Skin Exam: normal color, warm, dry SpO2 Interpretation: normal SpO2: 96 O2 Delivery: Room Air - Course Nursing assessment & vital signs reviewed: Yes - Progress Counseled pt/family regarding: diagnosis, need for follow-up - Departure Departure Disposition: Home Clinical Impression: Otalgia of left ear, Papule Condition: Stable Critical Care Time: No Referrals: SEPIDEH ALLAN [Primary Care Provider] - Follow up/PCP as directed Instructions: Ear Infections (Otitis Media) in Children (DC), Outer Ear Infection (DC) Additional Instructions: Amoxil twice a day for 10 days Floxin otic twice a day for 10 days Follow up with your family MD in 2-3 days Return to ER for increasing pain or temperature greater than 100.5 Prescriptions: Amoxicillin 875 mg PO BID 10 Days #20 tablet Ofloxacin Otic 5 ml [Floxin Otic 5 ML] 10 drops OT BID 10 Days #5 ml
[2022-02-25 19:27] VITALS: BP 137/84; PULSE 85
[2022-02-25 22:41] VITALS: O2SAT 96
== END 2022-02-25 19:00 | disposition home or self-care (01) ==
LOC: ED 18:34
DX: H92.02 Otalgia, left ear (principal); R23.8 Other skin changes; I10 Essential (primary) hypertension; K21.9 Gastro-esophageal reflux disease without esophagitis; Z79.899 Other long term (current) drug therapy
CPT/HCPCS: 99283

== ENCOUNTER 2023-08-03 20:04 | Emergency (ER) | payer OTHER ==
--- NOTE | 2023-08-03 20:07 | ERPHSYRPT ---
- History of Present Illness Time Seen by Provider: 08/03/23 20:07 Source: patient Exam Limitations: no limitations Physician History: This is a morbidly obese 33-year-old white male patient Dr. Torres who was having difficulty having a bowel movement over the last 2 days and some difficulty urinating. He states he been pushing often and he did use MiraLAX without benefit. He has had no nausea or vomiting symptoms. He has no significant abdominal pain. He feels pressure in his rectum. Patient has a history of hyperlipidemia, hypertension, gastroesophageal reflux disease and significant psychiatric history including anxiety, bipolar disorder and depression. Timing/Duration: day(s) (2) Activites at Onset: none Quality: other (No significant abdominal pain) Severity of Pain-Max: none Severity of Pain-Current: none Modifying Factors: Improves With: other (Constipation) Associated Symptoms: other (Pressure in his rectum) Sexual intercourse history: non-contributory Allergies/Adverse Reactions: No Known Drug Allergies Allergy (Verified 08/03/23 20:19) Home Medications: Benazepril HCl 20 mg PO DAILY 12/16/19 [History] Carvedilol 12.5 mg [Coreg 12.5 mg] 25 mg PO BID 12/16/19 [History] Atorvastatin Calcium 40 mg PO DAILY 02/25/22 [History] Famotidine 40 mg PO HS 02/25/22 [History] Triamterene/Hydrochlorothiazid [Triamterene-Hctz 37.5-25 mg Tb] 1 each PO DAILY 02/25/22 [History] Ziprasidone 20 mg [Geodon 20 MG Capsule] 100 mg PO DAILY 02/25/22 [History] Amlodipine Besylate 5 mg PO DAILY 08/03/23 [History] Daridorexant HCl [Quviviq] 50 mg PO DAILY 08/03/23 [History] Dexlansoprazole [Dexilant] 60 mg PO DAILY 08/03/23 [History] Metformin HCl 500 mg [Glucophage 500 MG] 500 mg PO BIDWM 08/03/23 [History] clonazePAM [Clonazepam] 0.25 mg PO BID 08/03/23 [History] Hx Tetanus, Diphtheria Vaccination/Date Given: Yes Hx Influenza Vaccination/Date Given: No Hx Pneumococcal Vaccination/Date Given: No Travel Risk - International Travel Have you traveled outside of the country in past 3 weeks: No - Coronavirus Screening Are you exhibiting any of the following symptoms?: No Close contact with a COVID-19 positive Pt in past 14-21 Days: No - Vaccine Status Have you recieved a Covid-19 vaccination: No - Past Medical History Pertinent Past Medical History: Yes Neurological History: No Pertinent History ENT History: No Pertinent History Cardiac History: Hypertension Respiratory History: No Pertinent History Endocrine Medical History: No Pertinent History Musculoskeletal History: No Pertinent History GI Medical History: GERD History: No Pertinent History Psycho-Social History: Anxiety, Bipolar, Depression, Other Male Reproductive Disorders: No Pertinent History Other Medical History: PSYCH HX - Past Surgical History Past Surgical History: Yes Neuro Surgical History: No Pertinent History Cardiac: No Pertinent History Respiratory: No Pertinent History Gastrointestinal: No Pertinent History Genitourinary: No Pertinent History Musculoskeletal: Other Male Surgical History: No Pertinent History Other Surgical History: pt states he had thumb surgery when he was a baby. - Social History Smoking Status: Never smoker Exposure to second hand smoke: No Drug Use: none Patient Lives Alone: No Significant Family History: no pertinent family hx - Review of Systems Constitutional: No Symptoms Eyes: No Symptoms Ears, Nose, & Throat: No Symptoms Respiratory: No Symptoms Cardiac: No Symptoms Abdominal/Gastrointestinal: Constipation, No Abdominal Pain, No Nausea, No Vomiting, No Diarrhea Genitourinary Symptoms: No Symptoms Musculoskeletal: No Symptoms Skin: No Symptoms Neurological: No Symptoms Psychological: No Symptoms Endocrine: No Symptoms Hematologic/Lymphatic: No Symptoms - Nursing Vital Signs Nursing Vital Signs: Initial Vital Signs Blood Pressure 155/105 08/03/23 20:18 O2 Sat by Pulse Oximetry 95 08/03/23 20:18 Pain Scale Pain Intensity 3 - Physical Exam General Appearance: no apparent distress, alert, anxiety, obese Eye Exam: PERRL/EOMI, eyes nml inspection Ears, Nose, Throat Exam: normal ENT inspection, moist mucous membranes Neck Exam: normal inspection, non-tender, supple, full range of motion Respiratory Exam: normal breath sounds, lungs clear, No chest tenderness, No respiratory distress Cardiovascular Exam: regular rate/rhythm, normal heart sounds, normal peripheral pulses Gastrointestinal/Abdomen Exam: soft, normal bowel sounds, No tenderness, No distention, No guarding Rectal Exam: deferred Back Exam: normal inspection, normal range of motion, No CVA tenderness, No vertebral tenderness Extremity Exam: normal inspection, normal range of motion, pelvis stable Neurologic Exam: alert, oriented x 3, cooperative, name plate stamper II-XII nml as tested, normal mood/affect, nml cerebellar function, nml station & gait, sensation nml Skin Exam: normal color, warm, dry Lymphatic Exam: No adenopathy SpO2 Interpretation: normal O2 Delivery: Room Air - Course Nursing assessment & vital signs reviewed: Yes Ordered Tests: Active Orders 24 hr Category Date Time Status KUB Stat Exams 08/03/23 20:50 Taken BMP Stat Lab 08/03/23 21:20 Completed UA W/RFX UR CULTURE Stat Lab 08/03/23 20:20 Completed Lab/Rad Data: Laboratory Result Diagrams 08/03/23 21:20 Laboratory Results 08/03/23 08/03/23 Range/Units 21:20 20:20 Sodium 139 (137-145) mmol/L Potassium 4.0 (3.5-5.1) mmol/L Chloride 104 (98-107) mmol/L Carbon Dioxide 23 (22-30) mmol/L Anion Gap 15.1 H (5-15) MEQ/L BUN 18 (9-20) mg/dL Creatinine 1.06 (0.66-1.25) mg/dL Estimated GFR > 60.0 ML/MIN Glucose 130 H (74-106) mg/dL Calcium 9.5 (8.4-10.2) mg/dL Urine Color Yellow (Yellow) Urine Appearance Clear (Clear) Urine pH 5.5 (4.6-8.0) Ur Specific [place] 1.020 (1.005-1.030) Urine Protein Negative (Negative) Urine Glucose (UA) Negative (Negative) mg/dL Urine Ketones Trace A (Negative) Urine Blood Negative (Negative) Urine Nitrite Negative (Negative) Urine Bilirubin Negative (Negative) Urine Urobilinogen 1.0 A (0.2) mg/dL Ur Leukocyte Esterase Negative (Negative) U Hyaline Cast (Auto) NONE SEEN (0-2) /LPF Urine Microscopic RBC 0-2 (0-5) /HPF Urine Microscopic WBC 0-2 (0-5) /HPF Ur Epithelial Cells None Seen (None Seen) /HPF Urine Bacteria None Seen (None Seen) /HPF Urine Culture Reflexed NO (NO) - Progress Progress: unchanged Progress Note: 08/03/23 21:58 This patient's medical issue is 1 of low to moderate complexity. Level complex in the work-up performed is based on review of the patient's past medical histo ry, review of the patient's medication list, review the patient's drug allergy list, history present illness and physical findings on examination. The work-up in this patient includes a urinalysis, a BMP and a KUB. I reviewed and interpreted the work-up.. Patient has normal electrolytes and normal kidney function. His urinalysis is free of infection and he is not dehydrated. His KUB does not show any free air or distended loops of small bowel with air-fluid levels. There is moderate amount of stool in his rectum as well as the right colon. He has only been using MiraLAX. We will provide him with a take-home milk of magnesia dose and fleets enema for rectal use when he gets home this evening. He is to continue using MiraLAX. He was also instructed to repeat the fleets enema late morning to noon tomorrow, 08/04/2023. He is also to follow-up with his primary care provider on 08/06/2023. Counseled pt/family regarding: lab results, diagnosis, need for follow-up, rad results Medical Desision Making - Diagnostic Testing Diagnostic test were ordered, analyzed, and reviewed by me: Yes Radiological Interpretation: Interpreted by me - Risk of complications Minimal Risk: Minimal risk of morbidity - Departure Departure Disposition: Home Clinical Impression: Constipation Condition: Stable Critical Care Time: No Referrals: SEPIDEH TORRES [Primary Care Provider] - Follow up/PCP as directed Additional Instructions: Drink plenty of clear liquids. Continue using MiraLAX daily. Take the milk of magnesia dose orally and use the fleets enema dose rectally when you get home this evening. Go to the pharmacy tomorrow morning, 08/04/2023, and purchase additional milk of magnesia and fleets enemas and follow the directions on the product packaging. Call your primary care provider on 08/06/2023 to obtain an appointment for further evaluation management.
[2023-08-03 20:29] LABS: Appearance Clear (Clear); Bacteria None Seen /HPF (None Seen); Bilirubin Negative (Negative); Blood Negative (Negative); Epithelial Cells None Seen /HPF (None Seen); Glucose, Urine Negative (Negative); Hyaline Casts NONE SEEN /LPF (0-2); Ketones Trace (Negative); Leukocyte Esterase Negative (Negative); Nitrite Negative (Negative); Ph 5.5 (4.6-8.0); Protein,Urine Dip Negative (Negative); RBC 0-2 /HPF (0-5); WBC 0-2 /HPF (0-5)
[2023-08-03 20:30] LABS: ADD URINE CULTURE? NO (NO)
[2023-08-03 20:37] VITALS: RESP 22; TEMP 96.6
[2023-08-03 21:43] LABS: ANION GAP 15.1 MEQ/L (5-15); BLOOD UREA NITROGEN 18 mg/dL (9-20); CHLORIDE 104 mmol/L (98-107); Calcium 9.5 mg/dL (8.4-10.2); Carbon Dioxide 23 mmol/L (22-30); Creatinine 1 1.06 mg/dL (0.66-1.25); EST GLOMERULAR FILTRATION RATE > 60.0 ML/MIN; Glucose 130 mg/dL (74-106); SODIUM 139 mmol/L (137-145)
[2023-08-03] MEDS ORDERED: MILK OF MAGNESIA 30 ML PO ONE (22:03)
[2023-08-03] MEDS ORDERED: MILK OF MAGNESIA 30 ML ONE (22:07)
[2023-08-03 22:13] VITALS: BP 127/86; PULSE 86; O2SAT 95
--- NOTE | 2023-08-04 07:31 | XRAY ---
Indication: Pain. Constipation. Comparison: May 18, 2017 KUB nonacute and nonobstructed with mild scattered colonic fecal debris including rectum. Solid organs and osseous structures unremarkable.
== END 2023-08-03 22:14 | disposition home or self-care (01) ==
LOC: ED 20:04
DX: K59.00 Constipation, unspecified (principal); E78.5 Hyperlipidemia, unspecified; I10 Essential (primary) hypertension; Z79.84 Long term (current) use of oral hypoglycemic drugs; Z79.899 Other long term (current) drug therapy; Z28.310 Unvaccinated for COVID-19
CPT/HCPCS: 36415; 74018; 80048; 81001; 99283; A9270-GY

== ENCOUNTER 2023-09-17 06:00 | Emergency (ER) | payer OTHER ==
[2023-09-17 06:23] VITALS: TEMP 98; O2SAT 96
[2023-09-17] MEDS ORDERED: TORAdol 30 mg Injection IM ONE (06:33)
--- NOTE | 2023-09-17 06:42 | ERPHSYRPT ---
- History of Present Illness Time Seen by Provider: 09/17/23 06:20 Source: patient Exam Limitations: no limitations Patient Subjective Stated Complaint: pt states he has had sore throat, cough, and headache for 2-3 days Triage Nursing Assessment: pt alert and oriented, answers questions approp. pt ambualtes into room with steady gait noted. respirations nonlabored. skin warm and dry. pupils equal and wnl. pt moves all ext wnl. no cough noted during triage. lung sounds cta bilat. Physician History: Patient is a 33-year-old male presents to our ED for evaluation and treatment of a 2-day history of frontal headache nasal congestion and a sore throat. Patient treated himself with Excedrin. This provided temporary relief. No associated fever. No nausea vomiting or diaphoresis. No chest pain or shortness of walt th. No rash. Symptoms are mild to moderate in intensity. No specific worsening or improving factors. Patient otherwise feels well. Mother at bedside they voiced no other complaints or concerns at this time. Portions of this note were created with voice recognition technology. There may be grammatical, spelling, punctuation or sound alike errors Timing/Duration: day(s) (2 days) Severity: moderate Modifying Factors: Improves With: nothing Associated Symptoms: denies symptoms Allergies/Adverse Reactions: No Known Drug Allergies Allergy (Verified 09/17/23 06:23) Home Medications: Benazepril HCl 20 mg PO DAILY 12/16/19 [History] Carvedilol 12.5 mg [Coreg 12.5 mg] 25 mg PO BID 12/16/19 [History] Atorvastatin Calcium 40 mg PO DAILY 02/25/22 [History] Famotidine 40 mg PO HS 02/25/22 [History] Triamterene/Hydrochlorothiazid [Triamterene-Hctz 37.5-25 mg Tb] 1 each PO DAILY 02/25/22 [History] Ziprasidone 20 mg [Geodon 20 MG Capsule] 100 mg PO DAILY 02/25/22 [History] Amlodipine Besylate 5 mg PO DAILY 08/03/23 [History] Daridorexant HCl [Quviviq] 50 mg PO DAILY 08/03/23 [History] Dexlansoprazole [Dexilant] 60 mg PO DAILY 08/03/23 [History] Metformin HCl 500 mg [Glucophage 500 MG] 500 mg PO BIDWM 08/03/23 [H istory] clonazePAM [Clonazepam] 0.25 mg PO BID 08/03/23 [History] Hx Tetanus, Diphtheria Vaccination/Date Given: Yes Hx Influenza Vaccination/Date Given: Yes Hx Pneumococcal Vaccination/Date Given: No Immunizations Up to Date: Yes Travel Risk - International Travel Have you traveled outside of the country in past 3 weeks: No - Coronavirus Screening Are you exhibiting any of the following symptoms?: Yes Symptoms: Cough: New Onset, Headaches/Body Aches/Fatigue Close contact with a COVID-19 positive Pt in past 14-21 Days: No - Vaccine Status Have you recieved a Covid-19 vaccination: No - Review of Systems Constitutional: No Symptoms, No Fever, No Chills Eyes: No Symptoms Ears, Nose, & Throat: No Symptoms Respiratory: No Symptoms, No Cough, No Dyspnea Cardiac: No Symptoms, No Chest Pain, No Edema, No Syncope Abdominal/Gastrointestinal: No Symptoms, No Abdominal Pain, No Nausea, No Vomiting, No Diarrhea Genitourinary Symptoms: No Symptoms, No Dysuria Musculoskeletal: No Symptoms, No Back Pain, No Neck Pain Skin: No Symptoms, No Rash Neurological: No Symptoms, No Dizziness, No Focal Weakness, No Sensory Changes Psychological: No Symptoms Endocrine: No Symptoms Hematologic/Lymphatic: No Symptoms Immunological/Allergic: No Symptoms All Other Systems: Reviewed and Negative - Past Medical History Pertinent Past Medical History: Yes Neurological History: No Pertinent History ENT History: No Pertinent History Cardiac History: Hypertension Respiratory History: Sleep Apnea Endocrine Medical History: No Pertinent History Musculoskeletal History: No Pertinent History GI Medical History: GERD History: No Pertinent History Psycho-Social History: Anxiety, Bipolar, Depression, Other Male Reproductive Disorders: No Pertinent History Other Medical History: PSYCH HX - Past Surgical History Past Surgical History: Yes Neuro Surgical History: No Pertinent History Cardiac: No Pertinent History Respiratory: No Pertinent History Gastrointestinal: No Pertinent History Genitourinary: No Pertinent History Musculoskeletal: Other Male Surgical History: No Pertinent History Other Surgical History: pt states he had thumb surgery when he was a baby. - Social History Smoking Status: Never smoker Exposure to second hand smoke: No Drug Use: none Patient Lives Alone: No Significant Family History: no pertinent family hx - Nursing Vital Signs Nursing Vital Signs: Initial Vital Signs Temperature 98.0 F 09/17/23 06:10 Pulse Rate 92 H 09/17/23 06:10 Respiratory Rate 16 09/17/23 06:10 Blood Pressure 155/91 09/17/23 06:10 O2 Sat by Pulse Oximetry 96 09/17/23 06:10 Pain Scale Pain Intensity 4 - Physical Exam General Appearance: no apparent distress, alert Eye Exam: PERRL/EOMI, eyes nml inspection Ears, Nose, Throat Exam: normal ENT inspection, TMs normal, pharynx normal, moist mucous membranes, other (Nasal congestion, frontal sinus tenderness) Neck Exam: normal inspection, non-tender, supple, full range of motion Respiratory Exam: normal breath sounds, lungs clear, airway intact, No respiratory distress Cardiovascular Exam: regular rate/rhythm, normal heart sounds, normal peripheral pulses Gastrointestinal/Abdomen Exam: soft, normal bowel sounds, No tenderness, No mass Back Exam: normal inspection, normal range of motion, No CVA tenderness, No vertebral tenderness Extremity Exam: normal inspection, normal range of motion, pelvis stable Neurologic Exam: alert, oriented x 3, cooperative, normal mood/affect, nml cerebellar function, nml station & gait, sensation nml, No motor deficits Skin Exam: normal color, warm, dry, No rash Lymphatic Exam: No adenopathy SpO2 Interpretation: normal SpO2: 96 O2 Delivery: Room Air - Course Nursing assessment & vital signs reviewed: Yes - Progress Progress: improved Progress Note: 33-year-old male presents to our ED with a 2-day history of sore throat frontal headache and nasal congestion. Patient self treated with Excedrin with some relief. No other associated symptomology. Physical exam reveals nasal congestion and some frontal sinus tenderness. RSV COVID flu test pending. It is currently the change of shift. Patient endorsed to incoming physician for final disposition. Patient received Toradol for pain control. Portions of this note were created with voice recognition technology. There may be grammatical, spelling, punctuation or sound alike errors Complexity of problems addressed is low acute uncomplicated No critical care time Complex of data reviewed and analyzed is moderate. Test ordered test reviewed. Findings were analyzed and clinically correlated to history and physical examination. Risk of complication and or risk of morbidity/mortality of patient management is low. Vital stable. Patient will be discharged home. Time spent to discharge patient is approximately 10 minutes. Plan of care established for shared decision making. No social determinants of health present to impede follow-up. Portions of this note were created with voice recognition technology. There may be grammatical, spelling, punctuation or sound alike errors 09/17/23 06:45 Counseled pt/family regarding: lab results, diagnosis, need for follow-up - Departure Departure Disposition: Home Clinical Impression: URI (upper respiratory infection), Viral sinusitis, Sore throat Condition: Stable Critical Care Time: No Referrals: SEPIDEH ALLAN [Primary Care Provider] - Follow up/PCP as directed Additional Instructions: Discharge/Care Plan FANY DIAZ was seen on 09/17/23 in the Emergency Room. The patient was counseled regarding Diagnosis,Lab results, Imaging studies, need for follow up and when to return to the Emergency Room. Prescriptions given: Discharge Note I have spoken with the patient and/or caregivers. I have explained the patient's condition, diagnosis and treatment plan based on the information available to me at this time. I have answered the patient's and/or caregiver's questions and addressed any concerns. The patient and/or caregivers have as good understanding of the patient's diagnosis, condition and treatment plan as can be expected at this point. The vital signs have been stable. The patient's condition is stable and appropriate for discharge from the emergency department. The patient will pursue further outpatient evaluation with the primary care physician or other designated or consulting physician as outlined in the discharge instructions. The patient and/or caregivers are agreeable to this plan of care and follow-up instructions have been explained in detail. The patient and/or caregivers have received these instruction. The patient/and or caregivers are aware that any significant change in condition or worsening of symptoms should prompt an immediate return to this or the closest emergency department or call 911.
[2023-09-17] MEDS ORDERED: TORAdol 30 mg Injection ONE (06:49)
[2023-09-17 06:59] LABS: INFLUENZA A NEGATIVE (NEGATIVE); INFLUENZA B NEGATIVE (NEGATIVE); RESPIRATORY SYNCTIAL VIRUS NEGATIVE (NEGATIVE)
[2023-09-17 07:02] LABS: SARS-CoV-2 Xpert Express POSITIVE (NEGATIVE)
[2023-09-17 07:31] VITALS: BP 145/90; PULSE 91; RESP 20
== END 2023-09-17 07:42 | disposition home or self-care (01) ==
LOC: ED 06:00
DX: U07.1 COVID-19 (principal); J06.9 Acute upper respiratory infection, unspecified; J32.9 Chronic sinusitis, unspecified; B97.89 Other viral agents as the cause of diseases classified elsewhere; J02.9 Acute pharyngitis, unspecified; R51.9 Headache, unspecified; I10 Essential (primary) hypertension; Z79.84 Long term (current) use of oral hypoglycemic drugs; Z79.899 Other long term (current) drug therapy; Z28.310 Unvaccinated for COVID-19
CPT/HCPCS: 0241U; 87651; 96372; 99283; J1885

== ENCOUNTER 2025-08-16 02:30 | Emergency (ER) | payer OTHER ==
[2025-08-16 03:04] VITALS: TEMP 97.2
--- NOTE | 2025-08-16 03:04 | ERPHSYRPT ---
- History of Present Illness Source: patient, EMS Exam Limitations: no limitations Timing/Duration: today Severity: moderate Associated Symptoms: loss of appetite Hx Tetanus, Diphtheria Vaccination/Date Given: Yes Hx Influenza Vaccination/Date Given: Yes Hx Pneumococcal Vaccination/Date Given: No <OMEGA STERN - Last Filed: 08/16/25 06:38> <SHE MARIE - Last Filed: 08/16/25 11:15> - History of Present Illness Time Seen by Provider: 08/16/25 03:03 Physician History: Pt was noted to seem a little confused by the police and they had EMS bring him here for evaluation. No signs of trauma and no reported symptoms from pt other than decreased appetite He reports recent changes on his psych meds but has no SIHI at this time and no hallucinations. PERRL EOM full and normal neuro exam without focal deficit. fundi benign and visual kurtz intact. No pronator drift or facial asymetry. Discussed with pt and available family risks and benefits of testing/Tx including CBC, CMP, EKG, Trop, UA, triage screen and acetaminophen and sahra,. and they wish to proceed so these are ordered. Results discussed with pt and available family Pt and family were advised of the limitations of the testing and Tx performed today in this setting and that we have not yet determined a precise cause for their symptoms and there still could be additional pathology of a serious nature evolving undetected. They voice their understanding and wish to choose outpatient f/u rather than further testing in ER or admission to hospital or transfer at this time and they have the capacity to make this choice. (OMEGA STERN) Allergies/Adverse Reactions: lisinopril Adverse Reaction (Unknown, Verified 08/16/25 02:32) Home Medications: Atorvastatin Calcium 40 mg PO HS 02/25/22 [History] Famotidine 40 mg PO HS 02/25/22 [History] Ziprasidone 20 mg [Geodon 20 MG Capsule] 160 mg PO HS 02/25/22 [History] Amlodipine Besylate 10 mg PO DAILY 08/03/23 [History] Metformin HCl 500 mg [Glucophage 500 MG] 500 mg PO BIDWM 08/03/23 [History] clonazePAM [Clonazepam] 0.5 mg PO BID 08/03/23 [History] buPROPion HCL [Wellbutrin Xl] 300 mg PO DAILY 09/17/23 [History] Aripiprazole [Abilify] 30 mg PO DAILY 08/16/25 [History] Dulaglutide [Trulicity] 0.75 mg SQ WEEKLY 08/16/25 [History] Eszopiclone 3 mg PO HS 08/16/25 [History] Gabapentin [Gralise] 600 mg PO HS 08/16/25 [History] Labetalol HCl 100 mg [Trandate 100 MG] 300 mg PO BID 08/16/25 [History] Topiramate 50 mg PO DAILY 08/16/25 [History] buPROPion HCL [Bupropion Xl] 300 mg PO DAILY 08/16/25 [History] - Review of Systems Constitutional: No Fever, No Chills Eyes: No Symptoms Ears, Nose, & Throat: No Symptoms Respiratory: No Cough, No Dyspnea Cardiac: No Chest Pain, No Edema, No Syncope Abdominal/Gastrointestinal: Appetite Changes, No Abdominal Pain, No Nausea, No Vomiting, No Diarrhea Genitourinary Symptoms: No Dysuria Musculoskeletal: No Back Pain, No Neck Pain Skin: No Rash Neurological: Other (reported seemed confused but seems clear now. ), No Dizziness, No Focal Weakness, No Sensory Changes Psychological: No Symptoms Endocrine: No Symptoms Hematologic/Lymphatic: No Symptoms Immunological/Allergic: No Symptoms All Other Systems: Reviewed and Negative <OMEGA STERN - Last Filed: 08/16/25 06:38> - Past Medical History Pertinent Past Medical History: Yes Neurological History: No Pertinent History ENT History: No Pertinent History Cardiac History: Hypertension Respiratory History: Sleep Apnea Endocrine Medical History: No Pertinent History Musculoskeletal History: No Pertinent History GI Medical History: GERD History: No Pertinent History Psycho-Social History: Anxiety, Bipolar, Depression, Other Male Reproductive Disorders: No Pertinent History Other Medical History: PSYCH HX - Past Surgical History Past Surgical History: Yes Neuro Surgical History: No Pertinent History Cardiac: No Pertinent History Respiratory: No Pertinent History Gastrointestinal: No Pertinent History Genitourinary: No Pertinent History Musculoskeletal: Other Male Surgical History: No Pertinent History Other Surgical History: pt states he had thumb surgery when he was a baby. Significant Family History: no pertinent family hx - Social History Smoking Status: Never smoker Exposure to second hand smoke: No Drug Use: none Patient Lives Alone: No <OMEGA STERN - Last Filed: 08/16/25 06:38> - Physical Exam General Appearance: no apparent distress, alert Eye Exam: PERRL/EOMI, eyes nml inspection Ears, Nose, Throat Exam: normal ENT inspection, TMs normal, pharynx normal, moist mucous membranes Neck Exam: normal inspection, non-tender, supple, full range of motion Respiratory Exam: normal breath sounds, lungs clear, No respiratory distress Cardiovascular Exam: regular rate/rhythm, normal heart sounds, normal peripheral pulses Gastrointestinal/Abdomen Exam: soft, normal bowel sounds, No tenderness, No mass Back Exam: normal inspection, normal range of motion, No CVA tenderness, No vertebral tenderness Extremity Exam: normal inspection, normal range of motion, pelvis stable Neurologic Exam: alert, oriented x 3, cooperative, normal mood/affect, nml cerebellar function, nml station & gait, sensation nml, other (the pt is slow to answer but we will ask family if he is different from usual), No motor deficits Skin Exam: normal color, warm, dry, No rash Lymphatic Exam: No adenopathy SpO2 Interpretation: normal SpO2: 95 O2 Delivery: Room Air <OMEGA STERN - Last Filed: 08/16/25 06:38> - Nursing Vital Signs Nursing Vital Signs: Initial Vital Signs Blood Pressure 130/86 08/16/25 02:30 O2 Sat by Pulse Oximetry 95 08/16/25 02:30 Pain Scale Pain Intensity 0 - Course Nursing assessment & vital signs reviewed: Yes EKG Interpreted by Me: Sinus Rhythm, NORMAL AXIS, NORMAL INTERVALS, NORMAL QRS, NORMAL ST-T <OMEGA STERN - Last Filed: 08/16/25 06:38> Ordered Tests: Active Orders 24 hr Category Date Time Status EKG-ER Only STAT Care 08/16/25 03:14 Active ACETAMINOPHEN Stat Lab 08/16/25 03:43 Completed Blood Alcohol [ETHYL ALCOHOL] Stat Lab 08/16/25 03:45 Completed CBC W DIFF Stat Lab 08/16/25 03:43 Completed CMP Stat Lab 08/16/25 03:43 Completed Lactic Acid Stat Lab 08/16/25 03:45 Completed SALICYLATE Stat Lab 08/16/25 03:43 Completed TROPONIN Q4H Lab 08/16/25 03:43 Completed TROPONIN Q4H Lab 08/16/25 07:10 Completed TROPONIN Q4H Lab 08/16/25 11:15 Ordered UA W/RFX UR CULTURE Stat Lab 08/16/25 03:43 Completed Urine Triage Profile Stat Lab 08/16/25 03:43 Completed Lab/Rad Data: Laboratory Result Diagrams 08/16/25 03:43 08/16/25 03:43 Laboratory Results 08/16/25 08/16/25 08/16/25 Range/Units 07:10 03:45 03:45 WBC (4.23-9.07) x10^3/uL RBC (4.63-6.08) x10^6/uL Hgb (13.7-17.5) g/dL Hct (40.1-51.0) % MCV (79.0-92.2) fL MCH (25.7-32.2) pg MCHC (32.3-36.5) g/dL RDW (11.6-14.4) % Plt Count (163-337) x10^3/uL MPV (9.4-12.4) fL Gran % (34.0-67.9) % Immature Gran % (Auto) (0.001-0.429) % Nucleat RBC Rel Count (0.00-0.2) % Eos # (Auto) (0.04-0.54) x10^3/uL Immature Gran # (Auto) (0.001-0.031) x10^3u/L Absolute Lymphs (auto) (1.32-3.57) x10^3/uL Absolute Monos (auto) (0.30-0.82) x10^3/uL Absolute Nucleated RBC (0.00-0.012) x10^3u/L Lymphocytes % (21.8-53.1) % Monocytes % (5.3-12.2) % Eosinophils % (0.8-7.0) % Basophils % (0.2-1.2) % Absolute Granulocytes (1.78-5.38) x10^3/uL Basophils # (0.01-0.08) x10^3/uL Sodium (135-145) mmol/L Potassium (3.5-5.1) mmol/L Chloride (98-107) mmol/L Carbon Dioxide (22-30) mmol/L Anion Gap (5-15) MEQ/L BUN (9-20) mg/dL Creatinine (0.66-1.25) mg/dL Estimated GFR ML/MIN Glucose (74-106) mg/dL Lactic Acid 1.6 (0.4-2.0) Calcium (8.4-10.2) mg/dL Total Bilirubin (0.2-1.3) mg/dL AST (17-59) U/L ALT (0-50) U/L Alkaline Phosphatase (38-126) U/L Troponin I < 0.012 (0.000-0.033) ng/mL Serum Total Protein (6.3-8.2) g/dL Albumin (3.5-5.0) g/dL Urine Color (Yellow) Urine Appearance (Clear) Urine pH (4.6-8.0) Ur Specific [place] (1.005-1.030) Urine Protein (Negative) Urine Glucose (UA) (Negative) mg/dL Urine Ketones (Negative) Urine Blood (Negative) Urine Nitrite (Negative) Urine Bilirubin (Negative) Urine Urobilinogen (0.2) mg/dL Ur Leukocyte Esterase (Negative) U Hyaline Cast (Auto) (0-2) /LPF Urine Microscopic RBC (0-5) /HPF Urine Microscopic WBC (0-5) /HPF Ur Epithelial Cells (None Seen) /HPF Urine Bacteria (None Seen) /HPF Urine Culture Reflexed (NO) Salicylates (2-20) mg/dL Urine Opiates Level (NEGATIVE) Ur Methadone (NEGATIVE) Acetaminophen (10-30) ug/ml Urine Barbiturates (NEGATIVE) Ur Phencyclidine (PCP) (NEGATIVE) Urine Amphetamine (NEGATIVE) U Benzodiazepine Level (NEGATIVE) Urine Cocaine (NEGATIVE) Urine Marijuana (THC) (NEGATIVE) Ethyl Alcohol < 10 (0-10) mg/dL 08/16/25 08/16/25 08/16/25 Range/Units 03:43 03:43 03:43 WBC (4.23-9.07) x10^3/uL RBC (4.63-6.08) x10^6/uL Hgb (13.7-17.5) g/dL Hct (40.1-51.0) % MCV (79.0-92.2) fL MCH (25.7-32.2) pg MCHC (32.3-36.5) g/dL RDW (11.6-14.4) % Plt Count (163-337) x10^3/uL MPV (9.4-12.4) fL Gran % (34.0-67.9) % Immature Gran % (Auto) (0.001-0.429) % Nucleat RBC Rel Count (0.00-0.2) % Eos # (Auto) (0.04-0.54) x10^3/uL Immature Gran # (Auto) (0.001-0.031) x10^3u/L Absolute Lymphs (auto) (1.32-3.57) x10^3/uL Absolute Monos (auto) (0.30-0.82) x10^3/uL Absolute Nucleated RBC (0.00-0.012) x10^3u/L Lymphocytes % (21.8-53.1) % Monocytes % (5.3-12.2) % Eosinophils % (0.8-7.0) % Basophils % (0.2-1.2) % Absolute Granulocytes (1.78-5.38) x10^3/uL Basophils # (0.01-0.08) x10^3/uL Sodium (135-145) mmol/L Potassium (3.5-5.1) mmol/L Chloride (98-107) mmol/L Carbon Dioxide (22-30) mmol/L Anion Gap (5-15) MEQ/L BUN (9-20) mg/dL Creatinine (0.66-1.25) mg/dL Estimated GFR ML/MIN Glucose (74-106) mg/dL Lactic Acid (0.4-2.0) Calcium (8.4-10.2) mg/dL Total Bilirubin (0.2-1.3) mg/dL AST (17-59) U/L ALT (0-50) U/L Alkaline Phosphatase (38-126) U/L Troponin I < 0.012 (0.000-0.033) ng/mL Serum Total Protein (6.3-8.2) g/dL Albumin (3.5-5.0) g/dL Urine Color Dark Yellow (Yellow) Urine Appearance Clear (Clear) Urine pH 5.5 (4.6-8.0) Ur Specific [place] >=1.030 A (1.005-1.030) Urine Protein 30 (Negative) Urine Glucose (UA) Negative (Negative) mg/dL Urine Ketones Trace A (Negative) Urine Blood Negative (Negative) Urine Nitrite Negative (Negative) Urine Bilirubin Negative (Negative) Urine Urobilinogen 1.0 A (0.2) mg/dL Ur Leukocyte Esterase Negative (Negative) U Hyaline Cast (Auto) NONE SEEN (0-2) /LPF Urine Microscopic RBC 0-2 (0-5) /HPF Urine Microscopic WBC 0-2 (0-5) /HPF Ur Epithelial Cells None Seen (None Seen) /HPF Urine Bacteria None Seen (None Seen) /HPF Urine Culture Reflexed NO (NO) Salicylates (2-20) mg/dL Urine Opiates Level NEGATIVE (NEGATIVE) Ur Methadone NEGATIVE (NEGATIVE) Acetaminophen (10-30) ug/ml Urine Barbiturates NEGATIVE (NEGATIVE) Ur Phencyclidine (PCP) NEGATIVE (NEGATIVE) Urine Amphetamine NEGATIVE (NEGATIVE) U Benzodiazepine Level NEGATIVE (NEGATIVE) Urine Cocaine NEGATIVE (NEGATIVE) Urine Marijuana (THC) NEGATIVE (NEGATIVE) Ethyl Alcohol (0-10) mg/dL 08/16/25 08/16/25 Range/Units 03:43 03:43 WBC 7.6 (4.23-9.07) x10^3/uL RBC 4.90 (4.63-6.08) x10^6/uL Hgb 15.0 (13.7-17.5) g/dL Hct 45.2 (40.1-51.0) % MCV 92.2 (79.0-92.2) fL MCH 30.6 (25.7-32.2) pg MCHC 33.2 (32.3-36.5) g/dL RDW 13.1 (11.6-14.4) % Plt Count 167 (163-337) x10^3/uL MPV 11.6 (9.4-12.4) fL Gran % 62.5 (34.0-67.9) % Immature Gran % (Auto) 0.4 (0.001-0.429) % Nucleat RBC Rel Count 0.0 (0.00-0.2) % Eos # (Auto) 0.07 (0.04-0.54) x10^3/uL Immature Gran # (Auto) 0.03 (0.001-0.031) x10^3u/L Absolute Lymphs (auto) 1.96 (1.32-3.57) x10^3/uL Absolute Monos (auto) 0.79 (0.30-0.82) x10^3/uL Absolute Nucleated RBC 0.00 (0.00-0.012) x10^3u/L Lymphocytes % 25.7 (21.8-53.1) % Monocytes % 10.4 (5.3-12.2) % Eosinophils % 0.9 (0.8-7.0) % Basophils % 0.1 L (0.2-1.2) % Absolute Granulocytes 4.77 (1.78-5.38) x10^3/uL Basophils # 0.01 (0.01-0.08) x10^3/uL Sodium 141 (135-145) mmol/L Potassium 3.6 (3.5-5.1) mmol/L Chloride 108 H (98-107) mmol/L Carbon Dioxide 22 (22-30) mmol/L Anion Gap 13.8 (5-15) MEQ/L BUN 16 (9-20) mg/dL Creatinine 1.03 (0.66-1.25) mg/dL Estimated GFR 96.6 ML/MIN Glucose 111 H (74-106) mg/dL Lactic Acid (0.4-2.0) Calcium 9.4 (8.4-10.2) mg/dL Total Bilirubin 0.90 (0.2-1.3) mg/dL AST 24 (17-59) U/L ALT 34 (0-50) U/L Alkaline Phosphatase 51 (38-126) U/L Troponin I (0.000-0.033) ng/mL Serum Total Protein 7.0 (6.3-8.2) g/dL Albumin 4.5 (3.5-5.0) g/dL Urine Color (Yellow) Urine Appearance (Clear) Urine pH (4.6-8.0) Ur Specific [place] (1.005-1.030) Urine Protein (Negative) Urine Glucose (UA) (Negative) mg/dL Urine Ketones (Negative) Urine Blood (Negative) Urine Nitrite (Negative) Urine Bilirubin (Negative) Urine Urobilinogen (0.2) mg/dL Ur Leukocyte Esterase (Negative) U Hyaline Cast (Auto) (0-2) /LPF Urine Microscopic RBC (0-5) /HPF Urine Microscopic WBC (0-5) /HPF Ur Epithelial Cells (None Seen) /HPF Urine Bacteria (None Seen) /HPF Urine Culture Reflexed (NO) Salicylates < 1.0 L (2-20) mg/dL Urine Opiates Level (NEGATIVE) Ur Methadone (NEGATIVE) Acetaminophen < 10 L (10-30) ug/ml Urine Barbiturates (NEGATIVE) Ur Phencyclidine (PCP) (NEGATIVE) Urine Amphetamine (NEGATIVE) U Benzodiazepine Level (NEGATIVE) Urine Cocaine (NEGATIVE) Urine Marijuana (THC) (NEGATIVE) Ethyl Alcohol (0-10) mg/dL - Progress Progress: improved, re-examined Counseled pt/family regarding: lab results, diagnosis, need for follow-up <OMEGA STERN - Last Filed: 08/16/25 06:38> <SHE MARIE - Last Filed: 08/16/25 11:15> - Progress Progress Note: 08/16/25 05:56 we are requesting a telemental to evaluate the pt for need of placement due to his mental health condition appearing to be not optimally controlled recently. He voices no SIHI but has wandered off at various times in a confused state and meds recently have been adjusted. No organic cause is yet identified. Pt is coherent in ER. 08/16/25 06:05 PT will be taken over by Dr. Marie at change of shift after introduction, discussion of pending consult and current Hx , results, and findings. (OMEGA STERN) Patient evaluated and treated by Dr. García. Patient endorsed to Dr. Marie at change of shift. Dr. Delatorre advised that he felt patient was experiencing a psychosis possibly secondary secondary to medication adjustment. Dr. Marie advised to follow-up on pending alcohol level and partial consultation recommendation. Alcohol level is essentially normal. Patient was evaluated by Dr. Zacarias psychiatrist and Paula Pickard social media marketing analyst. Paula Anaya advise discharged with a safety plan. Patient was evaluated at 9:38 AM. Patient reassessed. He is resting comfortably. Patient is currently asymptomatic. Patient denies pain. No numbness tingling or weakness or any neurologic complaints. Patient's parents are at bedside. Parents report that patient is currently functioning at his baseline. They are comfortable taking him home. Patient is requesting discharge as well. Vitals are stable. We will discharge patient home. Patient and parent agree to follow-up with primary care doctor within 48 hours for reevaluation. Father adds that the episode that brought him into the ED is not his first. He has had similar episodes in the past with negative workup. Of note patient had a CT head at our facility in 2016 and 2019. Both were normal. Portions of this note were created with voice recognition technology. There may be grammatical, spelling, punctuation or sound alike errors Complexity of problems addressed is moderate acute complicated. No critical care time. Complex of data reviewed and analyzed is extensive. Test ordered test reviewed results analyzed and correlated clinically with history and physical exam. Patient evaluated by Dr. Zacarias and Paula Pickard social media marketing analyst. Risk of complication and or risk of morbidity/mortality of patient management is low. Vital stable. Time spent to discharge patient is approximately 10 minutes. Plan of care established for shared decision making. No social determinants of health present to impede follow-up. Portions of this note were created with voice recognition technology. There may be grammatical, spelling, punctuation or sound alike errors 08/16/25 11:05 08/16/25 11:13 (SHE MARIE) <OMEGA STERN - Last Filed: 08/16/25 06:38> - Departure Departure Disposition: Home Critical Care Time: No <SHE MARIE - Last Filed: 08/16/25 11:15> - Departure Clinical Impression: Psychosis Condition: Stable Referrals: SEPIDEH ALLAN [Primary Care Provider, [facility]] - Follow up/PCP as directed Additional Instructions: Discharge/Care Plan FANY DIAZ was seen on 08/16/25 in the Emergency Room. The patient was counseled regarding Diagnosis,Lab results, Imaging studies, need for follow up and when to return to the Emergency Room. Prescriptions given: Discharge Note I have spoken with the patient and/or caregivers. I have explained the patient's condition, diagnosis and treatment plan based on the information available to me at this time. I have answered the patient's and/or caregiver's questions and addressed any concerns. The patient and/or caregivers have as good understanding of the patient's diagnosis, condition and treatment plan as can be expected at this point. The vital signs have been stable. The patient's condition is stable and appropriate for discharge from the emergency department. The patient will pursue further outpatient evaluation with the primary care physician or other designated or consulting physician as outlined in the discharge instructions. The patient and/or caregivers are agreeable to this plan of care and follow-up instructions have been explained in detail. The patient and/or caregivers have received these instruction. The patient/and or caregivers are aware that any significant change in condition or worsening of symptoms should prompt an immediate return to this or the closest emergency department or call 911.
[2025-08-16 03:53] LABS: Glucose, Urine Negative (Negative); Protein,Urine Dip 30 (Negative); RBC 0-2 /HPF (0-5); WBC 0-2 /HPF (0-5)
[2025-08-16 04:03] LABS: Amphetamine,Urine NEGATIVE (NEGATIVE); Barbiturate,Urine NEGATIVE (NEGATIVE); Benzodiazepine,Urine NEGATIVE (NEGATIVE); Cocaine,Urine NEGATIVE (NEGATIVE); Methadone,Urine NEGATIVE (NEGATIVE); Opiate,Urine NEGATIVE (NEGATIVE); PCP,Urine NEGATIVE (NEGATIVE); THC,Urine NEGATIVE (NEGATIVE)
[2025-08-16 04:05] LABS: BASOPHIL % 0.1 % (0.2-1.2); Basophil (Absolute #) 0.01 x10^3/uL (0.01-0.08); Calcium 9.4 mg/dL (8.4-10.2); Carbon Dioxide 22 mmol/L (22-30); Creatinine 1 1.03 mg/dL (0.66-1.25); EST GLOMERULAR FILTRATION RATE 96.6 ML/MIN; Eosinophil (Absolute #) 0.07 x10^3/uL (0.04-0.54); Glucose 111 mg/dL (74-106); Hematocrit 45.2 % (40.1-51.0); Hemoglobin 15.0 g/dL (13.7-17.5); IMMATURE GRAN # 0.03 x10^3u/L (0.001-0.031); IMMATURE GRAN % 0.4 % (0.001-0.429); Lymphocyte (Absolute #) 1.96 x10^3/uL (1.32-3.57); Mean Corpuscular Hemoglobin 30.6 pg (25.7-32.2); Mean Corpuscular Hgb Concent. 33.2 g/dL (32.3-36.5); Monocyte (Absolute #) 0.79 x10^3/uL (0.30-0.82); NUCLEATED RBC # 0.00 x10^3u/L (0.00-0.012); NUCLEATED RBC % 0.0 % (0.00-0.2); Platelet Count 167 x10^3/uL (163-337); Potassium 3.6 mmol/L (3.5-5.1); Red Blood Count 4.90 x10^6/uL (4.63-6.08); SGOT/AST 24 U/L (17-59); SGPT/ALT 34 U/L (0-50); Total Protein 7.0 g/dL (6.3-8.2); White Blood Count 7.6 x10^3/uL (4.23-9.07)
[2025-08-16 11:26] VITALS: BP 167/108; PULSE 99; RESP 19; O2SAT 94
== END 2025-08-16 11:36 | disposition home or self-care (01) ==
LOC: ED 02:30
DX: F29 Unspecified psychosis not due to a substance or known physiological condition (principal); R41.0 Disorientation, unspecified; I10 Essential (primary) hypertension; Z79.84 Long term (current) use of oral hypoglycemic drugs; Z79.85 Long-term (current) use of injectable non-insulin antidiabetic drugs; Z79.899 Other long term (current) drug therapy
CPT/HCPCS: 36415; 80053; 80143; 80179; 80307; 81001; 82077; 83605; 84484; 85025; 93005; 99284; Q3014

== ENCOUNTER 2025-08-16 20:52 | Emergency (ER) | payer OTHER ==
[2025-08-16] MEDS ORDERED: TYLENOL 325 MG ONE (21:08)
[2025-08-16] MEDS ORDERED: TORAdol 30 mg Injection ONE (21:08)
[2025-08-16 21:11] VITALS: TEMP 98
[2025-08-16] MEDS: TORAdol 30 mg Injection IV ONE (21:43)
[2025-08-16] MEDS: TYLENOL 325 MG PO ONE (21:43)
[2025-08-16 22:04] LABS: BASOPHIL % 0.1 % (0.2-1.2); Basophil (Absolute #) 0.01 x10^3/uL (0.01-0.08); Eosinophil (Absolute #) 0 x10^3/uL (0.04-0.54); Hematocrit 43.5 % (40.1-51.0); Hemoglobin 14.6 g/dL (13.7-17.5); IMMATURE GRAN # 0.06 x10^3u/L (0.001-0.031); IMMATURE GRAN % 0.4 % (0.001-0.429); Lymphocyte (Absolute #) 1.05 x10^3/uL (1.32-3.57); Mean Corpuscular Hemoglobin 30.5 pg (25.7-32.2); Mean Corpuscular Hgb Concent. 33.6 g/dL (32.3-36.5); Monocyte (Absolute #) 1.41 x10^3/uL (0.30-0.82); NUCLEATED RBC # 0.00 x10^3u/L (0.00-0.012); NUCLEATED RBC % 0.0 % (0.00-0.2); Platelet Count 209 x10^3/uL (163-337); Red Blood Count 4.79 x10^6/uL (4.63-6.08); White Blood Count 15.4 x10^3/uL (4.23-9.07)
[2025-08-16 22:24] LABS: Calcium 9.6 mg/dL (8.4-10.2); Carbon Dioxide 21.0 mmol/L (22-30); Creatinine 1 1.2 mg/dL (0.66-1.25); EST GLOMERULAR FILTRATION RATE 80.4 ML/MIN; Glucose 123.0 mg/dL (74-106); Potassium 3.8 mmol/L (3.5-5.1); SGOT/AST 37.0 U/L (17-59); SGPT/ALT 38.0 U/L (0-50); Total Protein 6.8 g/dL (6.3-8.2)
--- NOTE | 2025-08-16 22:27 | ERPHSYRPT ---
- History of Present Illness Time Seen by Provider: 08/16/25 22:21 Source: patient Exam Limitations: no limitations Patient Subjective Stated Complaint: pt arrived per EMS - EMS personnel reports that pt family called 911 for a missing person stating they had not seen their family member (pt) since leaving [facility]- which was several hours prior to calling. EMS states pt has a history of psychiatric diagnoses. EMS reports pt was found down a steep embankment approx 10-15 feet. pt was found without any clothing on and c/o R foot and R shoulder pain. pt states that he went for a walk after [employer] -pt denies any suicidal ideation or plan at this time. states he fell a couple times and the last time he fell he was unable to get up. pt states his right foot hurts and his right shoulder. pt denies LOC, pt denies neck or back pain at this time. Triage Nursing Assessment: pt is aox3, cervical collar in place per EMS, pt arrives secured on a basket stretcher, pt was able to stand and step out of the basket with minimal assistance, pt ROM and sensation is intact, pupils perrl, afebrile, resps easy and non labored, cap refill < 3 seconds, radial pulses strong and equal. pt with swelling noted to the right dorsal foot, skin is intact. pedal pulse present. pt with abrasions noted to the right shoulder. pt with superficial abrasions noted to BLE. Physician History: Patient is a 35-year-old male history of bipolar anxiety depression presents to our ED via EMS for evaluation post [place]. Patient has a significant psychiatric history. His parents do not believe that he takes his psychiatric medications as prescribed. Patient tends to wander away from home. Today patient wandered away from home removed his clothing and fell down a steep embankment approximately 10 to 15 feet. Patient complains of pain to his right shoulder and right foot. Patient arrived collared not boarded. Patient is conversant and cooperative. He denies homicidal suicidal ideation. Of note patient was in our ED earlier this morning for the same. Patient was and evaluated by Dr. Junior. Patient was medically cleared. Patient was also evaluated by [facility]. Patient was discharged home on safety plan. Family contacted patient's psychiatrist. Psychiatrist wants patient committed for further evaluation. History obtained from paramedics, [employer] officer and patient Differential diagnosis is trauma, altered mental status, confusion Timing/Duration: today Severity: moderate Modifying Factors: Improves With: nothing Associated Symptoms: denies symptoms Allergies/Adverse Reactions: lisinopril Adverse Reaction (Unknown, Verified 08/16/25 21:16) Home Medications: Atorvastatin Calcium 40 mg PO HS 02/25/22 [History] Famotidine 40 mg PO DAILY 02/25/22 [History] Ziprasidone 20 mg [Geodon 20 MG Capsule] 160 mg PO HS 02/25/22 [History] Amlodipine Besylate 10 mg PO DAILY 08/03/23 [History] Metformin HCl 500 mg [Glucophage 500 MG] 500 mg PO BIDWM 08/03/23 [History] clonazePAM [Clonazepam] 0.5 mg PO BID 08/03/23 [History] buPROPion HCL [Wellbutrin Xl] 150 mg PO DAILY 09/17/23 [History] Dulaglutide [Trulicity] 0.75 mg SQ WEEKLY 08/16/25 [History] Eszopiclone 3 mg PO HS 08/16/25 [History] Gabapentin [Gralise] 600 mg PO HS 08/16/25 [History] Labetalol HCl 100 mg [Trandate 100 MG] 300 mg PO BID 08/16/25 [History] Sumatriptan Succinate [Imitrex] 50 mg PO UD 08/16/25 [History] Topiramate 50 mg PO DAILY 08/16/25 [History] buPROPion HCL [Bupropion Xl] 300 mg PO DAILY 08/16/25 [History] Hx Tetanus, Diphtheria Vaccination/Date Given: Yes Hx Influenza Vaccination/Date Given: Yes Hx Pneumococcal Vaccination/Date Given: No Immunizations Up to Date: No Travel Risk - International Travel Have you traveled outside of the country in past 3 weeks: No - Emerging Infectious Disease Are you exhibiting symptoms associated with any current EIDs: No - Review of Systems All Other Systems: Reviewed and Negative - Past Medical History Pertinent Past Medical History: Yes Neurological History: No Pertinent History ENT History: No Pertinent History Cardiac History: Hypertension Respiratory History: Sleep Apnea Endocrine Medical History: No Pertinent History Musculoskeletal History: No Pertinent History GI Medical History: GERD History: No Pertinent History Psycho-Social History: Anxiety, Bipolar, Depression, Other Male Reproductive Disorders: No Pertinent History Other Medical History: PSYCH HX - Past Surgical History Past Surgical History: Yes Neuro Surgical History: No Pertinent History Cardiac: No Pertinent History Respiratory: No Pertinent History Gastrointestinal: No Pertinent History Genitourinary: No Pertinent History Musculoskeletal: Other Male Surgical History: No Pertinent History Other Surgical History: pt states he had thumb surgery when he was a baby. Significant Family History: no pertinent family hx - Social History Smoking Status: Never smoker Exposure to second hand smoke: No Drug Use: none - Social Determinants of Health Will the patient participate in the screening: Unable to obtain - Nursing Vital Signs Nursing Vital Signs: Initial Vital Signs Temperature 97.9 F 08/16/25 20:53 Pulse Rate 90 08/16/25 20:53 Respiratory Rate 24 08/16/25 20:53 Blood Pressure 149/82 08/16/25 20:53 O2 Sat by Pulse Oximetry 98 08/16/25 20:53 Pain Scale Pain Intensity 0 - Physical Exam General Appearance: no apparent distress, alert Eye Exam: PERRL/EOMI, eyes nml inspection Ears, Nose, Throat Exam: normal ENT inspection, moist mucous membranes Neck Exam: normal inspection, full range of motion Respiratory Exam: normal breath sounds, lungs clear, airway intact, No respiratory distress Cardiovascular Exam: regular rate/rhythm, normal heart sounds, normal peripheral pulses Gastrointestinal/Abdomen Exam: soft, normal bowel sounds, No tenderness, No mass Back Exam: normal inspection, normal range of motion, No CVA tenderness, No vertebral tenderness Extremity Exam: normal inspection, normal range of motion, pelvis stable, other (Tenderness to palpation right lateral shoulder and right dorsum of foot. There are superficial abrasions present. All extremities are neurovascular intact distally compartments are soft cap refill less than 2 seconds.) Neurologic Exam: alert, oriented x 3, cooperative, normal mood/affect, sensation nml, No motor deficits Skin Exam: normal color, warm, dry, No rash Lymphatic Exam: No adenopathy SpO2 Interpretation: normal SpO2: 96 O2 Delivery: Room Air - Course Nursing assessment & vital signs reviewed: Yes - Radiology Exams Foot X-ray Interpretation: Interpreted by me (No fracture or dislocation) Shoulder X-ray Interpretation: Interpreted by me (No fracture or dislocation) - CT Exams Head CT Interpretation: Tele-radiologist Report (No acute intracranial abnormality) Cervical Spine CT Interpretation: Tele-radiologist Report (No acute pathology observed) Ordered Tests: Active Orders 24 hr Category Date Time Status IV Insertion STAT Care 08/16/25 21:03 Active CERVICAL SPINE WO CONTRAST [CT] Stat Exams 08/16/25 21:04 Completed FOOT (MINIMUM 3 VIEWS) Stat Exams 08/16/25 21:05 Taken HEAD WITHOUT CONTRAST [CT] Stat Exams 08/16/25 21:04 Completed SHOULDER Stat Exams 08/16/25 21:05 Taken ACETAMINOPHEN Stat Lab 08/17/25 00:45 Completed CBC W DIFF Stat Lab 08/16/25 22:00 Completed CMP Stat Lab 08/16/25 22:00 Completed ETHYL ALCOHOL Stat Lab 08/17/25 00:45 Completed SALICYLATE Stat Lab 08/17/25 00:45 Completed TROPONIN Q4H Lab 08/16/25 22:00 Completed TROPONIN Q4H Lab 08/17/25 00:45 Completed TROPONIN Q4H Lab 08/17/25 05:15 Ordered Urine Triage Profile Stat Lab 08/17/25 00:48 Completed Medication Summary Generic Name Dose Route Start Last Admin Trade Name Freq PRN Reason Stop Dose Admin Sodium Chloride 1,000 mls @ 100 mls/hr 08/16/25 21:15 08/16/25 21:43 Sodium Chloride 0.9% 1000 Ml IV 09/15/25 21:14 100 mls/hr .Q10H WON Administration Discontinued Medications Generic Name Dose Route Start Last Admin Trade Name Freq PRN Reason Stop Dose Admin Acetaminophen 975 mg 08/16/25 21:06 08/16/25 21:43 Acetaminophen 325 Mg Tablet PO 08/16/25 21:07 975 mg STAT ONE Administration Acetaminophen Confirm 08/16/25 21:08 Acetaminophen 325 Mg Tablet Administered 08/16/25 21:09 Dose 975 mg .ROUTE .STK-MED ONE Ketorolac Tromethamine 30 mg 08/16/25 21:03 08/16/25 21:43 Ketorolac Tromethamine 30 Mg/Ml Inj IV 08/16/25 21:04 30 mg STAT ONE Administration Ketorolac Tromethamine Confirm 08/16/25 21:08 Ketorolac Tromethamine 30 Mg/Ml Inj Administered 08/16/25 21:09 Dose 30 mg .ROUTE .STK-MED ONE Lab/Rad Data: Laboratory Result Diagrams 08/16/25 22:00 08/16/25 22:00 Laboratory Results 08/17/25 08/17/25 08/17/25 Range/Units 00:48 00:45 00:45 WBC (4.23-9.07) x10^3/uL RBC (4.63-6.08) x10^6/uL Hgb (13.7-17.5) g/dL Hct (40.1-51.0) % MCV (79.0-92.2) fL MCH (25.7-32.2) pg MCHC (32.3-36.5) g/dL RDW (11.6-14.4) % Plt Count (163-337) x10^3/uL MPV (9.4-12.4) fL Gran % (34.0-67.9) % Immature Gran % (Auto) (0.001-0.429) % Nucleat RBC Rel Count (0.00-0.2) % Eos # (Auto) (0.04-0.54) x10^3/uL Immature Gran # (Auto) (0.001-0.031) x10^3u/L Absolute Lymphs (auto) (1.32-3.57) x10^3/uL Absolute Monos (auto) (0.30-0.82) x10^3/uL Absolute Nucleated RBC (0.00-0.012) x10^3u/L Lymphocytes % (21.8-53.1) % Monocytes % (5.3-12.2) % Eosinophils % (0.8-7.0) % Basophils % (0.2-1.2) % Absolute Granulocytes (1.78-5.38) x10^3/uL Basophils # (0.01-0.08) x10^3/uL Sodium (135-145) mmol/L Potassium (3.5-5.1) mmol/L Chloride (98-107) mmol/L Carbon Dioxide (22-30) mmol/L Anion Gap (5-15) MEQ/L BUN (9-20) mg/dL Creatinine (0.66-1.25) mg/dL Estimated GFR ML/MIN Glucose (74-106) mg/dL Calcium (8.4-10.2) mg/dL Total Bilirubin (0.2-1.3) mg/dL AST (17-59) U/L ALT (0-50) U/L Alkaline Phosphatase (38-126) U/L Troponin I < 0.012 (0.000-0.033) ng/mL Serum Total Protein (6.3-8.2) g/dL Albumin (3.5-5.0) g/dL Salicylates < 1.0 L (2-20) mg/dL Urine Opiates Level NEGATIVE (NEGATIVE) Ur Methadone NEGATIVE (NEGATIVE) Acetaminophen < 10 L (10-30) ug/ml Urine Barbiturates NEGATIVE (NEGATIVE) Ur Phencyclidine (PCP) NEGATIVE (NEGATIVE) Urine Amphetamine NEGATIVE (NEGATIVE) U Benzodiazepine Level NEGATIVE (NEGATIVE) Urine Cocaine NEGATIVE (NEGATIVE) Urine Marijuana (THC) NEGATIVE (NEGATIVE) Ethyl Alcohol < 10 (0-10) mg/dL 08/16/25 08/16/25 08/16/25 Range/Units 22:00 22:00 22:00 WBC 15.4 H (4.23-9.07) x10^3/uL RBC 4.79 (4.63-6.08) x10^6/uL Hgb 14.6 (13.7-17.5) g/dL Hct 43.5 (40.1-51.0) % MCV 90.8 (79.0-92.2) fL MCH 30.5 (25.7-32.2) pg MCHC 33.6 (32.3-36.5) g/dL RDW 12.8 (11.6-14.4) % Plt Count 209 (163-337) x10^3/uL MPV 10.5 (9.4-12.4) fL Gran % 83.5 H (34.0-67.9) % Immature Gran % (Auto) 0.4 (0.001-0.429) % Nucleat RBC Rel Count 0.0 (0.00-0.2) % Eos # (Auto) 0 L (0.04-0.54) x10^3/uL Immature Gran # (Auto) 0.06 H (0.001-0.031) x10^3u/L Absolute Lymphs (auto) 1.05 L (1.32-3.57) x10^3/uL Absolute Monos (auto) 1.41 H (0.30-0.82) x10^3/uL Absolute Nucleated RBC 0.00 (0.00-0.012) x10^3u/L Lymphocytes % 6.8 L (21.8-53.1) % Monocytes % 9.2 (5.3-12.2) % Eosinophils % 0.0 L (0.8-7.0) % Basophils % 0.1 L (0.2-1.2) % Absolute Granulocytes 12.87 H (1.78-5.38) x10^3/uL Basophils # 0.01 (0.01-0.08) x10^3/uL Sodium 143 (135-145) mmol/L Potassium 3.8 (3.5-5.1) mmol/L Chloride 109 H (98-107) mmol/L Carbon Dioxide 21 L (22-30) mmol/L Anion Gap 15.9 H (5-15) MEQ/L BUN 20 (9-20) mg/dL Creatinine 1.20 (0.66-1.25) mg/dL Estimated GFR 80.4 ML/MIN Glucose 123 H (74-106) mg/dL Calcium 9.6 (8.4-10.2) mg/dL Total Bilirubin 0.80 (0.2-1.3) mg/dL AST 37 (17-59) U/L ALT 38 (0-50) U/L Alkaline Phosphatase 56 (38-126) U/L Troponin I < 0.012 (0.000-0.033) ng/mL Serum Total Protein 6.8 (6.3-8.2) g/dL Albumin 4.4 (3.5-5.0) g/dL Salicylates (2-20) mg/dL Urine Opiates Level (NEGATIVE) Ur Methadone (NEGATIVE) Acetaminophen (10-30) ug/ml Urine Barbiturates (NEGATIVE) Ur Phencyclidine (PCP) (NEGATIVE) Urine Amphetamine (NEGATIVE) U Benzodiazepine Level (NEGATIVE) Urine Cocaine (NEGATIVE) Urine Marijuana (THC) (NEGATIVE) Ethyl Alcohol (0-10) mg/dL - Progress Progress: improved Progress Note: Patient is a 35-year-old male history of bipolar anxiety depression presents to our ED via EMS for evaluation post [place]. Patient has a significant psychiatric history. His parents do not believe that he takes his psychiatric medications as prescribed. Laboratory workup reveals a leukocytosis. However no fever or sources of infection. No meningeal signs. X-ray of right shoulder and right foot negative for fracture or dislocation. CT head C-spine negative as well. Cervical collar removed. Today was patient's second consecutive visit for the same. Patient wandering away from home apparently not having sound judgment. Patient received Toradol and acetaminophen for pain control. Patient resting comfortably. Patient was evaluated by Dr. Pavan Ding at [facility]. Patient accepted for transfer at 3:46 AM. Patient observed in our ED for several hours. Patient resting comfortably. Patient cooperative. Vitals have been stable throughout his stay. Patient updated on laboratory workup and imaging studies. Patient understood plan of care and voiced no other complaints or concerns. History obtained from EMS, [employer] officer and patient. Differential diagnosis includes medication noncompliance, cranial hemorrhage, brain mass Portions of this note were created with voice recognition technology. There may be grammatical, spelling, punctuation or sound alike errors Complexity of problem addressed is moderate acute complicated. No critical care time. Complexity of data reviewed and analyzed is extensive. Test ordered test reviewed results analyzed and correlated clinically with history and physical exam. Risk of complication and or risk of morbidity/mortality of patient management is high. Patient requires transfer to higher level of care. Vital stable. Time spent to transfer patient approximately 20 minutes. Plan of care established for shared decision making. No social determinants of health present to impede follow-up. Portions of this note were created with voice recognition technology. There may be grammatical, spelling, punctuation or sound alike errors 08/17/25 05:35 Counseled pt/family regarding: lab results, diagnosis, need for follow-up, rad results - Departure Departure Disposition: Transfer Clinical Impression: Fall, Leukocytosis, Foot sprain, Shoulder sprain, Noncompliance with medication regimen Condition: Stable Critical Care Time: No Referrals: SEPIDEH ALLAN [Primary Care Provider, [facility]] - Follow up/PCP as directed
--- NOTE | 2025-08-16 23:10 | XRAY ---
CLINICAL HISTORY: pain COMPARISON: CR neck 11/19/2008 reviewed TECHNIQUE: CT scan of the cervical spine was performed without the administration of intravenous contrast. Contiguous axial images were obtained from the skull base to the upper thoracic spine. Coronal and sagittal reformatted images were also reviewed. One of the following dose reduction techniques was utilized for this exam. Automated exposure control, adjustment of the mA and/or kV according to patient size, and use of iterative reconstruction. CTDI: 53.92 mGy. FINDINGS: Vertebrae: No evidence of acute fracture or dislocation. Loss of cervical lordosis with straightening of curvature. Tiny marginal osteophytes at few levels. Maintained vertebral heights. Intervertebral Discs: Limited evaluation due to motion artifact. Facet Joints: Mild degenerative changes. Prevertebral Soft Tissues: The prevertebral soft tissues are normal in thickness without evidence of mass or abnormal fluid collection. Additional Findings: Visualized sections of upper thorax show no significant abnormality IMPRESSION: 1. Loss of cervical lordosis with straightening of curvature, due to muscle spasm. Also seen on prior CR 2. Tiny marginal osteophytes at few levels. 3. Evaluation of intervertebral discs is limited due to motion artifacts. Recommended MR for further evaluation if clinically warranted Electronically Signed by: Blue Bill MD. (08/16/2025 23:07:22 EDT)
--- NOTE | 2025-08-16 23:46 | XRAY ---
CLINICAL HISTORY: pain COMPARISON: 09/21/2020 TECHNIQUE: Axial non-contrast CT scan of the brain was performed from the skull base to the high parietal region. One of the following dose reduction techniques was utilized for this exam: Automated exposure control, adjustment of the mA and/or kV according to patient size, or use of iterative reconstruction. FINDINGS: Brain Parenchyma: Normal attenuation of the cerebral hemispheres, cerebellum, and brainstem. No evidence of acute infarct, hemorrhage, or mass effect. No abnormal areas of hypoattenuation or hyperattenuation. Ventricular System: The ventricles are normal in size and configuration. There is no evidence of hydrocephalus or ventricular enlargement. Subarachnoid Spaces: The sulci and cisterns appear normal. There is no evidence of subarachnoid hemorrhage or extra-axial fluid collections. Cerebellum and Brainstem: There are no masses, lesions, or areas of abnormal density. Orbits: There is normal appearance of the globes, optic nerves, and extraocular muscles. There is no evidence of orbital masses or abnormal density. Sinuses: The paranasal sinuses are clear. There is no evidence of sinusitis or mucosal thickening. Mastoid Air Cells: The mastoid air cells are clear. There is no evidence of mastoiditis. Skull: The skull demonstrates normal morphology. Soft tissues of the bilateral scalp appear prominent in the temporal region. Stable. IMPRESSION: No acute abnormality is seen in this CT of the head without contrast. No interval changes. Electronically Signed by: Blue Bill MD. (08/16/2025 23:44:51 EDT)
[2025-08-17 01:16] LABS: ETHYL ALCOHOL < 10 mg/dL (0-10)
[2025-08-17 01:26] LABS: Amphetamine,Urine NEGATIVE (NEGATIVE); Barbiturate,Urine NEGATIVE (NEGATIVE); Benzodiazepine,Urine NEGATIVE (NEGATIVE); Cocaine,Urine NEGATIVE (NEGATIVE); Methadone,Urine NEGATIVE (NEGATIVE); Opiate,Urine NEGATIVE (NEGATIVE); PCP,Urine NEGATIVE (NEGATIVE); THC,Urine NEGATIVE (NEGATIVE)
[2025-08-17 03:06] VITALS: O2SAT 96
[2025-08-17 04:22] VITALS: PULSE 90
[2025-08-17 05:02] VITALS: BP 150/81; RESP 18
--- NOTE | 2025-08-17 08:38 | XRAY ---
Indication: Pain. Comparison: None 3 nonweightbearing views right foot demonstrates tiny posterior heel spur and tiny medial/lateral malleolus heterotopic ossifications. No other bony, articular, or soft tissue abnormalities.
--- NOTE | 2025-08-17 08:40 | XRAY ---
Indication: Pain following fall. Comparison: None 3 view right shoulder obtained. No bony, articular, or soft tissue abnormalities.
== END 2025-08-17 05:34 | disposition short-term general hospital (02) ==
LOC: ED 20:52
DX: Z04.3 Encounter for examination and observation following other accident (principal); D72.829 Elevated white blood cell count, unspecified; S93.601A Unspecified sprain of right foot, initial encounter; S43.401A Unspecified sprain of right shoulder joint, initial encounter; W17.81XA Fall down embankment (hill), initial encounter; Z91.148 Patient's other noncompliance with medication regimen for other reason; F20.9 Schizophrenia, unspecified; I10 Essential (primary) hypertension; Z79.84 Long term (current) use of oral hypoglycemic drugs; Z79.85 Long-term (current) use of injectable non-insulin antidiabetic drugs; Z79.899 Other long term (current) drug therapy
CPT/HCPCS: 36415; 70450; 72125; 73030; 73630; 80053; 80143; 80179; 80307; 82077; 84484; 85025; 96361; 96374; 99285; Q3014